=== PATIENT | male | born 1945 | race Caucasian/White ===

== ENCOUNTER → 2018-08-12 16:28 | Outpatient (CLI) | payer OTHER, SELFPAY ==
[2018-08-12 17:56] LABS: Add Manual Diff / Slide Review NO; Basophils Absolute Auto 100 /uL (0-100); Basophils Percent Auto 1.2 % (0-2); Eosinophils Absolute Auto 400 /uL (0-450); Eosinophils Percent Auto 6.9 % (2-4); Hematocrit 45.5 % (41-53); Hemoglobin 15.3 g/dL (13.5-17.5); Lymphocytes Absolute Auto 1600 /uL (1100-4500); Lymphocytes Percent Auto 25.4 % (25-40); Mean Corpuscular HGB Conc 33.7 % (30-36); Monocytes Absolute Auto 700 /uL (0-900); Monocytes Percent Auto 11.8 % (3-14); Neutrophils Absolute Auto 3400 /uL (1500-7000); Neutrophils Percent Auto 54.7 % (50-75); Platelet Count 281 X10^3/uL (150-400); Red Blood Cell Count 4.79 X10^6/uL (4.5-5.9); Red Cell Distribution Width 13.3 % (11.6-14.8); White Blood Cell Count 6.2 X10^3/uL (4.5-11.0)
[2018-08-12 18:18] LABS: Alanine Aminotransferase 26 IU/L (21-72); Albumin 4.4 g/dL (3.5-5.0); Albumin Globulin Ratio 1.6 (1.0-2.8); Alkaline Phosphatase 91 U/L (38-126); Aspartate Aminotransferase 29 IU/L (17-59); BUN Creatinine Ratio 21.7 (6-22); Bilirubin Total 0.7 mg/dL (0.2-1.3); Blood Urea Nitrogen 13 mg/dL (9-20); Calcium 9.1 mg/dL (8.4-10.2); Carbon Dioxide 23 mmol/L (22-32); Chloride 93 mmol/L (98-107); Estimated Glomerular Filt Rate > 60.0 mL/min (>60); Globulin 2.7 g/dL (1.7-4.1); Glucose 122 mg/dL (80-110); HEMOLYSIS 38 (0-50); Potassium 4.4 mmol/L (3.4-5.1); Sodium 129 mmol/L (137-145); Total Protein 7.1 g/dL (6.3-8.2)
[2018-08-12 18:47] LABS: Prostate Specific Antigen Scrn 0.724 ng/mL (0.1-4.0)
== END ==
PROVIDERS: Family Provider Family Medicine; PCP Family Medicine; Visit Provider Family Medicine
DX: I10 Essential (primary) hypertension (principal); Z51.81 Encounter for therapeutic drug level monitoring; Z12.5 Encounter for screening for malignant neoplasm of prostate
CPT/HCPCS: 36415; 80053; 84443; 85025; G0103

== ENCOUNTER → 2019-01-24 10:48 | Outpatient (CLI) | payer OTHER, SELFPAY ==
[2019-01-24 11:36] LABS: Alanine Aminotransferase 25 IU/L (21-72); Albumin 4.4 g/dL (3.5-5.0); Albumin Globulin Ratio 1.4 (1.0-2.8); Alkaline Phosphatase 71 U/L (38-126); Aspartate Aminotransferase 25 IU/L (17-59); BUN Creatinine Ratio 17.1 (6-22); Bilirubin Total 1.3 mg/dL (0.2-1.3); Blood Urea Nitrogen 12 mg/dL (9-20); Calcium 9.3 mg/dL (8.4-10.2); Carbon Dioxide 25 mmol/L (22-32); Chloride 95 mmol/L (98-107); Estimated Glomerular Filt Rate > 60.0 mL/min (>60); Globulin 3.1 g/dL (1.7-4.1); Glucose 111 mg/dL (80-110); HEMOLYSIS < 15 (0-50); Potassium 4.5 mmol/L (3.4-5.1); Sodium 129 mmol/L (137-145); Total Protein 7.5 g/dL (6.3-8.2)
[2019-01-24 14:05] LABS: Hemoglobin A1C% w Est Avg Glu 5.2 % (4.0-6.0)
== END ==
PROVIDERS: PCP Family Medicine; Visit Provider Family Medicine
DX: I10 Essential (primary) hypertension (principal); R73.9 Hyperglycemia, unspecified
CPT/HCPCS: 36415; 80053; 83036

== ENCOUNTER → 2019-04-06 16:37 | Outpatient (CLI) | payer OTHER, SELFPAY ==
[2019-04-06 18:07] LABS: Add Manual Diff / Slide Review NO; Basophils Absolute Auto 100 /uL (0-100); Basophils Percent Auto 1.1 % (0-2); Eosinophils Absolute Auto 300 /uL (0-450); Eosinophils Percent Auto 5.2 % (2-4); Hematocrit 45.8 % (41-53); Hemoglobin 15.8 g/dL (13.5-17.5); Lymphocytes Absolute Auto 1200 /uL (1100-4500); Lymphocytes Percent Auto 18.1 % (25-40); Mean Corpuscular HGB Conc 34.4 % (30-36); Mean Corpuscular Hemoglobin 32.9 PG (26-34); Mean Corpuscular Volume 95.6 fL (80-100); Monocytes Absolute Auto 700 /uL (0-900); Neutrophils Absolute Auto 4100 /uL (1500-7000); Neutrophils Percent Auto 64.6 % (50-75); Platelet Count 291 X10^3/uL (150-400); Red Blood Cell Count 4.79 X10^6/uL (4.5-5.9); White Blood Cell Count 6.4 X10^3/uL (4.5-11.0)
[2019-04-06 18:47] LABS: TSH w/ Reflex to FT4 1.44 uIU/mL (0.47-4.68)
== END ==
PROVIDERS: PCP Family Medicine; Visit Provider Family Medicine
DX: I44.0 Atrioventricular block, first degree (principal); R55 Syncope and collapse; R73.9 Hyperglycemia, unspecified
CPT/HCPCS: 36415; 84443; 85025

== ENCOUNTER → 2019-04-12 07:10 | Outpatient (CLI) | payer OTHER, SELFPAY ==
--- NOTE | 2019-04-12 08:17 | P.PCN_ITS ---
Cardiac Stress Test Report Referral & Results Date Patient Seen: 04/12/19 Time Patient Seen: 08:00 Requesting provider: Christopher Pryor Indication: Syncope Rest ECG: NSR Procedure Note: Today following both written and verbal informed consent the patient was exercised according to a standard Surendra protocol patient went for a total of 6 minutes achieving a maximum heart rate of 125 maximum systolic blood pressure of 208. This is approximately 7 METs. Exercise was terminated at this point because of fatigue. Patient was also given Cardiolite through a previously started Hep-Lock IV by the electroplating technician approximately 1 minute prior to the cessation of exercise. No signs or symptoms of angina. Occasional PVCs, but no other EKG changes. Normal hemodynamic response to exercise. CHEVY +10% on active scale. Impression: Low probability for ischemia. Will await perfusion imaging. Please note: Actual ECG tracings can be found in the PACS system.
--- NOTE | 2019-04-15 07:39 | DI.NM.S_ITS ---
DATE OF SERVICE: 04/12/2019 ORDERING PHYSICIAN: Christopher Pryor M.D. PROCEDURE PERFORMED: Exercise treadmill stress and rest myocardial perfusion imaging with gating to assess ejection fraction and regional wall motion. INDICATIONS: The patient is a 73-year-old hypertensive male with recent lightheadedness and an abnormal ECG. EXERCISE TREADMILL TESTING: The patient was able to exercise for a total of 6 minutes 2 seconds on a standard Surendra protocol, suggesting moderately impaired exercise capacity with an CHEVY of +15%. He had a normal heart rate response to exercise, achieving a maximum heart rate of 144 bpm (97% of his predicted maximum) and a mild hypertension blood pressure response with a resting blood pressure of 150/92, increasing to a maximum of 208/100. He had no chest discomfort. His resting ECG is normal with sinus rhythm. There were no significant ST segment shifts with exercise. There are rare isolated PVCs with exercise but no complex ectopy. At 5 minutes 10 seconds of exercise, at a heart rate of 124 bpm, 21.3 mCi of technetium-99 Myoview was injected and the patient was imaged 15 minutes later using a gated SPECT acquisition protocol. He returned 2 days later and was re- injected with an additional 20.4 mCi of technetium-99 Myoview and was imaged 30 minutes later, again using a gated SPECT acquisition protocol. FINDINGS: 1. Raw data: There is fairly good myocardial tracer uptake. Mild motion is noted on both the stress and the rest images, which could introduce artifact. The lung/heart ratio is normal at 0.30 with a normal TID ratio of 0.88. 2. Quantitative gated SPECT: Post-stress ejection fraction is estimated at 71% without any focal wall motion abnormality. Resting ejecting fraction is also 71% with a mildly increased end-diastolic volume of 140 mL. 3. Myocardial perfusion imaging: Post-stress supine images show a fairly normal myocardial perfusion pattern without any significant perfusion defects. There is a normal perfusion pattern in the prone position. The resting images show a similar perfusion pattern without any areas of improvement. CONCLUSION: 1. Normal myocardial perfusion study. 2. No evidence of myocardial ischemia or previous myocardial infarction. 3. Normal left ventricular systolic function without focal wall motion abnormalities although with mildly increased left ventricular volumes. 4. Moderately impaired exercise capacity without angina or ECG evidence of ischemia. He had a mild hypertensive blood pressure response to exercise. Troy Tineo - RS/fn/ts doc#: [id number]/job#: [id number] dd: 04/14/2019 12:52:00 dt: 04/15/2019 07:07:00 DICTATING MD/COPIES TO: Talat Marcelino MD; Christopher Pryor M.D. COPIES MNE: CLAUDIA MCMAHON
== END ==
PROVIDERS: PCP Family Medicine; Visit Provider Family Medicine
DX: R55 Syncope and collapse (principal); I44.0 Atrioventricular block, first degree; R94.31 Abnormal electrocardiogram [ECG] [EKG]; I10 Essential (primary) hypertension; R42 Dizziness and giddiness
CPT/HCPCS: 78452; 93016; 93017; 93018; A9502

== ENCOUNTER → 2019-04-24 07:54 | Outpatient (CLI) | payer OTHER, SELFPAY ==
--- NOTE | 2019-04-24 07:57 | DI.ECHO.S_ITS ---
[facility]---------+ [facility] +---------+ : : [address] : : [place], [place] : : : : [id number] : : : : Phone: [phone]+ Echocardiogram Report + + :Name: JACOB MACIAS Study Date: 04/24/2019 Height: 68 in : :[facility] Weight: 230 lb : : Gender: Male BSA: 2.2 m2 : :: 1945 Age: 73 yrs BP: 164/96 mmHg: :Reason For Study: Syncope : : Performed By: Anderson Gore : + + Interpretation Summary The study quality was technically difficult. Left ventricular ejection fraction is estimated to be 60 +/- 5%. Regional wall motion abnormalities cannot be excluded due to limited visualization. There is mild mitral regurgitation. Procedure: A two-dimensional transthoracic echocardiogram with color flow and Doppler was performed. The study quality was technically difficult. There is no prior echocardiogram noted for this patient. The patient was in normal sinus rhythm during the exam. Left Ventricle: The left ventricle is normal in size. There is mild-moderate concentric left ventricular hypertrophy. The left ventricular ejection fraction is grossly normal. Left ventricular ejection fraction is estimated to be 60 +/- 5%. Regional wall motion abnormalities cannot be excluded due to limited visualization. Right Ventricle: The right ventricle is normal in size and function. Atria: The left atrium is mildly dilated. Right atrial size is normal. The interatrial septum is intact with no evidence for an atrial septal defect. Mitral Valve: The mitral valve is normal in structure and function. There is mild mitral regurgitation. Aortic Valve: The aortic valve is trileaflet. There is mild aortic valve sclerosis. The aortic valve opens well. There is trace aortic regurgitation. Tricuspid Valve: The tricuspid valve is normal in structure and function. There is trace tricuspid regurgitation. Pulmonary artery pressures cannot be estimated because of the lack of a measurable TR jet velocity. Pulmonic Valve: The pulmonic valve is not well visualized. There is trace pulmonic regurgitation. Great Vessels: The aortic root is mildly dilated. The dimensions of the ascending aorta are normal. The pulmonary artery is normal size. The IVC is of normal diameter and collapses greater than 50% with a sniff. This suggests a low right atrial pressure of 3 mm Hg. Pericardium/ Pleura There is no pericardial effusion. There is no pleural effusion. MMode/2D Measurements & Calculations LVIDd: 4.5 cm LVOT diam: 2.1 cm LVIDs: 2.7 cm Ao root diam: 4.0 cm FS: 38.9 % Aortic Jxn: 3.0 cm EPSS: 0.90 cm asc Aorta Diam: 3.4 cm IVSd: 1.4 cm LVPWd: 1.4 cm LV franco. diameter/BSA (cm/m^2): 2.1 LV sys. diameter/BSA (cm/m^2): 1.3 LA A2 area: 23.3 cm2 RA long axis: 5.0 cm LA A4 area: 20.7 cm2 RA area: 11.0 cm2 LA length (vol): 5.4 cm RA vol: 20.9 ml LA vol: 76.4 ml RA : 9.6 ml/m2 LA vol index: 35.2 ml/m2 TAPSE: 1.9 cm Doppler Measurements & Calculations Ao V2 max: 129.2 cm/sec LVOT Max Clare: 109.9 cm/sec Ao V2 mean: 90.8 cm/sec LV V1 max P.8 mmHg Ao max P.7 mmHg LV V1 VTI: 25.4 cm Ao mean P.7 mmHg RELL(I,D): 3.0 cm2 Ao V2 VTI: 28.2 cm RELL(V,D): 2.8 cm2 sev ratio: 0.90 RELL indexed to BSA (cm^2/m^2): 1.4 MV E max clare: 48.7 cm/sec PA V2 max: 85.4 cm/sec MV A max clare: 80.3 cm/sec PA V2 mean: 63.1 cm/sec MV E/A: 0.61 PA mean P.7 mmHg Med Peak E' Clare: 4.2 cm/sec PA Accel Time: 0.12 sec E/E' med: 11.5 Lat Peak E' Clare: 5.4 cm/sec E/E' lat: 9.1 E/e' average: 10.3 MV dec time: 0.27 sec SV(LVOT): 84.0 ml Reading Physician:09:[id number]
== END ==
PROVIDERS: PCP Family Medicine; Visit Provider Family Medicine
DX: I08.0 Rheumatic disorders of both mitral and aortic valves (principal); R55 Syncope and collapse; I44.0 Atrioventricular block, first degree
CPT/HCPCS: 93306

== ENCOUNTER → 2019-10-06 08:49 | Outpatient (CLI) | payer MEDICARE, SELFPAY ==
[2019-10-06 09:36] LABS: Add Manual Diff / Slide Review NO; Basophils Absolute Auto 100 /uL (0-100); Basophils Percent Auto 1.9 % (0-2); Eosinophils Absolute Auto 400 /uL (0-450); Eosinophils Percent Auto 8.4 % (2-4); Hematocrit 42.5 % (41-53); Hemoglobin 14.7 g/dL (13.5-17.5); Lymphocytes Absolute Auto 1400 /uL (1100-4500); Lymphocytes Percent Auto 26.3 % (25-40); Mean Corpuscular HGB Conc 34.5 % (30-36); Mean Corpuscular Hemoglobin 32.8 PG (26-34); Mean Corpuscular Volume 95.1 fL (80-100); Monocytes Absolute Auto 600 /uL (0-900); Monocytes Percent Auto 11.8 % (3-14); Neutrophils Absolute Auto 2700 /uL (1500-7000); Neutrophils Percent Auto 51.6 % (50-75); Platelet Count 267 X10^3/uL (150-400); Red Blood Cell Count 4.47 X10^6/uL (4.5-5.9); Red Cell Distribution Width 13.1 % (11.6-14.8); White Blood Cell Count 5.2 X10^3/uL (4.5-11.0)
[2019-10-06 09:45] LABS: Alanine Aminotransferase 21 IU/L (<50); Albumin Globulin Ratio 1.4 (1.0-2.8); Alkaline Phosphatase 68 U/L (38-126); Aspartate Aminotransferase 23 IU/L (17-59); Bilirubin Total 0.7 mg/dL (0.2-1.3); Blood Urea Nitrogen 16 mg/dL (9-20); Calcium 9.4 mg/dL (8.4-10.2); Carbon Dioxide 23 mmol/L (22-32); Chloride 99 mmol/L (98-107); Estimated Glomerular Filt Rate > 60.0 mL/min (>60); Globulin 2.8 g/dL (1.7-4.1); Glucose 101 mg/dL (80-110); HEMOLYSIS 16 (0-50); Potassium 4.4 mmol/L (3.4-5.1); Sodium 130 mmol/L (137-145); Total Protein 6.8 g/dL (6.3-8.2)
[2019-10-06 10:55] LABS: Free T3, Triiodothyronine Free 3.57 pg/mL (2.77-5.27); Free T4, Direct Thyroxine 1.13 ng/dL (0.78-2.19)
[2019-10-06 11:02] LABS: Vitamin D 25 Hydroxy (D3) 74.9 ng/mL (30.0-100.0)
[2019-10-06 11:09] LABS: Thyroid Stimulating Hormone 1.84 uIU/mL (0.47-4.68)
== END ==
PROVIDERS: PCP Family Medicine; Referring Provider Family Medicine; Visit Provider Family Medicine
DX: I10 Essential (primary) hypertension (principal); R73.9 Hyperglycemia, unspecified
CPT/HCPCS: 36415; 80053; 82306; 84439; 84443; 84481; 85025

== ENCOUNTER 2020-01-06 14:17 | Observation (INO) | payer MEDICARE, SELFPAY ==
--- NOTE | 2020-01-06 14:23 | DI.CT.S_ITS ---
PROCEDURE: CT HEAD/BRAIN WO CON INDICATIONS: dizzy with falls TECHNIQUE: Noncontrast 4.5 mm thick angled axial sections acquired from the foramen magnum to the vertex, with coronal and sagittal reformats. For radiation dose reduction, the following was used: automated exposure control, adjustment of mA and/or kV according to patient size. COMPARISON: None. FINDINGS: Image quality: Excellent. CSF spaces: Basal cisterns are patent. No extra-axial fluid collections. The ventricles are symmetric in size and shape. Brain: No intracranial bleeds or masses. There is cerebral volume loss for age, with resultant ventricular and sulcal prominence. There are moderate to severe periventricular and deep white matter chronic small vessel ischemic changes. There is intracranial internal carotid artery atherosclerosis. Skull and face: Calvarium and visualized facial bones appear intact, without suspicious lesions. Sinuses: Visualized sinuses and mastoids are clear. IMPRESSION: 1. Age related volume loss and moderate to severe small vessel ischemic change. 2. No evidence acute stroke, hemorrhage, or mass. Dictated by: Kash Perea M.D. on 01/06/2020 at 13:41 Approved by: Kash Perea M.D. on 01/06/2020 at 13:43
[2020-01-06 14:26] VITALS: BP 176/89; PULSE 80; RESP 16; TEMP 35.8; O2SAT 97; BMI 35.7
[2020-01-06 14:50] LABS: Add Manual Diff / Slide Review NO; Basophils Absolute Auto 100 /uL (0-100); Eosinophils Absolute Auto 300 /uL (0-450); Eosinophils Percent Auto 5.8 % (2-4); Hematocrit 42.2 % (41-53); Hemoglobin 14.7 g/dL (13.5-17.5); Lymphocytes Absolute Auto 900 /uL (1100-4500); Lymphocytes Percent Auto 16.2 % (25-40); Mean Corpuscular HGB Conc 34.8 % (30-36); Mean Corpuscular Hemoglobin 32.9 PG (26-34); Mean Corpuscular Volume 94.5 fL (80-100); Monocytes Absolute Auto 700 /uL (0-900); Monocytes Percent Auto 13.4 % (3-14); Neutrophils Absolute Auto 3400 /uL (1500-7000); Neutrophils Percent Auto 63.6 % (50-75); Platelet Count 270 X10^3/uL (150-400); Red Blood Cell Count 4.47 X10^6/uL (4.5-5.9); Red Cell Distribution Width 12.7 % (11.6-14.8); White Blood Cell Count 5.4 X10^3/uL (4.5-11.0)
--- NOTE | 2020-01-06 14:54 | PC.NURSE ---
at bedside for eval
--- NOTE | 2020-01-06 14:56 | ED_ITS ---
HPI - Dizziness General Chief Complaint: Dizziness Stated Complaint: Dizzy and Falling Time Seen by Provider: 01/06/20 14:20 Source: patient Mode of arrival: Ambulatory Limitations: no limitations History of Present Illness HPI Narrative: 74-year-old male former smoker with history of hypertension presents with a chief complaint of a few days of multiple episodes of significant dizziness. He denies any other neurologic findings such as blurred vision, trouble with speech or focal numbness, tingling or weakness. He denies any injury. He denies any recent illness including runny nose, sneezing, coughing, inner ear trouble. He denies any chest pain or shortness of breath. He states that it started while on a massage table a few days ago when he was asked to roll over. He denies any change in diet or medications. Patient not activated as code stroke given duration of symptoms. MD complaint: dizziness Onset (ago): day(s) Timing: sudden onset Description: sense of movement and room spinning History of similar episodes: No History of trauma: No Severity: moderate Relieving factors: nothing Exacerbating factors: movement Related Data Home Medications Medication Instructions Recorded Confirmed FOLIC ACID/VIT A/VIT B1/VIT 1 tab PO QDAY #0 11/17/10 10/24/19 (#MULTIVITAMIN) Previous Rx's Medication Instructions Recorded fluoxetine 20 mg capsule 80 mg PO DAILY #360 cap 08/14/19 tamsulosin 0.4 mg capsule 0.4 mg PO QDAY #90 cap 11/14/19 losartan 100 mg tablet 100 mg PO DAILY #90 tab 01/03/20 Allergies Allergy/AdvReac Type Severity Reaction Status Date / Time No Known Drug Allergies Allergy Unknown Verified 10/24/19 10:34 neopreen Allergy Severe rash Uncoded 06/14/19 10:01 Review of Systems Constitutional Constitutional: Denies chills, Denies fatigue, Denies fever(s), Denies frequent falls, Denies lethargy and Denies weakness Eyes Eyes: Denies change in vision, Denies eye discharge, Denies irritation and Denies loss of vision ENT Ears, Nose, Mouth, and Throat: Denies change in voice, Denies dizziness, Denies neck pain, Denies sore throat and Denies throat swelling Cardiovascular Cardiovascular: Denies chest pain, Denies irregular heart rhythm, Denies lightheadedness, Denies palpitations, Denies dyspnea, Denies dyspnea on exertion and Denies orthopnea Respiratory Respiratory: Denies cough, Denies dyspnea, Denies dyspnea on exertion and Denies wheezing Gastrointestinal Gastrointestinal: Denies abdominal pain, Denies change in bowel habits, Denies diarrhea, Denies nausea and Denies vomiting Musculoskeletal Musculoskeletal: Denies neck pain and Denies numbness Integumentary/Breasts Skin/Breast: Denies pruritus, Denies erythema, Denies rash and Denies wounds Neurologic Neurologic: Denies behavioral changes, Denies confusion, Denies dizziness, Denies frequent falls, Denies loss of vision, Denies numbness and Denies weakness Psychiatric Psychiatric: Denies anxiety, Denies behavioral changes, Denies confusion, Denies depression, Denies homicidal ideation and Denies suicidal ideation Endocrine Endocrine: Denies fatigue, Denies flushing and Denies palpitations Hematologic/Lymphatic Hematologic/Lymphatic: Denies easy bruising Allergic/Immunologic Allergic/Immunologic: Denies urticaria, Denies throat swelling and Denies wheezing Patient History Medical History (Updated 01/06/20 @ 15:29 by Nikita Donnelly DO) 1st degree AV block (Acute) BPH (benign prostatic hyperplasia) (Chronic Unknown) 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) Depression (Chronic Unknown) Low back pain (Acute) Obesity (BMI 30-39.9) (Acute) Osteoarthritis (Chronic Unknown) Sleep apnea (Chronic Unknown) Syncope and collapse (Acute) Weight loss counseling, encounter for (Acute) Surgical History History of tonsillectomy Status post appendectomy Status post hernia repair Family History Father Heart disease Kidney disease Loud snoring Mother Obesity Hypertension Depression Anxiety Social History Smoking Status: Former smoker Tobacco: How many years used: 59 second hand exposure: No alcohol intake: never substance use type: does not use Smoking Status: Former smoker alcohol intake frequency: holidays/special occasions only Substance Use Type: does not use Exam Narrative Exam Narrative: GENERAL: [74] year old patient appears stated age. Well- nourished, well-developed patient, in mild distress. HEAD: Atraumatic. Normocephalic. EYES: Pupils equal round and reactive. Extraocular motions intact. No scleral icterus. No injection or drainage. ENT: Moist mucous membranes Nose without bleeding, purulent drainage. Throat without erythema, tonsillar hypertrophy or exudate. Airway patent. NECK: Trachea midline. Non tender CARDIOVASCULAR: Regular rate and rhythm without murmurs, gallops, or rubs. RESPIRATORY: Clear to auscultation. Breath sounds equal bilaterally. No wheezes, rales, or rhonchi. GASTROINTESTINAL: Abdomen soft, non-tender, nondistended. EXTREMITIES: No edema or joint tenderness. BACK: Nontender without deformity or crepitance. No flank tenderness. NEURO: AOx3. SKIN: No rash or erythema of visible areas Initial Vital Signs Initial Vital Signs: Vital Signs Temperature 96.5 F L 01/06/20 14:26 Pulse Rate 80 01/06/20 14:26 Respiratory Rate 16 01/06/20 14:26 Blood Pressure 176/89 H 01/06/20 14:26 Pulse Oximetry 97 01/06/20 14:26 Scores NIH Stroke Scale Level of Conciousness: Alert, keenly responsive Ask month/age: Answers both questions correctly. Open/close eyes, close hand: Performs both tasks correctly Best gaze horizontal: Normal Visual ferreira: No visual loss Facial palsy: Normal symetrical movement Left arm drift: No drift for full 10 sec Right arm drift: No drift for full 10 sec Left leg drift: No drift for full 5 sec Right leg drift: No drift for full 5 sec Limb ataxia: Absent Sensory on face/arms/legs: Normal, no sensory loss Best language: No aphasia, normal Dysarthria: Normal Extinction or inattention: No abnormality Total NIH Stroke scale score: 0 Course Course Course Narrative: given lack of ongoing reproduction of symptoms, lack of nystagmus it is difficult to attribute this directly to a peripheral vertigo. I've discussed with stroke neurologist (Linda) who shares this opinion. 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 Attempted to order MRI today, but they are already gone. Patient requires hospitalization to further evaluate for potential of posterior circulation [facility]. Orders Ordered: ED Orders 01/06/20 14:23 CT head/brain wo con Stat 01/06/20 14:43 Basic Metabolic Panel Stat Complete Blood Count AUTO DIFF Stat NT-proBNP (BNP-Adult 18+) Stat Troponin & CK Cardiac Panel Stat Vital Signs Vital signs: Vital Signs - 8 hr 01/06/20 14:26 01/06/20 15:02 Temperature 96.5 F L Pulse Rate 80 68 Respiratory Rate 16 18 Blood Pressure 176/89 H 150/67 H Pulse Oximetry 97 MDM - Dizziness Lab Data Result diagrams: 01/06/20 14:43 01/06/20 14:43 Labs: Lab Results 01/06/20 01/06/20 Range/Units 14:43 14:43 WBC 5.4 (4.5-11.0) X10^3/uL RBC 4.47 L (4.5-5.9) X10^6/uL Hgb 14.7 (13.5-17.5) g/dL Hct 42.2 (41-53) % MCV 94.5 (80-100) fL MCH 32.9 (26-34) PG MCHC 34.8 (30-36) % RDW 12.7 (11.6-14.8) % Plt Count 270 (150-400) X10^3/uL Neut % (Auto) 63.6 (50-75) % Lymph % (Auto) 16.2 L (25-40) % [place] % (Auto) 13.4 (3-14) % Eos % (Auto) 5.8 H (2-4) % Baso % (Auto) 1.0 (0-2) % Neut # (Auto) 3400 (4144-5000) /uL Lymph # (Auto) 900 L (2493-4419) /uL [place] # (Auto) 700 (0-900) /uL Eos # (Auto) 300 (0-450) /uL Baso # (Auto) 100 (0-100) /uL Sodium 126 L (137-145) mmol/L Potassium 5.1 (3.4-5.1) mmol/L Chloride 93 L (98-107) mmol/L Carbon Dioxide 28 (22-32) mmol/L BUN 14 (9-20) mg/dL Creatinine 0.65 L (0.66-1.25) mg/dL Estimated GFR > 60.0 (>60) mL/min BUN/Creatinine Ratio 21.5 (6-22) Glucose 88 (80-110) mg/dL Calcium 9.0 (8.4-10.2) mg/dL Total Creatine Kinase 62 (55-170) U/L CK-MB (CK-2) TNP CK-MB (CK-2) Rel Index TNP Troponin I < 0.012 (0.01-0.034) ng/mL NT-Pro-B Natriuret Pep 88 (<125) pg/mL Imaging Data CT scan - head: Radiologist's Impression: [address] [address] [address] Scan Report Signed Patient: Troy Tineo FMR#: [id number] : 7Acct:[id number] Age/Sex: 74 / MDate of Service: 01/06/20 Loc: ED Accession Number: [id number] Procedure: CT head/brain wo con Ordering Provider: Nikita Donnelly D.O. PROCEDURE: CT HEAD/BRAIN WO CON INDICATIONS: dizzy with falls TECHNIQUE: Noncontrast 4.5 mm thick angled axial sections acquired from the foramen magnum to the vertex, with coronal and sagittal reformats. For radiation dose reduction, the following was used: automated exposure control, adjustment of mA and/or kV according to patient size. COMPARISON: None. FINDINGS: Image quality: Excellent. CSF spaces: Basal cisterns are patent. No extra-axial fluid collections. The ventricles are symmetric in size and shape. Brain: No intracranial bleeds or masses. There is cerebral volume loss for age, with resultant ventricular and sulcal prominence. There are moderate to severe periventricular and deep white matter chronic small vessel ischemic changes. There is intracranial internal carotid artery atherosclerosis. Skull and face: Calvarium and visualized facial bones appear intact, without suspicious lesions. Sinuses: Visualized sinuses and mastoids are clear. IMPRESSION: 1. Age related volume loss and moderate to severe small vessel ischemic change. 2. No evidence acute stroke, hemorrhage, or mass. Dictated by: Kash Perea M.D. on 01/06/2020 at 13:41 Approved by: Kash Perea M.D. on 01/06/2020 at 13:43 ECG Data Attestation: I personally reviewed and interpreted this ECG as follows: Prior ECG tracings: not available for review Interpretation: EKG is normal sinus rhythm rate [ 70] and free of any signs of ischemia or ectopy. No ST segmental elevation or depression. No T wave inversions. AR prolonged (1st degree AV Block) at 224 Discharge Plan Departure Patient Disposition: Admitted as Observation Clinical Impression: Brain TIA, Acute hyponatremia Referrals: Christopher Pryor DO [Primary Care Provider] -
[2020-01-06 15:00] LABS: BUN Creatinine Ratio 21.5 (6-22); Blood Urea Nitrogen 14 mg/dL (9-20); Carbon Dioxide 28 mmol/L (22-32); Chloride 93 mmol/L (98-107); Creatine Kinase 62 U/L (55-170); Estimated Glomerular Filt Rate > 60.0 mL/min (>60); Glucose 88 mg/dL (80-110); Potassium 5.1 mmol/L (3.4-5.1); Sodium 126 mmol/L (137-145)
[2020-01-06 15:02] VITALS: BP 150/67; PULSE 68; RESP 18
[2020-01-06 15:06] LABS: HEMOLYSIS 90 (0-50)
[2020-01-06 15:12] LABS: NT-proBNP (BNP-Adult 18+) 88 pg/mL (<125); Troponin I < 0.012 ng/mL (0.01-0.034)
[2020-01-06 17:06] VITALS: BP 173/82; PULSE 69; RESP 19; O2SAT 97
[2020-01-06 17:40] LABS: Bacteria Urine None Seen; RBC Urine None Seen (0-5/HPF); WBC Urine None Seen (0-5/HPF)
[2020-01-06 17:46] LABS: Amorphous Sediment Urine 2+; Culture Indicated Urine Cult Not Indicated; Squamous Epithelial Cell Urine 0-1 /HPF (0-5/HPF)
[2020-01-06 17:50] VITALS: BP 162/95; PULSE 69; RESP 18; TEMP 36.8; O2SAT 96
[2020-01-06 17:53] LABS: COVID19 -Nasal RAPID Negative (Negative)
--- NOTE | 2020-01-06 18:35 | P.HP_ITS ---
History of Present Illness History of Present Illness Date Patient Seen: 01/06/20 Chief complaint: Dizzy and Falling Narrative: The patient is a 74-year-old male with a history of hypertension, chronic hyponatremia, obesity, depression, benign prostatic hypertrophy who was in his usual state of health until . The patient was getting massage rolled over and developed abrupt onset of vertigo. Describes the room is spinning feeling dizzy. That seemed to resolve. The patient got up to go to the restroom on Wednesday morning and fell on the ground because of severe dizziness. He had no numbness tingling shortness of breath with that no nausea or vomiting with that. Patient presented to the emergency room for evaluation as he had had 2 episodes of severe vertigo. In the emergency room he underwent a head CT which was negative. When transferring from the chair to the CT table the patient had another episode of severe vertigo. The room was actually spinning. He had some dizziness associated. That quickly resolved. He denies any slurring of his speech and he weakness of his arms or legs any headache any blurred vision or double vision. Patient has had no prior episodes of incidence like this. Given the severity of the vertigo the patient is admitted to the [facility] for further evaluation. 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) Depression (Chronic Unknown) FH: bilateral hip replacements (Acute) Low back pain (Acute) Obesity (BMI 30-39.9) (Acute) Osteoarthritis (Chronic Unknown) Sleep apnea (Chronic Unknown) Syncope and collapse (Acute) Weight loss counseling, encounter for (Acute) Surgical History History of tonsillectomy Status post appendectomy Status post hernia repair Family & Social History Family History Father Heart disease Kidney disease Loud snoring Mother Obesity Hypertension Depression Anxiety Safety & Behavioral: Feels Safe in Current Yes Environment Been Physically Hurt or No Threatened By a Person Tobacco & Substance use: Smoking Status Former smoker alcohol intake never alcohol intake frequency holiday/special occasion Substance Use Type does not use Meds Home Medications and Allergies Home Medications Medication Instructions Recorded Confirmed Type tamsulosin 0.4 mg capsule 0.4 mg PO QDAY #90 cap 11/14/19 01/06/20 Rx fluoxetine [Prozac] 80 mg PO DAILY 01/06/20 01/06/20 History losartan [Cozaar] 100 mg PO DAILY 01/06/20 01/06/20 History Allergies Allergy/AdvReac Type Severity Reaction Status Date / Time No Known Drug Allergies Allergy Unknown Verified 10/24/19 10:34 neopreen Allergy Severe rash Uncoded 06/14/19 10:01 Review of Systems Review of Systems ROS: Yes All systems reviewed with the patient and are negative except as otherwise documented Exam Vital Signs (past 8 hours): - 01/06/20 14:26 01/06/20 15:02 01/06/20 17:06 Temperature 96.5 F L Pulse Rate 80 68 69 Respiratory Rate 16 18 19 Blood Pressure 176/89 H 150/67 H 173/82 H Pulse Oximetry 97 97 01/06/20 17:50 Temperature 98.3 F Pulse Rate 69 Respiratory Rate 18 Blood Pressure 162/95 H Pulse Oximetry 96 Oxygen Delivery Method Room Air Narrative Exam Narrative: Pleasant elderly male lying in bed in no obvious distress HEENT: Normocephalic atraumatic, extraocular muscles are intact, no facial asymmetry, tongue is midline speech is fluent Neck: Supple without adenopathy, no carotid bruits noted Lungs clear to auscultation Cardiac exam: Regular rate rhythm normal S1-S2 with a 2/6 systolic ejection murmur Abdomen: Soft nontender nondistended without hepatosplenomegaly Extremities: No edema Skin: Erythematous plaques on the knees bilaterally Neuro exam: Cranial nerves 2-12 are intact, strength is symmetric and equal, sensation is grossly intact, gait is not assessed NIH stroke scale score of 0 Objective Labs Result Diagrams: 01/06/20 14:43 01/06/20 14:43 Labs: Laboratory Results - last 24 hr 01/06/20 01/06/20 01/06/20 14:43 14:43 17:23 WBC 5.4 RBC 4.47 L Hgb 14.7 Hct 42.2 MCV 94.5 MCH 32.9 MCHC 34.8 RDW 12.7 Plt Count 270 Neut % (Auto) 63.6 Lymph % (Auto) 16.2 L [place] % (Auto) 13.4 Eos % (Auto) 5.8 H Baso % (Auto) 1.0 Neut # (Auto) 3400 Lymph # (Auto) 900 L [place] # (Auto) 700 Eos # (Auto) 300 Baso # (Auto) 100 Sodium 126 L Potassium 5.1 Chloride 93 L Carbon Dioxide 28 BUN 14 Creatinine 0.65 L Estimated GFR > 60.0 BUN/Creatinine Ratio 21.5 Glucose 88 Calcium 9.0 Total Creatine Kinase 62 CK-MB (CK-2) TNP CK-MB (CK-2) Rel Index TNP Troponin I < 0.012 NT-Pro-B Natriuret Pep 88 Urine RBC None seen Urine WBC None seen Ur Squamous Epith Cells 0-1 /hpf Amorphous Sediment 2+ Urine Bacteria None seen Ur Culture Indicated? Cult not indicated COVID-19 PCR 01/06/20 17:23 WBC RBC Hgb Hct MCV MCH MCHC RDW Plt Count Neut % (Auto) Lymph % (Auto) [place] % (Auto) Eos % (Auto) Baso % (Auto) Neut # (Auto) Lymph # (Auto) [place] # (Auto) Eos # (Auto) Baso # (Auto) Sodium Potassium Chloride Carbon Dioxide BUN Creatinine Estimated GFR BUN/Creatinine Ratio Glucose Calcium Total Creatine Kinase CK-MB (CK-2) CK-MB (CK-2) Rel Index Troponin I NT-Pro-B Natriuret Pep Urine RBC Urine WBC Ur Squamous Epith Cells Amorphous Sediment Urine Bacteria Ur Culture Indicated? COVID-19 PCR Negative Assessment & Plan Assessment & Plan narrative: Impression 1. 74-year-old male admitted to the hospital with abrupt onset of vertigo -suspect benign positional vertigo -however given severity agree with further workup to include evaluation of cerebellar infarct -head MRI in the morning -PT consultation tomorrow -consider meclizine if vertigo return -will start him on a baby aspirin a CIWA -will start Lovenox for DVT prophylaxis -will obtain a fasting lipid profile -head CT unremarkable 2. Hypertension -continue losartan 3. Hyponatremia -may be related to SIADH from his as SSRI -discussed with the patient -will defer to PCP to evaluate for -will start on fluid restriction this evening 4. Benign prostatic hypertrophy -continue tamsulosin 5. Depression -continue fluoxetine for Patient is a full code will note that his record accordingly Patient admitted under observation anticipate discharge home tomorrow
[2020-01-06 18:46] VITALS: BMI 35.7
[2020-01-06] MEDS: TAMSULOSIN 0.4 MG CAPSULE PO (20:25)
[2020-01-06 21:46] VITALS: BP 164/80; PULSE 66; RESP 18; TEMP 36.2; O2SAT 97
[2020-01-06 23:30] VITALS: BP 155/87; PULSE 62; RESP 16; TEMP 36.4; O2SAT 95
[2020-01-07] VITALS (7 sets, daily range): BP systolic 154–176; BP diastolic 84–98; PULSE 61–72; RESP 16–20; TEMP 36.4–37; O2SAT 94–97
[2020-01-07 05:22] LABS: BUN Creatinine Ratio 23.1 (6-22); Blood Urea Nitrogen 15 mg/dL (9-20); Calcium 8.8 mg/dL (8.4-10.2); Carbon Dioxide 27 mmol/L (22-32); Chloride 95 mmol/L (98-107); Cholesterol 141 mg/dL (140-199); Estimated Glomerular Filt Rate > 60.0 mL/min (>60); Glucose 101 mg/dL (80-110); HDL Cholesterol 41 mg/dL (40-60); HEMOLYSIS < 15 (0-50); LDL Cholesterol Calculated 84 mg/dL (<100); Potassium 4.1 mmol/L (3.4-5.1); Sodium 127 mmol/L (137-145); Triglycerides 82 mg/dL (35-150)
--- NOTE | 2020-01-07 08:30 | CM.DANOTE ---
DCP: Case received, EMR reviewed and met with patient. Introduced self and role. Was able to obtain some information from patient regarding his baseline activity status prior to hospitalization. DCP assessment completed with information currently available. Patient is a 74 year old male who admitted yesterday afternoon to the care of the hospitalist team. PCP: Dr. Pryor. Payer: confirmed: [facility]. Patient came to the hospital via private vehicle secondary to dizziness. Patient holds current diagnosis of vertigo, as well as hyponatremia. He may be having an MRI today. He also has P.T/O.T. orders. He has history of HTN, as well as AV Block. Met with patient in his room. He was sitting up on the edge of his bed having breakfast. He is alert and oriented. He stated, this dizziness is new to him. Asked him about falls, and he indicated he fell just once, due to the dizziness. Patient stated that he is independent at baseline, drove himself here. He uses no DME supplies. He resides here in [place] with his spouse, Angella. Confirmed with him that his primary provider is Dr. Pryor. P: DCP to continue to follow. Will also discuss at team rounds, and will consult with P.T. Patient should be able to go home when he is medically stable. Jackelin De La Cruz RN/Art Tracer
[2020-01-07] MEDS: LOSARTAN 50 MG TABLET 100 MG PO (08:44)
[2020-01-07] MEDS: ASPIRIN EC 81 MG TABLET PO (08:44)
[2020-01-07] MEDS: FLUoxetine 20 MG CAPSULE 80 MG PO (08:44)
[2020-01-07] MEDS: ENOXAPARIN 40 MG/0.4 ML SYRINGE SUBCUT (08:44)
[2020-01-07] MEDS: SODIUM CHLORIDE 0.9% FLUSH 10 ML IV ×2 (08:44→20:48)
--- NOTE | 2020-01-07 10:49 | PT.IIE ---
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) Depression (Chronic Unknown) FH: bilateral hip replacements (Acute) Low back pain (Acute) Obesity (BMI 30-39.9) (Acute) Osteoarthritis (Chronic Unknown) Sleep apnea (Chronic Unknown) Syncope and collapse (Acute) Weight loss counseling, encounter for (Acute) Physical Therapy Inpatient Evaluation/Re-Eval M1 PT/OT-IP Prior Functional Status Start: 01/07/20 10:17 Freq: NEEDED Status: Active Protocol: Document 01/07/20 10:18 [facility] (Rec: 01/07/20 10:49 [facility] [id number]) Medical Review Prior Functional Status Medical History Reviewed Yes Diet/Fluid Consistency Regular Communication communication with nursing prior to Pt treatment. per ER documentation and rounds this AM Troy is awaiting a MRI to rule out posterior circulation stroke. In the ER there was a lack of nystagmus and it was difficult to asses if dizzyness is peripheral vertigo or posterior circulation stroke. No MRI available today (wednesday) so pt most likely staying another night in the hospital to have MRI on Wednesday AM Mobility and Gait pt ambulates independently without assistive device Activities of Daily Living and IADL's Ind for all ADL's Social History Household Members spouse Living Arrangements House Employment Status Retired M2 PT-IP Current Condition Start: 01/07/20 10:17 Freq: NEEDED Status: Active Protocol: Document 01/07/20 10:18 [facility] (Rec: 01/07/20 10:49 [facility] [id number]) Physical Therapy Current Condition Current Condition Evaluation Date 01/07/20 Treatment Diagnosis Dizzyness, vertigo Onset Date 01/04/20 during a massage Weight Bearing Status Weight Bearing Status Full Weight Bearing M3 PT-IP Subjective Start: 01/07/20 10:17 Freq: NEEDED Status: Active Protocol: Document 01/07/20 10:18 [facility] (Rec: 01/07/20 10:49 [facility] [id number]) Subjective Physical Therapy Visit Type Type Initial Evaluation Visit Start Time 09:50 Visit Stop Time 10:15 Total Visit Minutes 30 Notes pt laying comfortably in bed, no c/o dizzyness at rest. Physical Therapy Visit Comments Patient Comments Pt agress to PT an states he needs to get up to use the rest room. Per patient report his symptoms started during a massage. He was laying on his back and was asked to turn over and that is when his symptoms began. He states he went home after the massage but continued to have episodes of dizzyness. He drove himself to the ER on 04/14. He reports when he transfered from one bed to another in the ER the dizzyness came on suddenly. Other than that he is not able to attribute any other positions that have caused the dizzyness. Troy denies any other neurologic findings such as blurred vision, trouble with speech or focal numbness. Patient Goals Pts goals are to eliminate dizzyness episodes. Therapy Pain Assessment Pain Present Pain Present Denied Pain M4 PT-IP Mobility and Gait Start: 01/07/20 10:17 Freq: NEEDED Status: Active Protocol: Document 01/07/20 10:18 [facility] (Rec: 01/07/20 10:49 [facility] [id number]) PT-Bed Mobility Assessment Rolling Level of Assist Independent Supine to Sit Supine to Sit Standby Assistance Sit to Supine Sit to Supine Standby Assistance Scooting Scooting to Edge of Bed Standby Assistance PT-Transfer Assessment Sit to and From Stand Sit to and from Stand Standby Assistance Equipment Transfer Assistive Device Gait Belt Orthotic/Prosthetic Devices or Brace: No Transfers Transfer Destination Toilet Transfer Ability Level of Assist Standby Assistance Comments Mobility Comments pt transferred from supine to sitting at the edge of the bed with SBA and dizziness was assessed. No dizziness from supine to sit this am. After a few minutes of sitting at the edge of the bed with SBA and no dizziness Troy ambulated to the restroom with SBA. He stood to urinate with no loss of balance or c/o dizziness. He ambulated back to the bed with SBA. The doctor and nursing came in to chat with the patient and he was able to sit without support for approx 5 minutes for a conversation regarding his MRI which will be scheduled tomorrow (Wednesday) He then wished to transfer back to bed which he did IND. He noted once he laid down that he had mild dizziness, no nystagmus was noted Gait Assessment Gait Gait Assistance Required: Standby Assistance Distance (Feet) 15 Able to Maintain Weight Bearing Status Yes During Gait Assistive Devices Assistive Device Gait Belt Orthotic/Prosthetic Devices or Brace: No Gait Deviations General Gait Pattern Within Normal Limits Comments Gait Comments pt ambulated with normal gait pattern with gait belt and SBA . No loss of balance was noted. He ambulated from the bed to the bathroom and back to the bed. PT-Balance Assessment Sitting Balance and Reactions Static Sitting Balance Ability Normal Dynamic Sitting Balance Ability Normal Standing Balance and Reactions Static Standing Balance Ability Normal Dynamic Standing Balance Ability Good Comments Other Balance Tests/Deviations/Treatment Dizziness was not brought on : when patient was standing today, he did take a fall at home due to his sudden onset of dizziness. M5 PT-IP Objective Assessments Start: 01/07/20 10:17 Freq: NEEDED Status: Active Protocol: Document 01/07/20 10:18 [facility] (Rec: 01/07/20 10:49 [facility] [id number]) Orientation Orientation/Cognition Level of Alertness Alert Language Function Ability No Deficits Noted Memory Description No Deficits Noted Gross Range of Motion Upper Extremity ROM Assessment Within Functional Limits Lower Extremity ROM Assessment Within Functional Limits Impairments history of B hip replacement Strength Upper Extremity Strength Assessment Within Functional Limits Lower Extremity Strength Assessment Within Functional Limits Comments Strength Comments Right knee extension and quad strength 4/5 Coordination Assessment Gross Coordination Gross Coordination WNL Sensation Assessment Sensation Gross Sensation WNL Muscle Tone Muscle Tone WNL Yes M7 PT-IP Assessment and Plan Start: 01/07/20 10:17 Freq: NEEDED Status: Active Protocol: Document 01/07/20 10:18 [facility] (Rec: 01/07/20 10:49 [facility] [id number]) PT Summary Assessment and Plan Potential Rehabilitation Potential Good Status of Condition at Evaluation Evolving Summary Impairments Activity Tolerance Assessment Summary Troy is a 74 year old male who is awaiting a MRI for a new onset of dizziness that began 01/03/11 during a massage. The MRI is ordered to evaluate for potential of posterior circulation stroke. He denies any other neurologic findings such as blurred vision, trouble with speech or focal numbness, tingling or weakness. He is a former smoker with history of hypertension. With my examination today there was no nystagmus found. He is moving IND but I was SBA with a gait belt with him due to the history of his dizziness. He denied any dizziness at rest and with transitions from supine to sit, or sit to stand, and gait. He ambulated in his room to the bathroom and back with SBA and no loss of balance or dizziness. He did c/o dizziness when laying back down to bed. This dizziness was mild but there. He had gotten a shot for dizziness prior to our PT session today. It sounds like the plan is for him to stay another night in the hospital as MRI is not available today. He will undergo a MRI tomorrow to rule out posterior circulation stroke. Goals Bed Mobility Goal Independent Gait Goal Independent Frequency of Treatment Frequency Of Treatment Once a Day Treatment Plan Physical Therapy Treatment Plan Gait Training,Balance Retraining Recommendations To Nursing Amount of Assist Needed Standby Assistance Discharge Recommendations PT Discharge Recommendations Home Transportation Needs at Discharge Private Vehicle
[2020-01-07] MEDS: MECLIZINE HCL 12.5 MG TABLET 50 MG PO (11:37)
--- NOTE | 2020-01-07 16:14 | P.PN_ITS ---
Subjective Subjective Date Patient Seen: 01/07/20 Interval history: Patient is a 74-year-old male with history of hypertension BPH and depression admitted to the hospital for abrupt onset of dizziness. He had another episode this morning. Patient was given 1 dose of meclizine which she f marina has helped his symptoms. He is still awaiting MRI I MRI is not available today and will be obtained tomorrow. He was able to work with physical therapy today had no difficulty ambulating. Exam Vital Signs (past 8 hours): - 01/07/20 12:05 01/07/20 15:20 Temperature 97.5 F L 97.7 F Pulse Rate 66 71 Respiratory Rate 16 18 Blood Pressure 157/98 H 154/84 H Pulse Oximetry 96 94 Oxygen Delivery Method Room Air Oxygen Flow Rate 0 Narrative Exam Narrative: Pleasant gentleman in no acute distress Lungs: Clear to auscultation Cardiac exam: Regular rate and rhythm normal S1-S2 Abdomen: Soft and not Objective Labs Result Diagrams: 01/06/20 14:43 01/07/20 05:00 Labs: Laboratory Results - last 24 hr 01/06/20 01/06/20 01/07/20 17:23 17:23 05:00 Sodium Potassium Chloride Carbon Dioxide BUN Creatinine Estimated GFR BUN/Creatinine Ratio Glucose Calcium Triglycerides 82 Cholesterol 141 LDL Cholesterol, Calc 84 HDL Cholesterol 41 Urine RBC None seen Urine WBC None seen Ur Squamous Epith Cells 0-1 /hpf Amorphous Sediment 2+ Urine Bacteria None seen Ur Culture Indicated? Cult not indicated COVID-19 PCR Negative 01/07/20 05:00 Sodium 127 L Potassium 4.1 Chloride 95 L Carbon Dioxide 27 BUN 15 Creatinine 0.65 L Estimated GFR > 60.0 BUN/Creatinine Ratio 23.1 H Glucose 101 Calcium 8.8 Triglycerides Cholesterol LDL Cholesterol, Calc HDL Cholesterol Urine RBC Urine WBC Ur Squamous Epith Cells Amorphous Sediment Urine Bacteria Ur Culture Indicated? COVID-19 PCR Assessment & Plan Assessment & Plan narrative: Impression 1. Abrupt onset vertigo -question benign position over versus cerebellar infarct -await head MRI which will be obtained tomorrow -continue meclizine -fasting lipid profile obtained total cholesterol 141 -will defer echo unless MRI confirms stroke 2. 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 Hypertension -continue MONIQUE-inhibitor 4. BPH -continue tamsulosin Quality VTE Deep Vein Thrombosis/Pulmonary Embolism Present on Admission: No
[2020-01-07] MEDS: TAMSULOSIN 0.4 MG CAPSULE PO (20:48)
--- NOTE | 2020-01-08 | DI.MRI.S_ITS ---
PROCEDURE: MR STROKE Pre- and post-contrast brain MRI, non-contrast brain MR angiogram, pre- and postcontrast neck MR angiogram INDICATIONS: r/o cerebellar infarct. TECHNIQUE: Brain: Noncontrast axial T1 spin echo, axial T2 fast spin echo, sagittal and axial FLAIR, coronal T2 fast spin echo, axial gradient echo, axial diffusion and ADC through the brain. After the administration of contrast, axial 3D VIBE of the cranial vasculature and brain. Brain MRA: Non-contrast 3-D time of flight MR angiogram, with multiple rijkivy-zmmgnnztb-zmxbmikayd (MIP) reformats performed. Neck MRA: Axial and sagittal TruFISP through the neck. Coronal dynamic MR angiogram during administration of contrast in the arterial and venous phases, with 3-dimenstional cvegycw-yxjysywre-eqsauteiok (MIP) reformats constructed from subtraction images. COMPARISON: [facility], CT, CT HEAD/BRAIN WO CON, 01/06/2020, 14:29. FINDINGS: Image quality: Excellent. BRAIN: The ventricular system and cortical sulci demonstrate atrophy, consistent for the patient's stated age. There are areas of increased T2/FLAIR signal intensity within the periventricular and subcortical white matter. There is no acute intra-or extra axial fluid collection. No acute hemorrhage, mass lesion or midline shift. Brainstem is unremarkable. There are no areas of restricted diffusion. Globes are symmetrical. Sinuses are aerated. Osseous structures are intact. BRAIN MR ANGIOGRAM: Anterior circulation: Intracranial internal carotid arteries are normal in size and enhancement. The flow within the paired anterior cerebral arteries is normal and symmetric. The flow within the middle cerebral arteries is normal and symmetric. The anterior communicating artery is seen. No stenoses, occlusions, or aneurysms. Posterior circulation: The visualized portions of the vertebral arteries demonstrate normal caliber, and join to form a normal appearing basilar artery. The flow within the posterior cerebral arteries is normal and symmetric. No stenoses, occlusions, or aneurysms. NECK MR ANGIOGRAM: The origins of the left and right common, internal and external carotid arteries demonstrate no areas of hemodynamically significant stenosis, vascular occlusion or aneurysmal dilation. Origins of the left and right vertebral arteries demonstrate no areas of hemodynamically significant stenosis, vascular occlusion or aneurysmal dilation. Aortic arch demonstrates conventional anatomy. Limited, visualized portions of the subclavian vasculature are unremarkable. IMPRESSION: 1. No acute intracranial process. No changes of acute ischemia. 2. Moderate to severe atrophy and chronic microvascular ischemic changes. 3. No areas of hemodynamically significant stenosis, vascular occlusion or aneurysmal dilation within the anterior or posterior circulation. 4. No areas of hemodynamically significant stenosis, vascular occlusion or aneurysmal dilation within the neck vasculature. Dictated by: Leatha Munoz M.D. on 01/08/2020 at 11:57 Approved by: Leatha Munoz M.D. on 01/08/2020 at 12:02
[2020-01-08 04:58] VITALS: BP 149/82; PULSE 66; RESP 18; TEMP 36.8; O2SAT 96
[2020-01-08 08:19] VITALS: BP 163/97; PULSE 68; RESP 18; TEMP 36.4; O2SAT 95
[2020-01-08] MEDS: SODIUM CHLORIDE 0.9% FLUSH 10 ML IV (08:25)
[2020-01-08 08:27] VITALS: BP 163/97; PULSE 68
[2020-01-08] MEDS: LOSARTAN 50 MG TABLET 100 MG PO (08:27)
[2020-01-08] MEDS: FLUoxetine 20 MG CAPSULE 80 MG PO (08:28)
[2020-01-08] MEDS: ASPIRIN EC 81 MG TABLET PO (08:28)
[2020-01-08] MEDS: ENOXAPARIN 40 MG/0.4 ML SYRINGE SUBCUT (08:30)
--- NOTE | 2020-01-08 10:11 | PT.IPTN ---
Physical Therapy Treatment Note M2 PT-IP Current Condition Start: 01/07/20 10:17 Freq: NEEDED Status: Active Protocol: Document 01/07/20 10:18 AMH (Rec: 01/07/20 10:49 AMH [id number]) Physical Therapy Current Condition Current Condition Evaluation Date 01/07/20 Treatment Diagnosis Dizzyness, vertigo Onset Date 01/04/20 during a massage Weight Bearing Status Weight Bearing Status Full Weight Bearing M3 PT-IP Subjective Start: 01/07/20 10:17 Freq: NEEDED Status: Active Protocol: Document 01/08/20 09:55 CLB (Rec: 01/08/20 12:06 CLB [id number]) Subjective Physical Therapy Visit Type Type Treatment Note Visit Start Time 09:55 Visit Stop Time 10:11 Total Visit Minutes 16 Notes OT present for tx. Physical Therapy Visit Comments Patient Comments Pt agreeable to participate with therapy. Therapy Pain Assessment Pain Present Pain Present Denied Pain M4 PT-IP Mobility and Gait Start: 01/07/20 10:17 Freq: NEEDED Status: Active Protocol: Document 01/08/20 09:55 CLB (Rec: 01/08/20 12:06 CLB [id number]) PT-Bed Mobility Assessment Rolling Level of Assist Independent Supine to Sit Supine to Sit Independent Sit to Supine Sit to Supine Independent Scooting Scooting to Edge of Bed Independent PT-Transfer Assessment Sit to and From Stand Sit to and from Stand Standby Assistance,Contact Guard Assistance Equipment Transfer Assistive Device Gait Belt Orthotic/Prosthetic Devices or Brace: No Transfers Transfer Destination Chair,Toilet Transfer Ability Level of Assist Standby Assistance,Contact Guard Assistance Comments Mobility Comments Pt is independent with all bed mobility and CGA for standing , pt stated he had slight dizziness with standing that remained throughout treat. Pt ambulated to BR, sat on toilet to urinate. Pt then stood and ambulated to sink to wash hands requiring SBA for standing balance at counter. Pt then ambulated in vidal CGA ~75ft w/o AD. Pt returned to room sitting in chair as Dr. English present for rounds. Gait Assessment Gait Gait Assistance Required: Standby Assistance,Contact Guard Assist Distance (Feet) 75 Able to Maintain Weight Bearing Status Yes During Gait Assistive Devices Assistive Device Gait Belt Orthotic/Prosthetic Devices or Brace: No Gait Deviations General Gait Pattern Within Normal Limits Comments Gait Comments Pt with slight dizziness in standing requiring SBA-CGA for gait. M5 PT-IP Objective Assessments Start: 01/07/20 10:17 Freq: NEEDED Status: Active Protocol: Document 01/07/20 10:18 AMH (Rec: 01/07/20 10:49 AMH [id number]) Orientation Orientation/Cognition Level of Alertness Alert Language Function Ability No Deficits Noted Memory Description No Deficits Noted Gross Range of Motion Upper Extremity ROM Assessment Within Functional Limits Lower Extremity ROM Assessment Within Functional Limits Impairments history of B hip replacement Strength Upper Extremity Strength Assessment Within Functional Limits Lower Extremity Strength Assessment Within Functional Limits Comments Strength Comments Right knee extension and quad strength 4/5 Coordination Assessment Gross Coordination Gross Coordination WNL Sensation Assessment Sensation Gross Sensation WNL Muscle Tone Muscle Tone WNL Yes M7 PT-IP Assessment and Plan Start: 01/07/20 10:17 Freq: NEEDED Status: Active Protocol: Document 01/08/20 09:55 CLB (Rec: 01/08/20 12:06 CLB [id number]) PT Summary Assessment and Plan Potential Rehabilitation Potential Good Status of Condition at Evaluation Evolving Summary Impairments Activity Tolerance Assessment Summary Pt BP in supine 182/98, second BP in supine 174/92, BP in standing after activity 166/93 . Pt is independent for bed mobility and SBA-CGA for transfers and gait. Goals Bed Mobility Goal Independent Gait Goal Independent Frequency of Treatment Frequency Of Treatment Once a Day Treatment Plan Physical Therapy Treatment Plan Gait Training,Balance Retraining Recommendations To Nursing Amount of Assist Needed Standby Assistance Discharge Recommendations PT Discharge Recommendations Home Transportation Needs at Discharge Private Vehicle
--- NOTE | 2020-01-08 10:19 | OT.IP.EVAL ---
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) Depression (Chronic Unknown) FH: bilateral hip replacements (Acute) Low back pain (Acute) Obesity (BMI 30-39.9) (Acute) Osteoarthritis (Chronic Unknown) Sleep apnea (Chronic Unknown) Syncope and collapse (Acute) Weight loss counseling, encounter for (Acute) Surgical History (Last Reviewed 01/06/20 @ 18:37 by Maren English MD) History of tonsillectomy Status post appendectomy Status post hernia repair Occupational Therapy Inpatient Evaluation/Re-Eval M1 PT/OT-IP Prior Functional Status Start: 01/07/20 10:17 Freq: NEEDED Status: Active Protocol: Document 01/08/20 11:29 CGR (Rec: 01/08/20 11:38 CGR [email or web address]) Medical Review Prior Functional Status Medical History Reviewed Yes Diet/Fluid Consistency Regular Communication Pt is an effective verbal communicator. Mobility and Gait pt ambulates independently without assistive device Activities of Daily Living and IADL's Ind for all ADL's Social History Household Members spouse Living Arrangements House Number of Floors (Floors) Two Floors Number of Stairs To Enter/Railing? 3 steps with no rails. can stay on entry tech. Home Environment High Toilet,Walk in Shower Home Equipment Hand Held Shower,Grab Bars Near Toilet,Grab Bars In Shower Employment Status Retired M2 OT-IP Current Condition Start: 01/08/20 11:28 Freq: Status: Active Protocol: Document 01/08/20 11:29 CGR (Rec: 01/08/20 11:38 CGR [email or web address]) Occupational Therapy Current Condition Current Condition Evaluation Date 01/08/20 Treatment Diagnosis dizziness, rule out posterior circulation CVA vs vertigo Diagnosis Onset Date 01/06/20 M3 OT- IP Subjective and Pain Start: 01/08/20 11:28 Freq: Status: Active Protocol: Document 01/08/20 11:29 CGR (Rec: 01/08/20 11:38 CGR [email or web address]) OT- Subjective Occupational Therapy Visit Type Type Initial Evaluation Visit Start Time 09:52 Visit Stop Time 10:19 Total Visit Minutes 27 Notes Partial co-treat with P.T. Occupational Therapy Visit Comments Patient Comments I feel fine except for the dizziness OT Pain Assessment Pain When Pain Assessed At Rest Pain Present Pain Present Denied Pain M4 OT- IP ADL's Start: 01/08/20 11:28 Freq: Status: Active Protocol: Document 01/08/20 11:29 CGR (Rec: 01/08/20 11:38 CGR [email or web address]) OT [id number] Comments OT Self-Feeding Comments not meal time OT ADL-Grooming General Evaluation Grooming Ability Independent Comments OT Grooming Comments washign hands at sink OT ADL-Oral Care Comments Oral Care Comments not performed OT ADL-Dressing General Eval Lower Body Dressing Ability Independent Areas Needing Assistance Socks OT ADL-Toileting General Evaluation Toileting Ability Independent Comments OT Toileting Comments seated on toielt OT ADL-Bathing Bathing Type Bathing Type Shower General Evaluation Bathing Ability Independent Devices Bathing Equipment Hand Held Shower Sprayer, Shower Chair with Arms Comments OT Bathing Comments Pt started on shower then left with nursing as pt was performing with IND. Pt agreeable. M5 OT- IP IADL's Start: 01/08/20 11:28 Freq: Status: Active Protocol: Document 01/08/20 11:29 CGR (Rec: 01/08/20 11:38 CGR [email or web address]) OT-Instrumental Activities of Daily Living Deficits IADL Deficits Identified No Deficits Home Safety Awareness Awareness of Need for Assistance at Home Good Awareness Ability to Problem Solve Emergency Able to Problem Solve Situations Medication Management Medication Management No Deficits Identified Money Management Money Management No Deficits Identified Meal Preparation Meal Preparation No Deficits Identified Spray Operator Spray Operator No Deficits Identified Driving Driving Comments Pt understand that he should not be driving given his dizziness. M6 OT- IP Functional Cognition Start: 01/08/20 11:28 Freq: Status: Active Protocol: Document 01/08/20 11:29 CGR (Rec: 01/08/20 11:38 CGR [email or web address]) Cognitive Factors Limiting Selfcare Function Cognitive Ability Level of Alertness Alert Patient Orientation Name,Age,Birthday,Month,Date, Year,Day of Week,Place, Situation Attention Span Ability Capable of Focused Attention, Capable of Sustained Attention Ability to Follow Commands Able to Follow Multi-Step Commands Memory Description No Deficits Noted Safety Awareness No Deficits Noted OT- Vision and Hearing OT- Hearing Assessment OT- Hearing Assessment WFL OT- Vision Assessment Visual Acuity Glasses All The Time Visual Attentiveness WFL Occular Pursuits WFL Visual Convergence WFL Vision Assessment Comments Pt wears bifocals M7 OT- IP Mobility and Balance Start: 01/08/20 11:28 Freq: Status: Active Protocol: Document 01/08/20 11:29 CGR (Rec: 01/08/20 11:38 CGR [email or web address]) OT- Bed Mobility Assessment Rolling Type of Rolling Roll to Left Level of Assistance Independent Supine to Sit Supine to Sit Assist Independent Scooting Scooting to Edge of Bed Independent OT-Transfer Assessment Sit to and From Stand Sit to and from Stand Standby Assistance,Contact Guard Assistance Transfers Transfer Ability Standby Assistance,Contact Guard Assistance Technique Transfer Destination Bed,Chair,Shower Stall,Toilet Transfer Technique Stand Step Pivot Devices Transfer Assistive Devices Gait Belt OT- Balance Assessment Sitting Balance and Reactions Static Sitting Balance Ability Normal Dynamic Sitting Balance Ability Normal M8 OT- IP Objective Assessments Start: 01/08/20 11:28 Freq: Status: Active Protocol: Document 01/08/20 11:29 CGR (Rec: 01/08/20 11:38 CGR [email or web address]) OT Gross Range of Motion Upper Extremity Range of Motion Assessment Within Functional Limits OT Strength Upper Extremity Strength Assessment Within Functional Limits Comments Strength Comments 4+/5 OT- Coordination Assessment Upper Extremity Finger to Nose Test Within Functional Limits Finger Tapping Test Within Functional Limits OT-Muscle Tone Assessment Muscle Tone WNL Yes OT Sensation Assessment Edema Edema Absent M9 OT- IP Assessment and Plan Start: 01/08/20 11:28 Freq: Status: Active Protocol: Document 01/08/20 11:29 CGR (Rec: 01/08/20 11:38 CGR [email or web address]) OT Summary Assessment and Plan Potential Rehabilitation Potential Excellent Analytic Complexity at Evaluation Low Summary OT Impairments Balance,Functional Mobility Progress Towards Goals Progressing Toward Goals Assessment Summary Pt presents as a low complexity evaluation with dizziness. Pt is awaiting MRI to rule out posterior CVA. Pt is IND for ADLs and CGA to SBA for mobility d/t dizziness. Will defer functional mobility to P.T. at this time. No further OT needs. Frequency of Treatment Frequency Of Treatment Discharge Discharge Recommendations OT Discharge Recommendations Home Other Discharge Recommendations No drivign till dizziness has resolved. Transportation Needs at Discharge Private Vehicle
[2020-01-08] MEDS: MECLIZINE HCL 12.5 MG TABLET 25 MG PO (10:21)
--- NOTE | 2020-01-08 13:02 | CM.DPC ---
DCP Discharge Home Per MD, pt had MRI today around 1030 to rule out stroke vs positional vertigo and MRI results showed no sign of CVA and therefore pt medically stable to d/c home with spouse today and outpt follow up with ENT clinic towards outpt PT for vertigo. Per PT/OT, pt tolerated ADL's and ambulation well with some residual dizziness and recommending safe d/c home with spouse. SW met bedside with pt and he is relieved that MRI did not show CVA and agreeable with d/c home with spouse today and outpt follow up. Plan: Patient to d/c home later today via spouse POV and no SW needs at this time. LANIE Payton
--- NOTE | 2020-01-08 14:13 | PC.NURSE ---
Discharge: IV dc'd intact. Tele dc'd. Reviewed all d/c info thoroughly with patient. 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 He plans to make f/u with PCP [facility], and plans to ask PCP for referral to PT. Reviewed s/sx stroke/TIA, instructed to call 911 with any of them. Patient verbalized understanding of d/c info and stated no further questions. All belongings sent with patient at d/c. Ambulating indep at d/c, gait steady, reported vertigo sx tolerable. Wheeled out to private vehicle by this advertising copywriter.
--- NOTE | 2020-01-08 14:38 | PM.DS.1 ---
History of Present Illness History of Present Illness Chief complaint: Dizzy and Falling Narrative: The patient is a 74-year-old male with a history of hypertension, chronic hyponatremia, obesity, depression, benign prostatic hypertrophy who was in his usual state of health until . The patient was getting massage rolled over and developed abrupt onset of vertigo. Describes the room is spinning feeling dizzy. That seemed to resolve. The patient got up to go to the restroom on Wednesday morning and fell on the ground because of severe dizziness. He had no numbness tingling shortness of breath with that no nausea or vomiting with that. Patient presented to the emergency room for evaluation as he had had 2 episodes of severe vertigo. In the emergency room he underwent a head CT which was negative. When transferring from the chair to the CT table the patient had another episode of severe vertigo. The room was actually spinning. He had some dizziness associated. That quickly resolved. He denies any slurring of his speech and he weakness of his arms or legs any headache any blurred vision or double vision. Patient has had no prior episodes of incidence like this. Given the severity of the vertigo the patient is admitted to the hospital for further evaluation. Discharge Providers Provider Date of admission: 01/06/20 17:09 Discharge Date: 01/08/20 Primary care physician: Christopher Pryor DO Consults: 01/06/20 18:31 Consult to Discharge Planning Routine Comment: Consult to Occupational Therapy Evaluate & Treat Comment: Physician Instructions: Evaluate and treat Consult to Physical Therapy Evaluate & Treat Comment: Physician Instructions: Evaluate and Treat Consult to Speech Therapy Evaluate & Treat Comment: Physician Instructions: Evaluate and treat Discharge provider: Maren English MD Summary Hospital Course Discharge Diagnosis: 1. Vertigo 2. Probable benign positional vertigo 3. Hypertension 4. BPH 5. Depression Hospital Course: Patient was admitted to the [facility] for abrupt onset of vertigo. He underwent a head CT which was negative. The patient ultimately had a MRI of the brain which showed no evidence of an acute stroke. He was started on meclizine which helped his symptoms somewhat. He continues to have vertigo although minimally compared to prior to admission patient was hypertensive throughout the hospital stay. Amlodipine 5 mg was added to his regimen and the patient was deemed appropriate for did after evaluation by physical therapy and discharged home. Plans for follow-up care the patient will follow-up with his primary care physician Dr. Ross. He has been asked to be referred to outpatient physical therapy for vestibular training. Patient will obtain a blood pressure cuff at home and follow-up with Dr. Ross regarding hypertension as well. Status at Discharge Cognitive/behavioral status at discharge: oriented Functional status at discharge: independent ambulation Overall status at discharge: patient is not back to baseline Time Spent with Patient Time spent: Less than 30 minutes Exam Vital Signs (past 8 hours): - 01/08/20 08:19 01/08/20 08:27 Temperature 97.5 F L Pulse Rate 68 68 Respiratory Rate 18 Blood Pressure 163/97 H 163/97 H Pulse Oximetry 95 Oxygen Delivery Method Room Air Oxygen Flow Rate 0 Narrative Exam Narrative: Pleasant gentleman in no acute distress Lungs: Clear to auscultation Cardiac exam: Regular rate rhythm normal S1-S2 Abdomen: Soft nontender Extremities: No edema Objective Labs Result Diagrams: 01/06/20 14:43 01/07/20 05:00 Discharge Assessment & Plan Assessment and Plan Assessment: 1. Benign positional vertigo 2. Hypertension Plan of Treatment: 1. Add amlodipine 5 mg daily to blood pressure regimen To meclizine as needed for dizziness Three outpatient physical therapy appointment for vestibular training. Discharge Plan Discharge Plan Patient Disposition: Home Discharge orders & Medications Prescriptions: New meclizine 12.5 mg Tablet 25 mg PO TID PRN (Reason: Vertigo) Qty: 30 RF: 0 amlodipine 5 mg tablet 5 mg PO DAILY Qty: 30 RF: 0 Continued tamsulosin [Flomax] 0.4 mg capsule 0.4 mg PO QDAY Qty: 90 RF: 0 fluoxetine [Prozac] 20 mg capsule 80 mg PO DAILY RF: 0 losartan [Cozaar] 100 mg tablet 100 mg PO DAILY RF: 0 Follow up/Referrals: Christopher Pryor DO [Primary Care Provider] - Discharge Health Status Multidrug resistant organism: No MDRO Diet/Activity/Treatments Diet: Low-sodium Visit Report/Discharge Packet Instructions: DI for Vertigo, How to Prevent Falls, Meclizine Visit Report Forms: Patient Portal/API, Stroke Signs & Symptoms Discharge Data Primary Care Provider: Christopher Pryor Attending Provider: Maren English Admit Date/Time: 01/06/20 17:09 Discharges patient from system. Discharge Date/Time: 01/08/20 14:19 Quality VTE Deep Vein Thrombosis/Pulmonary Embolism Present on Admission: No
== END 2020-01-08 14:19 | disposition home or self-care (01) ==
LOC: ED 15:29 → AC 17:10
PROVIDERS: Admitting Provider Internal Medicine; Emergency Provider Emergency Medicine; PCP Family Medicine; Referring Provider Emergency Medicine; Visit Provider Internal Medicine
DX: R42 Dizziness and giddiness (principal); Z87.891 Personal history of nicotine dependence; I10 Essential (primary) hypertension; Z11.59 Encounter for screening for other viral diseases; F32.9 Major depressive disorder, single episode, unspecified; N40.0 Benign prostatic hyperplasia without lower urinary tract symptoms
CPT/HCPCS: 36415; 70450; 70548; 70553; 80048; 80061; 81003; 81015; 82550; 83880; 84484; 85025; 87635; 93005; 96372; 97116; 97161; 97165; 97535; 99284; G0378; J1650

== ENCOUNTER → 2020-08-10 09:59 | Outpatient (CLI) | payer MEDICARE, SELFPAY ==
[2020-08-10 10:55] LABS: COVID19 -Nasal RAPID Negative (Negative)
== END ==
PROVIDERS: PCP Family Medicine; Visit Provider Physician Assistant
DX: Z20.822 Contact with and (suspected) exposure to COVID-19
CPT/HCPCS: 87635; C9803

== ENCOUNTER 2020-08-13 07:27 | Day surgery (SDC) | payer MEDICARE, SELFPAY ==
[2020-08-13] MEDS: CATARACT EYE COMPOUND (10 DROPS/SYRINGE) 3 DROPS EYE-OP (07:53)
[2020-08-13] MEDS: PROPARACAINE 0.5% OPHTH SOL 2 DROPS EYE-OP (07:53)
[2020-08-13 07:59] VITALS: BP 131/77; PULSE 67; RESP 16; TEMP 36.4; O2SAT 97; BMI 33.4
--- NOTE | 2020-08-13 09:03 | PM.PREOP ---
Pre-operative Note Interval Note History & Physical reviewed/Exam performed by Physician: Yes Changes to H&P: No
--- NOTE | 2020-08-13 09:03 | PM.OP.1 ---
Operative Date/Time/Diagnoses Pre-op diagnosis: Nuclear cataract right eye Procedure & Clinicians Procedure: Cataract Surgery Same procedure as scheduled: Yes Surgeon: Kana Garcia Anesthesia Type: MAC +/- and Sedation Operative Notes Procedure in detail: Patient brought to the operating suite. Tetracaine drops placed in the right eye. Patient was prepped and draped in sterile manner. Wire lid speculum was placed in the eye. Betadine drops were placed on the eye. This was irrigated. Lidocaine jelly was placed on the eye. A paracentesis port was created with a side-port blade. 0.1 mL 1% preservative free lidocaine was injected into the anterior chamber. The anterior chamber was deepened with viscoelastic. 2.6 mm keratome was used to create a temporal clear corneal incision. Cystotome and Utrata forceps were used to create continuous tear capsulorrhexis. Balanced salt solution was used to hydro dissect the nucleus. The phacoemulsification handpiece was inserted and the nucleus was removed using the stop and chop technique. The pupil was floppy and miotic. The irrigation aspiration handpiece was inserted and the remaining cortex was removed. Anterior chamber was deepened with viscoelastic. An Dugan DIB00 intraocular lens with a power of 24.0 was injected into the capsular bag. Irrigation aspiration handpiece was inserted and the remaining viscoelastic was removed. Incision was hydrated with balanced salt solution and found to be leak free with pressure with Weck-Graciela sponges. 0.1 mL Vigamox injected anterior chamber. 0.3 mL Kenalog 10 mg was injected subconjunctivally. Lid speculum was removed. The patient left the operating room in excellent condition. Complications: none Post-operative Condition: stable Disposition: same day surgery
[2020-08-13] MEDS: PHENYLEPHRINE/LIDOCAINE VIAL (OR) 0.2 ML EYE-OP (09:25)
[2020-08-13] MEDS: LIDOCAINE 2% (GLYDO) 6 ML GEL TOP (09:26)
[2020-08-13] MEDS: MOXIFLOXACIN INJ 4 MG/0.8 ML VIAL 0.5 MG EYE-OP (09:26)
[2020-08-13] MEDS: TRIAMCINOLONE 50 MG/5 ML VIAL INJ (09:26)
[2020-08-13] MEDS: TETRACAINE 0.5% OPHTH DROPS 4 ML 2 DROPS EYE-OP (09:26)
[2020-08-13] MEDS: BALANCED SALT IRRIG SOLN NO.2 500 ML, EPINEPHrine 1 MG IRR (09:27)
[2020-08-13 09:44] VITALS: BP 151/76; PULSE 56; RESP 16; TEMP 36.6; O2SAT 99
--- NOTE | 2020-08-13 10:10 | SUR.PHASEII ---
Pt left when ready and left in stable condition.
== END 2020-08-13 09:45 | disposition home or self-care (01) ==
PROVIDERS: PCP Family Medicine; Referring Provider Family Medicine; Visit Provider Ophthalmology
PROC: (CPT 66984; principal; 2020-08-13 09:15)
DX: H25.11 Age-related nuclear cataract, right eye (principal); F32.9 Major depressive disorder, single episode, unspecified
CPT/HCPCS: 66984; J0171; J2250; J3301

== ENCOUNTER → 2020-08-31 10:38 | Outpatient (CLI) | payer MEDICARE, SELFPAY ==
[2020-08-31 12:12] LABS: COVID19 -Nasal RAPID Negative (Negative)
== END ==
PROVIDERS: PCP Family Medicine; Referring Provider Student in an Organized Health Care Education/Training Program; Visit Provider Student in an Organized Health Care Education/Training Program
DX: Z01.812 Encounter for preprocedural laboratory examination (principal); Z20.822 Contact with and (suspected) exposure to COVID-19
CPT/HCPCS: 87635

== ENCOUNTER → 2020-08-31 10:53 | Outpatient (CLI) | payer MEDICARE, SELFPAY ==
--- NOTE | 2020-08-31 10:55 | DI.RAD.S_ITS ---
PROCEDURE: XR RIBS LT MIN 3V W CXR1V INDICATIONS: fall, L rib pain T4-6 anterolateral TECHNIQUE: 2 views of the left ribs were acquired, along with a single view chest. COMPARISON: [facility], CR, CHEST 2 VIEW, 07/22/2017, 19:06. [facility], CR, XR CHEST 2 VIEWS, 07/17/2017, 16:12. FINDINGS: Surgical changes and devices: None. Bones and chest wall: No fractures or dislocations. No suspicious bony lesions. Overlying soft tissues appear unremarkable. Age-appropriate bony degenerative changes are seen. Lungs and pleura: No pleural effusions or pneumothorax. Lungs appear clear. Mediastinum: The cardiac contours are within normal limits. The aorta demonstrates calcification and tortuosity. IMPRESSION: No definite, displaced rib fractures are seen. No pneumothorax. Dictated by: Koko Palma M.D. on 08/31/2020 at 10:23 Approved by: Koko Palma M.D. on 08/31/2020 at 10:25
== END ==
PROVIDERS: PCP Family Medicine; Referring Provider Student in an Organized Health Care Education/Training Program; Visit Provider Student in an Organized Health Care Education/Training Program
DX: Z01.812 Encounter for preprocedural laboratory examination (principal); Z20.822 Contact with and (suspected) exposure to COVID-19; R07.81 Pleurodynia
CPT/HCPCS: 71101; 87635

== ENCOUNTER 2020-09-03 06:30 | Day surgery (SDC) | payer MEDICARE, SELFPAY ==
[2020-09-03 06:56] VITALS: BP 136/79; PULSE 65; RESP 18; TEMP 36.6; O2SAT 97; BMI 32.6
[2020-09-03] MEDS: PROPARACAINE 0.5% OPHTH SOL 2 DROPS EYE-OP (07:07)
[2020-09-03] MEDS: CATARACT EYE COMPOUND (10 DROPS/SYRINGE) 3 DROPS EYE-OP (07:07)
--- NOTE | 2020-09-03 07:27 | PM.PREOP ---
Pre-operative Note Interval Note History & Physical reviewed/Exam performed by Physician: Yes Changes to H&P: No
--- NOTE | 2020-09-03 07:27 | PM.OP.1 ---
Operative Date/Time/Diagnoses Pre-op diagnosis: Nuclear Cataract Left eye Post-op diagnosis: same Procedure & Clinicians Same procedure as scheduled: Yes Surgeon: Kana Garcia Anesthesia Type: MAC +/- and Sedation Operative Notes Procedure in detail: Patient brought to the operating suite. Tetracaine drops placed in the left eye. Patient was prepped and draped in sterile manner. Wire lid speculum was placed in the eye. Betadine drops were placed on the eye. This was irrigated. Lidocaine jelly was placed on the eye. A paracentesis port was created with a side-port blade. 0.1 mL 1% preservative free lidocaine was injected into the anterior chamber. The anterior chamber was deepened with viscoelastic. 2.6 mm keratome was used to create a temporal clear corneal incision. The iris was floppy and miotic. A 6.25mm malyugin ring was used to enlarge the pupile. Cystotome and Utrata forceps were used to create continuous tear capsulorrhexis. Balanced salt solution was used to hydro dissect the nucleus. The phacoemulsification handpiece was inserted and the nucleus was removed using the stop and chop technique. The irrigation aspiration handpiece was inserted and the remaining cortex was removed. Anterior chamber was deepened with viscoelastic. An Dugan DIB00 intraocular lens with a power of 24.0 was injected into the capsular bag. The malyugin ring was removed. Irrigation aspiration handpiece was inserted and the remaining viscoelastic was removed. Incision was hydrated with balanced salt solution and found to be leak free with pressure with Weck-Graciela sponges. 0.1 mL Vigamox injected anterior chamber. 0.3 mL Kenalog 10 mg was injected subconjunctivally. Lid speculum was removed. The patient left the operating room in excellent condition. Complications: none Post-operative Condition: stable Disposition: same day surgery
[2020-09-03] MEDS: CHONDROIDTIN/SOD HYALURONATE 1.05 ML SYRINGE INTRAOCULA (07:51)
[2020-09-03] MEDS: PHENYLEPHRINE/LIDOCAINE VIAL (OR) 0.2 ML EYE-OP (07:52)
[2020-09-03] MEDS: LIDOCAINE 2% (GLYDO) 6 ML GEL TOP (07:53)
[2020-09-03] MEDS: MOXIFLOXACIN INJ 4 MG/0.8 ML VIAL 0.5 MG EYE-OP (07:53)
[2020-09-03] MEDS: BALANCED SALT IRRIG SOLN NO.2 500 ML, EPINEPHrine 1 MG IRR (07:53)
[2020-09-03] MEDS: TETRACAINE 0.5% OPHTH DROPS 4 ML 2 DROPS EYE-OP (07:53)
[2020-09-03] MEDS: TRIAMCINOLONE 50 MG/5 ML VIAL INJ (07:54)
[2020-09-03 08:11] VITALS: BP 126/69; PULSE 64; RESP 16; TEMP 36.7; O2SAT 97
--- NOTE | 2020-09-03 08:29 | SUR.PHASEII ---
Pt ready to go, called, unable to pick pt up, pt kept till arrives.
--- NOTE | 2020-09-03 09:14 | SUR.PHASEII ---
0850: arrived, pt left in stable condition.
== END 2020-09-03 08:50 | disposition home or self-care (01) ==
PROVIDERS: PCP Family Medicine; Referring Provider Family Medicine; Visit Provider Ophthalmology
PROC: (CPT 66984; principal; 2020-09-03 07:45)
DX: H25.12 Age-related nuclear cataract, left eye (principal); F32.9 Major depressive disorder, single episode, unspecified; G47.33 Obstructive sleep apnea (adult) (pediatric); N40.0 Benign prostatic hyperplasia without lower urinary tract symptoms; Z79.83 Long term (current) use of bisphosphonates
CPT/HCPCS: 66984; J0171; J2250; J3301

== ENCOUNTER → 2020-09-10 11:35 | Outpatient (CLI) | payer MEDICARE, SELFPAY ==
--- NOTE | 2020-09-10 11:37 | DI.RAD.S_ITS ---
PROCEDURE: XR WRIST LT MIN 3V INDICATIONS: L- hand/ wrist pain TECHNIQUE: 4 views of the wrist were acquired. COMPARISON: [facility], [place], XR HAND LT MIN 3V, 09/10/2020, 11:39. [facility], [place], WRIST MINIMUM 3 VIEWS LEFT, 11/01/2012, 9:26. FINDINGS: Bones: Linear lucency at the radial styloid. No dislocations. No suspicious bony lesions. Scaphoid view: Intact. Soft tissues: No suspicious soft tissue calcifications. IMPRESSION: Concern for nondisplaced radial styloid fracture. Alternately, this could be a skin fold. Correlate for point tenderness. Follow-up radiographs in 10-14 days could be a full for further evaluation Dictated by: Silvano Mg M.D. on 09/10/2020 at 12:08 Approved by: Silvano Mg M.D. on 09/10/2020 at 12:11
--- NOTE | 2020-09-10 11:37 | DI.RAD.S_ITS ---
PROCEDURE: XR HAND LT MIN 3V INDICATIONS: L- hand/ wrist pain TECHNIQUE: 3 views of the hand(s) acquired. COMPARISON: [facility], CR, XR WRIST LT MIN 3V, 09/10/2020, 11:39. [facility], CR, HAND 3V LEFT, 11/01/2012, 9:30. FINDINGS: Bones: Linear lucency at the radial styloid. No dislocations. Carpal bones are normally aligned. No suspicious bony lesions. Soft tissues: No suspicious soft tissue calcifications. IMPRESSION: Possible radial styloid fracture. Correlate with point tenderness. Follow-up radiographs in 10-14 days could be helpful for further evaluation. Dictated by: Silvano Mg M.D. on 09/10/2020 at 12:11 Approved by: Silvano Mg M.D. on 09/10/2020 at 12:12
== END ==
PROVIDERS: PCP Family Medicine; Referring Provider Physician Assistant; Visit Provider Physician Assistant
DX: M25.532 Pain in left wrist (principal); M79.642 Pain in left hand
CPT/HCPCS: 73110; 73130

== ENCOUNTER → 2021-01-03 13:08 | Outpatient (CLI) | payer MEDICARE, SELFPAY ==
[2021-01-03 14:52] LABS: Prostate Specific Antigen 0.953 ng/mL (0.10-4.00)
== END ==
PROVIDERS: PCP Family Medicine; Referring Provider Specialist; Visit Provider Specialist
DX: N40.1 Benign prostatic hyperplasia with lower urinary tract symptoms (principal); N13.8 Other obstructive and reflux uropathy
CPT/HCPCS: 36415; 84153

== ENCOUNTER → 2021-01-11 08:58 | Outpatient (CLI) | payer MEDICARE, SELFPAY ==
[2021-01-11 10:27] LABS: Add Manual Diff / Slide Review NO; Basophils Absolute Auto 100 /uL (0-100); Basophils Percent Auto 3.2 % (0-2); Eosinophils Absolute Auto 300 /uL (0-450); Eosinophils Percent Auto 6.6 % (2-4); Hemoglobin 14.2 g/dL (13.5-17.5); Lymphocytes Absolute Auto 800 /uL (1100-4500); Lymphocytes Percent Auto 19.1 % (25-40); Mean Corpuscular HGB Conc 34.6 % (30-36); Mean Corpuscular Volume 95.4 fL (80-100); Monocytes Absolute Auto 500 /uL (0-900); Monocytes Percent Auto 13.3 % (3-14); Neutrophils Absolute Auto 2300 /uL (1500-7000); Neutrophils Percent Auto 57.8 % (50-75); Platelet Count 266 X10^3/uL (150-400); Red Cell Distribution Width 12.9 % (11.6-14.8)
[2021-01-11 10:39] LABS: Alanine Aminotransferase 19 IU/L (<50); Albumin 4.1 g/dL (3.5-5.0); Albumin Globulin Ratio 1.6 (1.0-2.8); Alkaline Phosphatase 71 U/L (38-126); Aspartate Aminotransferase 24 IU/L (17-59); BUN Creatinine Ratio 19.2 (6-22); Blood Urea Nitrogen 10 mg/dL (9-20); Carbon Dioxide 25 mmol/L (22-32); Chloride 97 mmol/L (98-107); Cholesterol 143 mg/dL (140-199); Estimated Glomerular Filt Rate > 60.0 mL/min (>60); Globulin 2.6 g/dL (1.7-4.1); Glucose 109 mg/dL (80-110); HDL Cholesterol 62 mg/dL (40-60); HEMOLYSIS < 15 (0-50); LDL Cholesterol Calculated 71 mg/dL (<100); Potassium 4.1 mmol/L (3.4-5.1); Sodium 128 mmol/L (137-145); Total Protein 6.7 g/dL (6.3-8.2); Triglycerides 52 mg/dL (35-150)
== END ==
PROVIDERS: PCP Family Medicine; Referring Provider Family Medicine; Visit Provider Family Medicine
DX: R32 Unspecified urinary incontinence (principal); Z12.5 Encounter for screening for malignant neoplasm of prostate
CPT/HCPCS: 36415; 80053; 80061; 85025; G0103

== ENCOUNTER 2021-03-18 13:45 | Outpatient (RCR) | payer MEDICARE, SELFPAY ==
--- NOTE | 2021-02-28 15:20 | PT.OIE ---
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 awareness Low back pain Nasal bleeding Obesity (BMI 30-39.9) Obstructive sleep apnea, adult Osteoarthritis (Unknown) Syncope and collapse Urinary incontinence Weight loss counseling, encounter for Past Surgical History (Last Reviewed 01/09/21 @ 16:12 by Gena Yu MD) History of hip replacement History of tonsillectomy Status post appendectomy Status post hernia repair Visit Care Team Role Provider Type Christopher Pryor DO Attending Provider Physician Family Provider Primary Care Provider Referring Provider Specialty: [facility] Address: [address] [place] [address] Email: Physical Therapy Initial Evaluation PT-OP-A Visit Information Start: 02/27/21 10:43 Freq: Status: Active Protocol: Document 02/28/21 11:15 AMB (Rec: 02/28/21 15:08 AMB [email or web address]) Out-Patient Physical Therapy Visit Information Visit Information Visit Type Initial Evaluation Visit Start Time 11:15 Visit Stop Time 12:00 Total Visit Minutes 45 Visit Number 1 PT-OP-B Current Condition Start: 02/27/21 10:43 Freq: Status: Active Protocol: Document 02/28/21 11:16 AMB (Rec: 02/28/21 11:41 AMB [id number]) Current Condition History of Current Condition Onset Date 8 months ago Current Complaints urinary leaking History of Current Condition 8 months ago leaking started, and has been staying the same since. Changes the thorpe once a day and they are damp. Can feel the leak happening, but hasn't found a pattern to when the leak happens. Does drink coffee and has been trying to drink more water as a part of a weight loss plan. Plays pickleball and isn't sure if that increaseses the leaking with activity. Long history of prostate hyperplasia that makes initiating the stream challenging. Prior Functional Status Baseline Function- ADL's Independent Baseline Function- Mobility Independent Current Functional Impairments (Reported) Functional Limitations- ADL's Nocturia, leaking- unsure when PT-OP-C Subjective Start: 02/27/21 10:43 Freq: Status: Active Protocol: Document 02/28/21 11:15 AMB (Rec: 02/28/21 15:08 AMB [email or web address]) Patient Questionnaires Pelvic Floor Distress Inventory Questionnaire (PFDI- SF20) Pelvic Floor Score 12 PT-OP-I Pelvic Floor Start: 02/27/21 10:43 Freq: Status: Active Protocol: Document 02/28/21 11:46 AMB (Rec: 02/28/21 12:03 AMB [id number]) Pelvic Floor Assessment SEMG (uV) Baseline 5 10 Second Contraction 9 Recruitment Pattern Fair Relaxation Fair Stability of Hold Poor/Slow PT-OP-Q Treatments Start: 02/27/21 10:43 Freq: Status: Active Protocol: Document 02/28/21 11:15 AMB (Rec: 02/28/21 15:08 AMB [email or web address]) Neuro Re-Education Treatment Other Activities 1 Details sEMG Comments long holds- cues needed to avoid using abdominal muscles PT-OP-T Assessment and Plan Start: 02/27/21 10:43 Freq: Status: Active Protocol: Document 02/28/21 11:15 AMB (Rec: 02/28/21 15:08 AMB [email or web address]) Physical Therapy Assessment Rehab Potential Rehabilitation Potential Good Evaluation Complexity Number of Personal Factors/Comorbidities 1-2 Number of Body Systems Impaired 1-2 Clinical Presentation at Evaluation Stable Impairments Impairments Functional Activities,Strength Goals Two Impairment Continence Short Term Goal (STG) Troy will be aware of when/ if he is leaking and be able to contract his pelvic floor during those times. STG Duration 4 weeks One Impairment Strength Short Term Goal (STG) Troy will contract his pelvic floor muscles for 10 seconds without compensating with his abdominal muscles. STG Duration 4 weeks Detention Goal (LTG) Troy will contract his pelvic floor muscles while moving from sit to stand. LTG Duration 8 weeks Assessment Summary Assessment Troy attends physical therapy with what he reports is constant leakage, but he wears one pad a day. He has not really found a pattern to his leaking, but does think sometimes he can feel it when he leaks. He does drink coffee and has increased his fluid consumption and thinks that has make the leaking slightly worse. On sEMG he did display poor strength and tended to over use his abdominal muscles. He was educated in urge reduction and pelvic floor strengthening and will benefit from further strengthening and behavior training. Physical Therapy Plan Frequency and Duration Frequency of Treatment 1x/Week Duration of Treatment 8 weeks Plan of Care Start Date 02/28/21 Plan of Care End Date 04/25/21 Therapeutic Interventions Therapeutic Interventions Home Exercise Program,Manual Therapy,Neuromuscular Re- education,Self-Care/Home Management,Therapeutic Activities,Therapeutic Exercises Modalities Biofeedback,Electric Stimulation Next Visit Focus/Plan Next Note Type Treatment Note Next Visit Plan Follow up on urge reduction techniques, bladder diary, quick flicks and long holds
--- NOTE | 2021-02-28 15:21 | PT.OPPOC ---
Addendum entered and electronically signed by Swapna Gay, KAY 02/28/21 15:22: Provider signature needed Original Note: Physical, Occupational & Speech Therapy At [facility] Current Diagnoses Incontinence without sensory awareness (02/28/21) Continuous leakage (02/28/21) Visit Care Team Role Provider Type Christopher Pryor DO Attending Provider Physician Family Provider Primary Care Provider Referring Provider Specialty: Family Practice Address: [address] [place] [address], [facility] Email: Plan Of Care PT-OP-T Assessment and Plan Start: 02/27/21 10:43 Freq: Status: Active Protocol: Document 02/28/21 11:15 AMB (Rec: 02/28/21 15:08 AMB [email or web address]) Physical Therapy Assessment Rehab Potential Rehabilitation Potential Good Evaluation Complexity Number of Personal Factors/Comorbidities 1-2 Number of Body Systems Impaired 1-2 Clinical Presentation at Evaluation Stable Impairments Impairments Functional Activities,Strength Goals Two Impairment Continence Short Term Goal (STG) Troy will be aware of when/ if he is leaking and be able to contract his pelvic floor during those times. STG Duration 4 weeks One Impairment Strength Short Term Goal (STG) Troy will contract his pelvic floor muscles for 10 seconds without compensating with his abdominal muscles. STG Duration 4 weeks Alf Goal (LTG) Troy will contract his pelvic floor muscles while moving from sit to stand. LTG Duration 8 weeks Assessment Summary Assessment Troy attends physical therapy with what he reports is constant leakage, but he wears one pad a day. He has not really found a pattern to his leaking, but does think sometimes he can feel it when he leaks. He does drink coffee and has increased his fluid consumption and thinks that has make the leaking slightly worse. On sEMG he did display poor strength and tended to over use his abdominal muscles. He was educated in urge reduction and pelvic floor strengthening and will benefit from further strengthening and behavior training. Physical Therapy Plan Frequency and Duration Frequency of Treatment 1x/Week Duration of Treatment 8 weeks Plan of Care Start Date 02/28/21 Plan of Care End Date 04/25/21 Therapeutic Interventions Therapeutic Interventions Home Exercise Program,Manual Therapy,Neuromuscular Re- education,Self-Care/Home Management,Therapeutic Activities,Therapeutic Exercises Modalities Biofeedback,Electric Stimulation Next Visit Focus/Plan Next Note Type Treatment Note Next Visit Plan Follow up on urge reduction techniques, bladder diary, quick flicks and long holds Plan of Care Dates Plan of Care Start Date 02/28/21 Plan of Care End Date 04/25/21 Electronically Signed by: Swapna Gay, PT 02/28/21 4601 Please Sign and Return: I have reviewed this Plan of Care and certify that the skilled therapy services above are required to meet the patient?s needs. Physician Signature Date Printed Name and Credentials Clinical Instructor Signature Printed Name and Credentials
--- NOTE | 2021-03-14 11:55 | PT.OTN ---
Current Diagnoses Incontinence without sensory awareness (03/14/21) Continuous leakage (03/14/21) Physical Therapy Treatment Note PT-OP-A Visit Information Start: 02/27/21 10:43 Freq: Status: Active Protocol: Document 03/14/21 07:30 AMB (Rec: 03/14/21 08:12 AMB [id number]) Out-Patient Physical Therapy Visit Information Visit Information Visit Type Treatment Note Visit Start Time 07:30 Visit Stop Time 08:15 Total Visit Minutes 45 Visit Number 2 PT-OP-B Current Condition Start: 02/27/21 10:43 Freq: Status: Active Protocol: Document 02/28/21 11:16 AMB (Rec: 02/28/21 11:41 AMB [id number]) Current Condition History of Current Condition Onset Date 8 months ago Current Complaints urinary leaking History of Current Condition 8 months ago leaking started, and has been staying the same since. Changes the thorpe once a day and they are damp. Can feel the leak happening, but hasn't found a pattern to when the leak happens. Does drink coffee and has been trying to drink more water as a part of a weight loss plan. Plays pickleball and isn't sure if that increaseses the leaking with activity. Long history of prostate hyperplasia that makes initiating the stream challenging. Prior Functional Status Baseline Function- ADL's Independent Baseline Function- Mobility Independent Current Functional Impairments (Reported) Functional Limitations- ADL's Nocturia, leaking- unsure when PT-OP-C Subjective Start: 02/27/21 10:43 Freq: Status: Active Protocol: Document 03/14/21 07:30 AMB (Rec: 03/14/21 08:12 AMB [id number]) OP-PT Subjective Patient Comments Patient Comments Taking new med which is really helpful. PT-OP-I Pelvic Floor Start: 02/27/21 10:43 Freq: Status: Active Protocol: Document 02/28/21 11:46 AMB (Rec: 02/28/21 12:03 AMB [id number]) Pelvic Floor Assessment SEMG (uV) Baseline 5 10 Second Contraction 9 Recruitment Pattern Fair Relaxation Fair Stability of Hold Poor/Slow PT-OP-Q Treatments Start: 02/27/21 10:43 Freq: Status: Active Protocol: Document 03/14/21 07:30 AMB (Rec: 03/14/21 11:55 AMB [email or web address]) Therapeutic Exercises Sitting Exercises 1 Sitting Exercise Name roll in roll out Resistance #3 tband Reps/Minutes 2x10 Comments with PF stabilization PT-OP-T Assessment and Plan Start: 02/27/21 10:43 Freq: Status: Active Protocol: Document 03/14/21 07:30 AMB (Rec: 03/14/21 11:55 AMB [email or web address]) Physical Therapy Assessment Goals Two Impairment Continence Short Term Goal (STG) Troy will be aware of when/ if he is leaking and be able to contract his pelvic floor during those times. STG Duration 4 weeks One Impairment Strength Short Term Goal (STG) Troy will contract his pelvic floor muscles for 10 seconds without compensating with his abdominal muscles. STG Duration 4 weeks Utility Worker Driver Goal (LTG) Troy will contract his pelvic floor muscles while moving from sit to stand. LTG Duration 8 weeks Assessment Summary Assessment Troy attends with improvement in sx more due to new medication than exercise, but overall doing considerably better, he is going to work on being more aware of when leaking happens. He is also going to work on longer hold as his muscles fatigue quickly with those. Physical Therapy Plan Next Visit Focus/Plan Next Note Type Treatment Note Next Visit Plan Follow up on urge reduction techniques, bladder diary, quick flicks and long holds
--- NOTE | 2021-03-18 15:06 | PT.OTN ---
Current Diagnoses Incontinence without sensory awareness (03/18/21) Continuous leakage (03/18/21) Physical Therapy Treatment Note PT-OP-A Visit Information Start: 02/27/21 10:43 Freq: Status: Active Protocol: Document 03/18/21 13:51 AMB (Rec: 03/18/21 13:56 AMB [id number]) Out-Patient Physical Therapy Visit Information Visit Information Visit Type Treatment Note Visit Start Time 13:45 Visit Stop Time 14:30 Total Visit Minutes 45 Visit Number 3 PT-OP-B Current Condition Start: 02/27/21 10:43 Freq: Status: Active Protocol: Document 02/28/21 11:16 AMB (Rec: 02/28/21 11:41 AMB [id number]) Current Condition History of Current Condition Onset Date 8 months ago Current Complaints urinary leaking History of Current Condition 8 months ago leaking started, and has been staying the same since. Changes the thorpe once a day and they are damp. Can feel the leak happening, but hasn't found a pattern to when the leak happens. Does drink coffee and has been trying to drink more water as a part of a weight loss plan. Plays pickleball and isn't sure if that increaseses the leaking with activity. Long history of prostate hyperplasia that makes initiating the stream challenging. Prior Functional Status Baseline Function- ADL's Independent Baseline Function- Mobility Independent Current Functional Impairments (Reported) Functional Limitations- ADL's Nocturia, leaking- unsure when PT-OP-C Subjective Start: 02/27/21 10:43 Freq: Status: Active Protocol: Document 03/18/21 13:51 AMB (Rec: 03/18/21 13:56 AMB [id number]) OP-PT Subjective Patient Comments Patient Comments Was able to go through the night without waking. PT-OP-I Pelvic Floor Start: 02/27/21 10:43 Freq: Status: Active Protocol: Document 02/28/21 11:46 AMB (Rec: 02/28/21 12:03 AMB [id number]) Pelvic Floor Assessment SEMG (uV) Baseline 5 10 Second Contraction 9 Recruitment Pattern Fair Relaxation Fair Stability of Hold Poor/Slow PT-OP-Q Treatments Start: 02/27/21 10:43 Freq: Status: Active Protocol: Document 03/18/21 13:45 AMB (Rec: 03/18/21 15:06 AMB [email or web address]) Therapeutic Exercises Sitting Exercises 1 Sitting Exercise Name roll in roll out Resistance #3 tband Reps/Minutes 2x10 Comments with PF stabilization Standing Exercises 2 Standing Exercise Name mini lunges Reps/Minutes 2x10 1 Standing Exercise Name sit to stand Reps/Minutes 2x10 Comments with PF PT-OP-T Assessment and Plan Start: 03/18/21 13:56 Freq: Status: Active Protocol: Document 03/18/21 13:57 AMB (Rec: 03/18/21 14:07 AMB [id number]) Physical Therapy Assessment Goals Two Impairment Continence Short Term Goal (STG) Troy will be aware of when/ if he is leaking and be able to contract his pelvic floor during those times. STG Duration 4 weeks One Impairment Strength Short Term Goal (STG) Troy will contract his pelvic floor muscles for 10 seconds without compensating with his abdominal muscles. STG Duration 4 weeks Penitentiary Goal (LTG) Troy will contract his pelvic floor muscles while moving from sit to stand. LTG Duration 8 weeks Assessment Summary Assessment Troy is doing well with his goals, but this improvement has only been for 4 days so he is hesitant to be done with PT now, as he is worried sx might return. So reviewed HEP , and pt will cancel next week if he is doing well, and keep appt if he is having issues. Physical Therapy Plan Next Visit Focus/Plan Next Visit Plan d/c vs continue
--- NOTE | 2021-04-15 09:34 | PT.OPDS ---
Current Diagnoses Incontinence without sensory awareness (03/18/21) Continuous leakage (03/18/21) Visit Care Team Role Provider Type Christopher Pryor DO Attending Provider Physician Family Provider Primary Care Provider Referring Provider Specialty: Family Practice Address: [address] [place] [address], [facility] Email: Visit Number Visit Number 3 Discharge Summary PT-OP-B Current Condition Start: 02/27/21 10:43 Freq: Status: Active Protocol: Document 02/28/21 11:16 AMB (Rec: 02/28/21 11:41 AMB [id number]) Current Condition History of Current Condition Onset Date 8 months ago Current Complaints urinary leaking History of Current Condition 8 months ago leaking started, and has been staying the same since. Changes the thorpe once a day and they are damp. Can feel the leak happening, but hasn't found a pattern to when the leak happens. Does drink coffee and has been trying to drink more water as a part of a weight loss plan. Plays pickleball and isn't sure if that increaseses the leaking with activity. Long history of prostate hyperplasia that makes initiating the stream challenging. Prior Functional Status Baseline Function- ADL's Independent Baseline Function- Mobility Independent Current Functional Impairments (Reported) Functional Limitations- ADL's Nocturia, leaking- unsure when PT-OP-C Subjective Start: 02/27/21 10:43 Freq: Status: Active Protocol: Document 03/18/21 13:51 AMB (Rec: 03/18/21 13:56 AMB [id number]) OP-PT Subjective Patient Comments Patient Comments Was able to go through the night without waking. PT-OP-I Pelvic Floor Start: 02/27/21 10:43 Freq: Status: Active Protocol: Document 02/28/21 11:46 AMB (Rec: 02/28/21 12:03 AMB [id number]) Pelvic Floor Assessment SEMG (uV) Baseline 5 10 Second Contraction 9 Recruitment Pattern Fair Relaxation Fair Stability of Hold Poor/Slow PT-OP-T Assessment and Plan Start: 03/18/21 13:56 Freq: Status: Active Protocol: Document 04/15/21 09:29 AMB (Rec: 04/15/21 09:34 AMB [id number]) Physical Therapy Assessment Goals Two Impairment Continence Short Term Goal (STG) Troy will be aware of when/ if he is leaking and be able to contract his pelvic floor during those times. STG Duration 4 weeks One Impairment Strength Short Term Goal (STG) Troy will contract his pelvic floor muscles for 10 seconds without compensating with his abdominal muscles. STG Duration 4 weeks Visual Educator Goal (LTG) Troy will contract his pelvic floor muscles while moving from sit to stand. LTG Duration 8 weeks Assessment Summary Assessment At last visit: Troy is doing well with his goals, but this improvement has only been for 4 days so he is hesitant to be done with PT now, as he is worried sx might return. So reviewed HEP, and pt will cancel next week if he is doing well, and keep appt if he is having issues. Physical Therapy Plan Discharge Physical Therapy Discharge Reasons Patient Request Discharge Comments Pt canceled his last appt due to feeling better with his sx. He has been on hold and has not reached out to the clinic to schedule more, therefore is discharged at this time.
== END 2021-05-27 08:51 ==
LOC: PHYS 13:45
PROVIDERS: Family Provider Family Medicine; PCP Family Medicine; Referring Provider Family Medicine; Visit Provider Family Medicine
DX: N39.42 Incontinence without sensory awareness (principal); N39.45 Continuous leakage
CPT/HCPCS: 97110; 97112; 97161

== ENCOUNTER → 2021-06-08 11:25 | Outpatient (CLI) | payer MEDICARE, SELFPAY ==
[2021-06-08 11:51] LABS: COVID19 -Nasal RAPID Negative (Negative)
== END ==
PROVIDERS: Family Provider Family Medicine; PCP Family Medicine; Visit Provider Nurse Practitioner Family
DX: Z20.822 Contact with and (suspected) exposure to COVID-19 (principal)
CPT/HCPCS: 87635

== ENCOUNTER → 2021-11-20 12:04 | Outpatient (CLI) | payer MEDICARE, SELFPAY ==
--- NOTE | 2021-11-20 | DI.RAD.S_ITS ---
PROCEDURE: XR CHEST 2V INDICATIONS: SHORTNESS OF BREATH TECHNIQUE: 2 views of the chest were acquired. COMPARISON: [facility], , CHEST 2 VIEW, 07/22/2017, 19:06. FINDINGS: Surgical changes and devices: None. Lungs and pleura: Lungs are clear. No pleural effusions or pneumothorax. Mediastinum: Mediastinal contours are normal. Heart size is normal. Bones and chest wall: No suspicious bony abnormalities. Soft tissues appear unremarkable. IMPRESSION: No evidence acute pulmonary process. Dictated by: Kash Perea M.D. on 11/20/2021 at 15:54 Approved by: Kash Perea M.D. on 11/20/2021 at 15:55
== END ==
PROVIDERS: Family Provider Family Medicine; PCP Family Medicine; Referring Provider Physician Assistant; Visit Provider Physician Assistant
DX: R06.02 Shortness of breath (principal)
CPT/HCPCS: 71046

== ENCOUNTER 2022-03-09 12:58 | Observation (INO) | payer MEDICARE, SELFPAY ==
[2022-03-09] VITALS (19 sets, daily range): BP systolic 101–160; BP diastolic 54–75; PULSE 66–109; RESP 14–24; TEMP 36.1–36.3; O2SAT 94–100; BMI 33.8
--- NOTE | 2022-03-09 13:09 | DI.RAD.S_ITS ---
PROCEDURE: XR CHEST 1V INDICATIONS: chest pain TECHNIQUE: One view of the chest was acquired. COMPARISON: [facility], CR, XR CHEST 2V, 11/20/2021, 12:09. FINDINGS: Surgical changes and devices: None. Lungs and pleura: Lungs are clear. No pleural effusions or pneumothorax. Mediastinum: Mediastinal contours appear normal. Heart size is normal. Bones and chest wall: No suspicious bony lesions. Overlying soft tissues appear unremarkable. IMPRESSION: No acute process. Dictated by: Summer Kelly M.D. on 03/09/2022 at 13:46 Approved by: Summer Kelly M.D. on 03/09/2022 at 13:48
[2022-03-09 13:23] LABS: Add Manual Diff / Slide Review NO; Basophils Absolute Auto 0 /uL (0-100); Basophils Percent Auto 0.4 % (0-2); Eosinophils Absolute Auto 100 /uL (0-450); Eosinophils Percent Auto 0.8 % (2-4); Hematocrit 36.9 % (41-53); Hemoglobin 12.6 g/dL (13.5-17.5); Lymphocytes Absolute Auto 500 /uL (1100-4500); Lymphocytes Percent Auto 6.5 % (25-40); Mean Corpuscular Hemoglobin 32.4 PG (26-34); Mean Corpuscular Volume 95.3 fL (80-100); Monocytes Absolute Auto 700 /uL (0-900); Monocytes Percent Auto 9.3 % (3-14); Neutrophils Absolute Auto 6200 /uL (1500-7000); Platelet Count 292 X10^3/uL (150-400); Red Blood Cell Count 3.87 X10^6/uL (4.5-5.9); Red Cell Distribution Width 13.2 % (11.6-14.8); White Blood Cell Count 7.5 X10^3/uL (4.5-11.0)
[2022-03-09 13:33] LABS: Alanine Aminotransferase 22 IU/L (<50); Albumin 3.9 g/dL (3.5-5.0); Albumin Globulin Ratio 1.5 (1.0-2.8); Alkaline Phosphatase 62 U/L (38-126); Aspartate Aminotransferase 22 IU/L (17-59); BUN Creatinine Ratio 22.4 (6-22); Bilirubin Total 0.8 mg/dL (0.2-1.3); Blood Urea Nitrogen 19 mg/dL (9-20); Calcium 8.4 mg/dL (8.4-10.2); Carbon Dioxide 22 mmol/L (22-32); Chloride 91 mmol/L (98-107); Creatine Kinase 44 U/L (55-170); Estimated Glomerular Filt Rate > 60 mL/min (>60); Globulin 2.6 g/dL (1.7-4.1); Glucose 122 mg/dL (80-110); HEMOLYSIS < 15 (0-50); Lipase 35 U/L (23-300); Magnesium 1.6 mg/dL (1.6-2.3); Potassium 4.4 mmol/L (3.4-5.1); Sodium 123 mmol/L (137-145); Total Protein 6.5 g/dL (6.3-8.2)
[2022-03-09 13:45] LABS: Troponin I < 0.012 ng/mL (0.01-0.034)
[2022-03-09 14:32] LABS: COVID19 -Nasal RAPID Negative (Negative)
--- NOTE | 2022-03-09 15:39 | ED_ITS ---
HPI - Dizziness General Chief Complaint: Dizziness Stated Complaint: bp low/heart rate irregular Time Seen by Provider: 03/09/22 14:46 Source: patient Mode of arrival: Ambulatory Limitations: no limitations History of Present Illness HPI Narrative: This is a 76-year-old male with known chronic hyponatremia, hypertension, anxiety/depression and urinary retention. Patient states today was just moving around the house when he felt like the bottom just dropped out. He is felt like there was a squeezing on his bilateral shoulders at the trapezius muscle. Patient states he felt dizzy and weak but did feel like he was going to pass out. Patient states that last from 02-24 3:00 p.m. he felt weak but no lateraliz ing weakness. No chest pain or pressure. He did feel little short of breath. He was never diaphoretic. He denies nausea or vomiting. Some diarrhea earlier today when he woke up x3 but attributes that to having a lot of grapes yesterday. Denies any bright red blood/hematochezia or melena. No new urinary symptoms. No swelling in his extremities. No headaches, no sudden vision changes or speech issues. Notes a persistent cough of greenish phlegm he is following up with his physician and was started on sounds like a PPI for this. Patient has not had any other recent medication changes. Has had bilateral hip surgery, no prior cardiac stents or cardiac or pulmonary surgery. No illicit, no alcohol quit smoking 12 years ago. No known drug allergies. He lives independently with his . Related Data Home Medications Medication Instructions Recorded Confirmed ascorbic acid (vitamin C) PO DAILY 01/09/21 01/22/22 cholecalciferol (vitamin D3) PO 01/09/21 01/22/22 phytonadione (vitamin K1) PO 01/09/21 01/22/22 vitamin A palmitate PO 01/09/21 01/22/22 vitamin B complex PO 01/09/21 01/22/22 Previous Rx's Medication Instructions Recorded solifenacin 5 mg tablet 5 mg PO DAILY #90 tabs 05/19/21 amlodipine 5 mg tablet See Rx Instructions .Route 08/06/21 .COMPLEX #90 tabs losartan 100 mg tablet See Rx Instructions .Route 08/06/21 .COMPLEX #90 tabs fluoxetine 20 mg capsule See Rx Instructions .Route 11/03/21 .COMPLEX #360 caps tamsulosin 0.4 mg capsule See Rx Instructions .Route 02/09/22 .COMPLEX #90 caps omeprazole 20 mg capsule,delayed See Rx Instructions .Route 02/18/22 release .COMPLEX #180 caps Allergies Allergy/AdvReac Type Severity Reaction Status Date / Time Neoprene AdvReac rash Uncoded 11/03/21 12:21 Review of Systems Review of Systems ROS Unobtainable: All systems reviewed & are unremarkable except as noted in HPI and below Patient History Medical History 1st degree AV block Atypical nevus of forehead Balance problem BPH (benign prostatic hyperplasia) (Unknown) BPH w urinary obs/LUTS BPPV (benign paroxysmal positional vertigo) Chronic cough Chronic hyponatremia Degenerative joint disease (DJD) of hip (Unknown) Depression (Unknown) FH: bilateral hip replacements Incontinence without sensory awareness Lightheadedness Low back pain Nasal bleeding Obesity (BMI 30-39.9) Obstructive sleep apnea, adult Osteoarthritis (Unknown) Syncope and collapse Urinary incontinence Weight loss counseling, encounter for Surgical History History of hip replacement History of tonsillectomy Status post appendectomy Status post hernia repair Family History Father Heart disease Kidney disease Loud snoring Mother Obesity Hypertension Depression Anxiety Social History marital status: number of children: 4 household members: spouse occupational status: employed 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 HEENT: Atraumatic, pupils are equal round reactive to light, extraocular movements are intact, nares are clear. Throat is clear without any exudates, erythema, tonsillar enlargement or uvular deviation HEART: Regular rate and rhythm without murmur, clicks, rubs. Pulses are equal in upper and lower extremities LUNGS:Lungs clear to auscultation, no wheezes, rales, crackles, chest moves symmetrically, no tachypnea accessory muscle use. ABD:bowel sounds normal, soft, non-tender, no guarding, rebound, rigidity, no masses noted, no hepatosplenomegaly :No CVA tenderness MSCL: Non-tender, no muscle atrophy, muscles strength 5/5 upper and lower extremities, full range of motion NEURO:CN 2-12 intact, sensation normal SKIN: No rash, erythema or other skin changes. Initial Vital Signs Initial Vital Signs: Vital Signs Pulse Rate 96 H 03/09/22 13:04 Respiratory Rate 17 03/09/22 13:04 Scores GCS Carnegie coma scale eye opening: Spontaneous Carnegie coma scale verbal response: Orientated Carnegie coma scale motor response: Obey commands Osvaldo coma scale total score: 15 HEART Score Heart Score history: Moderately Suspicious Heart Score EKG: Non-Specific repolarization disturbance Heart Score Age: > or = 65 years old Heart Score risk factors: 1-2 risk factors Heart Score troponin: < or = to normal limit Heart Score Total: 5 Course Orders Ordered: ED Orders 03/09/22 13:09 XR chest 1V Stat EKG-12 Lead Stat 03/09/22 13:15 Complete Blood Count AUTO DIFF Stat Comprehensive Metabolic Panel Stat Lipase Stat Magnesium Stat Troponin & CK Cardiac Panel Stat 03/09/22 14:14 COVID19 -Nasal RAPID/Pre-Proc Stat 03/09/22 15:52 Trop I [Troponin I] Stat EKG-12 Lead Stat Acetaminophen (Acetaminophen 325 Mg Tablet) 650 mg PO Q6H PRN PRN Reason: Fever/Mild Pain (1-3) Enoxaparin Sodium (Enoxaparin 40 Mg/0.4 Ml Syringe) 40 mg SUBCUT DAILY PAULINA Meclizine HCl (Meclizine Hcl 12.5 Mg Tablet) 25 mg PO Q6HR PRN PRN Reason: Vertigo Ondansetron HCl (Ondansetron 4 Mg/2 Ml Inj) 4 mg IV Q8HR PRN PRN Reason: Nausea And Vomiting Discontinued Medications Aspirin (Aspirin 81 Mg Chew Tab) 324 mg PO NOW ONE Stop: 03/09/22 17:39 Last Admin: 03/09/22 18:18 Dose: 324 mg Documented By: JOSEPH Vital Signs Vital signs: Vital Signs - 8 hr 03/09/22 13:07 03/09/22 13:04 03/09/22 13:06 Temperature 97.4 F L Pulse Rate 79 96 H Respiratory Rate 24 17 Blood Pressure 137/62 137/63 Pulse Oximetry 98 Oxygen Delivery Method Room Air 03/09/22 13:06 03/09/22 13:30 03/09/22 13:30 Temperature Pulse Rate 84 76 Respiratory Rate 17 16 Blood Pressure 109/62 Pulse Oximetry 95 95 Oxygen Delivery Method 03/09/22 14:00 03/09/22 14:00 03/09/22 14:30 Temperature Pulse Rate 79 Respiratory Rate 18 Blood Pressure 101/54 L 130/65 Pulse Oximetry 94 Oxygen Delivery Method 03/09/22 14:30 03/09/22 15:00 03/09/22 15:00 Temperature Pulse Rate 71 72 Respiratory Rate 15 14 Blood Pressure 136/64 Pulse Oximetry 96 98 Oxygen Delivery Method 03/09/22 15:30 03/09/22 15:30 03/09/22 15:42 Temperature Pulse Rate 67 Respiratory Rate 16 Blood Pressure 128/75 160/75 H Pulse Oximetry 99 Oxygen Delivery Method 03/09/22 15:42 03/09/22 16:00 03/09/22 16:00 Temperature Pulse Rate 76 68 Respiratory Rate 18 16 Blood Pressure 142/71 H Pulse Oximetry 98 98 Oxygen Delivery Method 03/09/22 16:30 03/09/22 16:30 03/09/22 17:03 Temperature Pulse Rate 69 109 H Respiratory Rate 17 20 Blood Pressure 152/72 H Pulse Oximetry 96 Oxygen Delivery Method Room Air 03/09/22 17:30 03/09/22 17:38 03/09/22 17:38 Temperature Pulse Rate 71 74 Respiratory Rate 16 24 Blood Pressure 145/75 H Pulse Oximetry 98 Oxygen Delivery Method MDM - Dizziness Lab Data Result diagrams: 03/09/22 13:15 03/09/22 13:15 Labs: Lab Results 03/09/22 03/09/22 03/09/22 Range/Units 13:15 13:15 14:14 WBC 7.5 (4.5-11.0) X10^3/uL RBC 3.87 L (4.5-5.9) X10^6/uL Hgb 12.6 L (13.5-17.5) g/dL Hct 36.9 L (41-53) % MCV 95.3 (80-100) fL MCH 32.4 (26-34) PG MCHC 34.0 (30-36) % RDW 13.2 (11.6-14.8) % Plt Count 292 (150-400) X10^3/uL Neut % (Auto) 83.0 H (50-75) % Lymph % (Auto) 6.5 L (25-40) % [place] % (Auto) 9.3 (3-14) % Eos % (Auto) 0.8 L (2-4) % Baso % (Auto) 0.4 (0-2) % Neut # (Auto) 6200 (1673-0632) /uL Lymph # (Auto) 500 L (3869-4215) /uL [place] # (Auto) 700 (0-900) /uL Eos # (Auto) 100 (0-450) /uL Baso # (Auto) 0 (0-100) /uL Sodium 123 L (137-145) mmol/L Potassium 4.4 (3.4-5.1) mmol/L Chloride 91 L (98-107) mmol/L Carbon Dioxide 22 (22-32) mmol/L BUN 19 (9-20) mg/dL Creatinine 0.85 (0.66-1.25) mg/dL Estimated GFR > 60 (>60) mL/min BUN/Creatinine Ratio 22.4 H (6-22) Glucose 122 H (80-110) mg/dL Calcium 8.4 (8.4-10.2) mg/dL Magnesium 1.6 (1.6-2.3) mg/dL Total Bilirubin 0.8 (0.2-1.3) mg/dL AST 22 (17-59) IU/L ALT 22 (<50) IU/L Alkaline Phosphatase 62 (38-126) U/L Total Creatine Kinase 44 L (55-170) U/L CK-MB (CK-2) TNP CK-MB (CK-2) Rel Index TNP Troponin I < 0.012 (0.01-0.034) ng/mL Total Protein 6.5 (6.3-8.2) g/dL Albumin 3.9 (3.5-5.0) g/dL Globulin 2.6 (1.7-4.1) g/dL Albumin/Globulin Ratio 1.5 (1.0-2.8) Lipase 35 (23-300) U/L SARS-CoV-2 (PCR) Negative (Negative) 03/09/22 Range/Units 15:52 WBC (4.5-11.0) X10^3/uL RBC (4.5-5.9) X10^6/uL Hgb (13.5-17.5) g/dL Hct (41-53) % MCV (80-100) fL MCH (26-34) PG MCHC (30-36) % RDW (11.6-14.8) % Plt Count (150-400) X10^3/uL Neut % (Auto) (50-75) % Lymph % (Auto) (25-40) % [place] % (Auto) (3-14) % Eos % (Auto) (2-4) % Baso % (Auto) (0-2) % Neut # (Auto) (8663-9338) /uL Lymph # (Auto) (3641-9570) /uL [place] # (Auto) (0-900) /uL Eos # (Auto) (0-450) /uL Baso # (Auto) (0-100) /uL Sodium (137-145) mmol/L Potassium (3.4-5.1) mmol/L Chloride (98-107) mmol/L Carbon Dioxide (22-32) mmol/L BUN (9-20) mg/dL Creatinine (0.66-1.25) mg/dL Estimated GFR (>60) mL/min BUN/Creatinine Ratio (6-22) Glucose (80-110) mg/dL Calcium (8.4-10.2) mg/dL Magnesium (1.6-2.3) mg/dL Total Bilirubin (0.2-1.3) mg/dL AST (17-59) IU/L ALT (<50) IU/L Alkaline Phosphatase (38-126) U/L Total Creatine Kinase (55-170) U/L CK-MB (CK-2) CK-MB (CK-2) Rel Index Troponin I < 0.012 (0.01-0.034) ng/mL Total Protein (6.3-8.2) g/dL Albumin (3.5-5.0) g/dL Globulin (1.7-4.1) g/dL Albumin/Globulin Ratio (1.0-2.8) Lipase (23-300) U/L SARS-CoV-2 (PCR) (Negative) Imaging Data Chest x-ray: Radiologist's Impression: [address] [address] XRay Report Signed Patient: Troy Tineo MR#: [id number] : 1945 Acct:[id number] Age/Sex: 76 / M Date of Service: 03/09/22 Loc: ED Accession Number: [id number] ?? Procedure: XR chest 1V Ordering Provider: Arlene Nails D.O. PROCEDURE:? XR CHEST 1V ? INDICATIONS:? chest pain ? TECHNIQUE:? One view of the chest was acquired.? ? COMPARISON:? [facility], CR, XR CHEST 2V, 11/20/2021, 12:09. ? FINDINGS:? ? Surgical changes and devices:? None.? ? Lungs and pleura:? Lungs are clear.? No pleural effusions or pneumothorax.? ? Mediastinum:? Mediastinal contours appear normal.? Heart size is normal.? ? Bones and chest wall:? No suspicious bony lesions.? Overlying soft tissues appear unremarkable.? ? IMPRESSION:? No acute process. ? ? Dictated by: Summer Kelly M.D. on 03/09/2022 at 13:46 ? ? Approved by: Summer Kelly M.D. on 03/09/2022 at 13:48?? ECG Data Attestation: I personally reviewed and interpreted this ECG as follows: Interpretation: Sinus rhythm with first-degree AV block, rate of 70 9p are 226, QRS of 90 QTC of 442. No acute ST elevation or depression appreciated. Patient has prior from 2019 appears similar with first-degree AV block and biphasic P wave. EKG 2. Shows sinus rhythm first-degree AV block, rate of 60 9p are 232 QRS of 90 and QTC of 452. No acute ST changes appreciated. MDM Narrative Medical decision making narrative: This is a 76-year-old male chronic hyponatremia with acute worsening at 123. his lowest has been 126 in the past couple years. Patient also had some tightness in his trapezius muscles at the time of onset of symptoms. Initial troponin was negative and repeat are negative, EKG shows first-degree AV block but no obvious ST segment changes. This was repeated and is negative with no dynamic changes. Spoke with hospitalist as concerned about possible atypical chest pain. Hy ponatremia is likely actute on chronic with recent was 127. Discussed with hospitalist who accepts for observation. Discharge Plan Departure Patient Disposition: Admitted as Observation Clinical Impression: Hyponatremia, Atypical chest pain Admit Date/Time: 03/09/22 17:41 Admit Provider: Fred Pacheco
[2022-03-09 16:31] LABS: Troponin I < 0.012 ng/mL (0.01-0.034)
[2022-03-09] MEDS: ASPIRIN 81 MG CHEW TAB 324 MG PO (18:18)
--- NOTE | 2022-03-09 18:42 | PC.NURSE ---
Pt arrived from ED at 1840, pleasant, A&OX4. He denies c/o shoulder pain or chest pain, DAVIS or dizziness. He ambulates around the room independently. VSS, afebrile. He ambulates to BR and is able to void. He reports feeling hungry not having been able to eat all day in ED. Heart Healthy diet snacks offered to patient with water. He is placed on telemetry and oriented to room/unit routines. Call light in reach, bed alarm on. Endorsed admission assessment to oncoming RN.
[2022-03-09 19:02] LABS: Sodium Urine Random 69 mmol/L (30-90)
--- NOTE | 2022-03-09 20:01 | DI.ECHO.S_ITS ---
[facility] +---------+ : : [id number] [place] [address] : : : : [id number] : : : : Phone: [phone]+ Echocardiogram Report + + :Name: JACOB MACIAS Study Date: 03/10/2022 Height: 68 in : :[facility] ReadingLocation: Weight: 222 lb : : Gender: Male BSA: 2.1 m2 : :: 1945 Age: 76 yrs BP: 140/73 mmHg: :Reason For Study: CHEST PAIN : :Ordering Physician: SHADIA, : :OPAL Performed By: Kandi Perez : :Referring: OPAL [place] : + + Interpretation Summary There is mild concentric left ventricular hypertrophy. The ejection fraction is estimated to be 60-65%. The right ventricle is mildly dilated. The right ventricular systolic function is normal. There is a hyperechoic mass attached to the right atrial wall. This could be consistent with a prominent eustachian valve versus eustachian valve with attached thrombus versus myxoma. There is mild aortic regurgitation. Pulmonary artery pressures cannot be estimated because of the lack of a measurable TR jet velocity. Compared to the prior study dated 04/24/2019, the right atrial mass is not readily visualized on the prior study however the images are limited. Procedure: A two-dimensional transthoracic echocardiogram with color flow and Doppler was performed. The study quality was technically difficult. Comparison is made with the echocardiogram of 04/24/2019. The patient was in sinus rhythm with heart rates between 66-74 bpm during the exam. Left Ventricle: The left ventricle is normal in size. There is mild concentric left ventricular hypertrophy. The ejection fraction is estimated to be 60-65%. Diastolic function could not be accurately assessed due to unobtainable data. Right Ventricle: The right ventricle is mildly dilated. The right ventricular systolic function is normal. Atria: The left atrium is mildly dilated. The right atrium is mildly dilated. There is a hyperechoic mass attached to the right atrial wall. This could be consistent with a prominent eustachian valve versus eustachian valve with attached thrombus versus myxoma. There is no Doppler evidence for an interatrial shunt. Mitral Valve: The mitral valve is normal in structure and function. There is trace mitral regurgitation. Aortic Valve: There is mild aortic valve sclerosis. The aortic valve is grossly normal. There is no aortic valve stenosis. There is mild aortic regurgitation. Tricuspid Valve: The tricuspid valve is normal in structure and function. There is trace tricuspid regurgitation. Pulmonary artery pressures cannot be estimated because of the lack of a measurable TR jet velocity. Pulmonic Valve: The pulmonic valve is not well seen, but is grossly normal. There is trace pulmonic regurgitation. Great Vessels: The aortic root is normal size. The ascending aorta is at the upper limits of normal in size. The IVC is of normal diameter and collapses greater than 50% with a sniff. This suggests a low right atrial pressure of 3 mm Hg. Pericardium/ Pleura There is no pericardial effusion. There is no pleural effusion. MMode/2D Measurements & Calculations LVIDd: 4.3 cm LVOT diam: 2.4 cm LVIDs: 3.0 cm Ao root diam: 3.7 cm FS: 31.8 % asc Aorta Diam: 3.9 cm IVSd: 1.1 cm Ao Arch Diam (Prox Trans): 3.0 cm LVPWd: 1.3 cm LV franco. diameter/BSA (cm/m^2): 2.0 LV sys. diameter/BSA (cm/m^2): 1.4 LA A2 area: 29.4 cm2 RA long axis: 5.5 cm LA A4 area: 25.4 cm2 RA area: 22.1 cm2 LA length (vol): 6.3 cm RA vol: 75.5 ml LA vol: 101.0 ml RA : 35.3 ml/m2 LA vol index: 47.3 ml/m2 IVC diam: 1.3 cm RVD1 (basal): 4.7 cm RVD2 (mid): 3.5 cm TAPSE: 3.0 cm Doppler Measurements & Calculations Ao V2 max: 182.5 cm/sec LVOT Max Ha: 131.0 cm/sec Ao V2 mean: 125.9 cm/sec LV V1 max P.9 mmHg Ao max P.7 mmHg LV V1 VTI: 29.9 cm Ao mean P.9 mmHg RELL(I,D): 3.7 cm2 Ao V2 VTI: 37.9 cm RELL(V,D): 3.4 cm2 sev ratio: 0.79 RELL indexed to BSA (cm^2/m^2): 1.7 MV E max ha: 62.6 cm/sec PA V2 max: 88.1 cm/sec MV A max ha: 68.2 cm/sec PA V2 mean: 61.0 cm/sec MV E/A: 0.92 PA mean P.7 mmHg Med Peak E' Ha: 6.6 cm/sec PA pr(Accel): 24.2 mmHg E/E' med: 9.5 Lat Peak E' Ha: 7.5 cm/sec E/E' lat: 8.3 E/e' average: 8.9 MV dec time: 0.24 sec SV(LVOT): 140.1 ml Reading Physician:02:15 PM
[2022-03-09 20:23] LABS: Uric Acid 2.9 mg/dL (3.5-8.5)
[2022-03-09 20:33] LABS: NT-proBNP (BNP-Adult 18+) 35 pg/mL (<450)
[2022-03-09 21:46] LABS: Troponin I < 0.012 ng/mL (0.01-0.034)
[2022-03-09] MEDS: TAMSULOSIN 0.4 MG CAPSULE PO (21:47)
[2022-03-09] MEDS: SODIUM CHLORIDE 0.9% 1,000 ML 80 ML IV (22:27)
[2022-03-10] VITALS (8 sets, daily range): BP systolic 114–151; BP diastolic 56–77; PULSE 63–99; RESP 17–18; TEMP 36.2–36.4; O2SAT 95–98
--- NOTE | 2022-03-10 00:06 | PM.HP.1 ---
History of Present Illness History of Present Illness Date Patient Seen: 03/09/22 Time Patient Seen: 18:38 Chief complaint: bp low/heart rate irregular Narrative: Troy mireles is a 76-year-old male with a history of hypertension, chronic hyponatremia, obesity, depression/anxiety, GERD, benign prostatic hypertrophy with urinary retention presented to the ED after experiencing a squeezing pain to his bilateral shoulders at the trapezius muscle,that comes & goes, no radiation, unknown trigger, and nothing seemed to resolve it, dizzy, generalized weakness, mild SOB, and near syncope while doing normal activities around his home. Symptoms did not vincent when he sat down to rest and continued for approximately 2-3 hours. Patient does note that he plays pickleball which is of form of tennis like activity with a whiffle ball and a smaller court. Patient denied lateralizing weakness, chest pain, pressure, diaphoresis, abd pain,nausea, vomiting, bright red blood/hematochezia, melena, new urinary symptoms, swelling in his extremities, headaches, vision changes, speech issues, swallowing difficulties, balance or coordination issues.? Endorses 3 episodes of diarrhea earlier today, which have resolved, persistent cough productive greenish phlegm-recently started on omperazolefor this.? Patient has not had any other recent medication changes.? Has had bilateral hip surgery, no prior cardiac stents or cardiac or pulmonary surgery.? No illicit, no alcohol quit smoking 12 years ago.? No known drug allergies.? He lives independently with his . Denies recent illness injury or trauma. At the time of admit patient is asymptomatic, he is resting comfortably in bed in no distress. Vitals temp 97.4?, BP 138/67, HR 71, R 20, O2 sat 100% on room air. Mild anemia noted not previously seen on labs HGB 12.6, HCT 36.9, acute on chronic hyponatremia sodium 123 (baseline 127-130), glucose 122, Mag is stable at 1.6, urine sodium 69 normal, COVID negative, troponin x2 WNL, chest x-ray is negative for any acute cardiopulmonary processes. Patient's EKG sinus rhythm with a rate of 70 first-degree AV block without ST or T-wave changes, repeat EKG unchanged. Heart Score: 5 Patient admitted for atypical chest pain, acute on chronic hyponatremia. Patient History Medical History (Updated 03/10/22 @ 00:23 by OJSIE Manning-RAFAEL) 1st degree AV block Atypical nevus of forehead Balance problem BPH (benign prostatic hyperplasia) (Unknown) BPH w urinary obs/LUTS BPPV (benign paroxysmal positional vertigo) Chronic cough Chronic hyponatremia Degenerative joint disease (DJD) of hip (Unknown) Depression (Unknown) FH: bilateral hip replacements Incontinence without sensory awareness Lightheadedness Low back pain Nasal bleeding Obesity (BMI 30-39.9) Obstructive sleep apnea, adult Osteoarthritis (Unknown) Syncope and collapse Urinary incontinence Weight loss counseling, encounter for Surgical History History of hip replacement History of tonsillectomy Status post appendectomy Status post hernia repair Family & Social History Family History Father Heart disease Kidney disease Loud snoring Mother Obesity Hypertension Depression Anxiety Social History: household members spouse Prior Living Arrangements House Safety & Behavioral: Feels Safe in Current Yes Environment Been Physically Hurt or No Threatened By a Person Tobacco & Substance use: Smoking Status Former smoker alcohol intake never alcohol intake frequency holiday/special occasion Substance Use Type does not use Meds Home Medications and Allergies Home Medications Medication Instructions Recorded Confirmed Type solifenacin 5 mg tablet 5 mg PO DAILY #90 tabs 05/19/21 03/09/22 Rx amlodipine 5 mg tablet 5 mg PO DAILY 03/09/22 03/09/22 History fluoxetine 20 mg capsule 80 mg PO DAILY 03/09/22 03/09/22 History losartan 100 mg tablet 100 mg PO DAILY 03/09/22 03/09/22 History omeprazole 20 mg capsule,delayed 20 mg PO BID 03/09/22 03/09/22 History release tamsulosin 0.4 mg capsule 0.4 mg PO BEDTIME 03/09/22 03/09/22 History Allergies Allergy/AdvReac Type Severity Reaction Status Date / Time Neoprene AdvReac rash Uncoded 11/03/21 12:21 Review of Systems Review of Systems Narrative: All 12 point systems reviewed with the patient and are negative except otherwise documented. Exam Vital Signs (past 8 hours): - 03/09/22 16:30 03/09/22 16:30 03/09/22 17:03 Temperature Pulse Rate 69 109 H Respiratory Rate 17 20 Blood Pressure 152/72 H Pulse Oximetry 96 Oxygen Delivery Method Room Air Oxygen Flow Rate 03/09/22 17:30 03/09/22 17:38 03/09/22 17:38 Temperature Pulse Rate 71 74 Respiratory Rate 16 24 Blood Pressure 145/75 H Pulse Oximetry 98 Oxygen Delivery Method Oxygen Flow Rate 03/09/22 18:00 03/09/22 18:00 03/09/22 18:38 Temperature Pulse Rate 71 Respiratory Rate 23 Blood Pressure 138/67 Pulse Oximetry 97 100 Oxygen Delivery Method Room Air Oxygen Flow Rate 03/09/22 18:38 03/09/22 19:05 03/09/22 23:00 Temperature 97.4 F L 96.9 F L 97.1 F L Pulse Rate 71 69 66 Respiratory Rate 20 19 18 Blood Pressure 138/67 150/74 H 140/73 Pulse Oximetry 100 99 97 Oxygen Delivery Method Oxygen Flow Rate 0 0 Oxygen Delivery Method Room Air Oxygen Flow Rate 0 Narrative Exam Narrative: General: Patient is a well-developed, well-nourished in no distress at this time. HEENT: Normocephalic, atraumatic, extraocular muscles intact, oral pharynx is clear and mucous membranes are moist. Neck is supple and symmetric, trachea is midline, no adenopathy, no thyroid enlargement, nontender, no masses palpated. Negative for JVD Chest: Normal AP diameter and contour without kyphoscoliosis, no nasal flaring, retractions, or tachypneic labored Lungs: Auscultation of all lung ferreira are clear without adventitious sounds, wheezes, rhonchi, or rales. Cardio: regular rate and rhythm without murmur, rubs, or gallops, no carotid bruit, no cardiac pulsations present. Abdomen: Soft nontender, negative for organomegaly, or masses. Bowel sounds are present in all 4 quadrants without guarding or rebound, no CVA tenderness. Musculoskeletal: Muscle strength and tone are equal within normal limits, no deformity, crepitus, effusions, cyanosis, clubbing present. Mild bilateral nonpitting edema. Full range of motion intact radial and pedal pulses are normal. Skin: Warm dry and intact without rashes, ulcerations or petechiae. Neuro: Alert and orientated x3, strength is +5/5 in all extremities, sensation to touch intact, no gross deficits noted of cranial nerves. GCS 15 Psych: Patient has a well-kept appearance, appropriate affect, mental status attitude thought context and judgment are appropriate for age. Objective Labs Result Diagrams: 03/09/22 13:15 03/09/22 13:15 Labs: Laboratory Results - last 24 hr 03/09/22 03/09/22 03/09/22 13:15 13:15 14:14 WBC 7.5 RBC 3.87 L Hgb 12.6 L Hct 36.9 L MCV 95.3 MCH 32.4 MCHC 34.0 RDW 13.2 Plt Count 292 Neut % (Auto) 83.0 H Lymph % (Auto) 6.5 L [place] % (Auto) 9.3 Eos % (Auto) 0.8 L Baso % (Auto) 0.4 Neut # (Auto) 6200 Lymph # (Auto) 500 L [place] # (Auto) 700 Eos # (Auto) 100 Baso # (Auto) 0 Sodium 123 L Potassium 4.4 Chloride 91 L Carbon Dioxide 22 BUN 19 Creatinine 0.85 Estimated GFR > 60 BUN/Creatinine Ratio 22.4 H Glucose 122 H Uric Acid Calcium 8.4 Magnesium 1.6 Total Bilirubin 0.8 AST 22 ALT 22 Alkaline Phosphatase 62 Total Creatine Kinase 44 L CK-MB (CK-2) TNP CK-MB (CK-2) Rel Index TNP Troponin I < 0.012 NT-Pro-B Natriuret Pep Total Protein 6.5 Albumin 3.9 Globulin 2.6 Albumin/Globulin Ratio 1.5 Lipase 35 Ur Random Sodium SARS-CoV-2 (PCR) Negative 03/09/22 03/09/22 03/09/22 15:52 15:52 15:52 WBC RBC Hgb Hct MCV MCH MCHC RDW Plt Count Neut % (Auto) Lymph % (Auto) [place] % (Auto) Eos % (Auto) Baso % (Auto) Neut # (Auto) Lymph # (Auto) [place] # (Auto) Eos # (Auto) Baso # (Auto) Sodium Potassium Chloride Carbon Dioxide BUN Creatinine Estimated GFR BUN/Creatinine Ratio Glucose Uric Acid 2.9 L Calcium Magnesium Total Bilirubin AST ALT Alkaline Phosphatase Total Creatine Kinase CK-MB (CK-2) CK-MB (CK-2) Rel Index Troponin I < 0.012 NT-Pro-B Natriuret Pep 35 Total Protein Albumin Globulin Albumin/Globulin Ratio Lipase Ur Random Sodium SARS-CoV-2 (PCR) 03/09/22 03/09/22 18:15 21:11 WBC RBC Hgb Hct MCV MCH MCHC RDW Plt Count Neut % (Auto) Lymph % (Auto) [place] % (Auto) Eos % (Auto) Baso % (Auto) Neut # (Auto) Lymph # (Auto) [place] # (Auto) Eos # (Auto) Baso # (Auto) Sodium Potassium Chloride Carbon Dioxide BUN Creatinine Estimated GFR BUN/Creatinine Ratio Glucose Uric Acid Calcium Magnesium Total Bilirubin AST ALT Alkaline Phosphatase Total Creatine Kinase CK-MB (CK-2) CK-MB (CK-2) Rel Index Troponin I < 0.012 NT-Pro-B Natriuret Pep Total Protein Albumin Globulin Albumin/Globulin Ratio Lipase Ur Random Sodium 69 SARS-CoV-2 (PCR) Assessment & Plan Assessment & Plan narrative: Troy mireles is a 76-year-old male with a history of hypertension, chronic hyponatremia, obesity, depression/anxiety, GERD, benign prostatic hypertrophy with urinary retention presented to the ED with complaints of atypical chest pain. Patient had a heart Score of 5, warranting admit for observation to complete echo and trend troponins overnight, as well as mild hydration to return sodium levels to previous baseline. 1. Atypical chest pain, acute, present on admission- resolved -patient is stable asymptomatic and resting at this time. Heart Score:5 -I suspect that this is musculoskeletal trapezius pain due to patient playing pickleball, and not cardiac in nature. -Chest pain protocol-telemetry, MS, Nitro PRN -temp 97.4?, BP 138/67, HR 71, R 20, O2 sat 100% on room air. -chest x-ray is negative for any acute cardiopulmonary processes. -EKG sinus rhythm with a rate of 70 first-degree AV block without ST or T-wave changes, repeat EKG unchanged. Heart Score: 5 Patient admitted for atypical chest pain, acute on chronic hyponatremia. -troponin x2 WNL- repeat 3rd in am -Mag 1.6, potassium 4.4 -ordered BNP, lipids, TSH, free T4, A1C -exercise stress test and echo ordered for tomorrow 2. Mild anemia, acute, present on admission -HGB 12.6, HCT 36.9 -chin hematology labs, monitor for bleeding 3. Hypertension, essential, present on admission -continue losartan, amlodipine 4. Hyponatremia, acute on chronic, present on admission -hyponatremia sodium 123 (baseline 127-130) - urine sodium 69 normal, ordered serum osmolality-pending, lipids, uric acid, BUN 19 -may be related to SIADH from his as SSRI -NS at 80 cc/HR 4. Benign prostatic hypertrophy, chronic, present on admission -continue tamsulosin -bladder scan as needed 5. Depression/anxiety, chronic, present on admission -continue fluoxetine 6. GERD, chronic, present on admission -continue PPI Code status: Full Surrogate decision maker: Angella De La Cruz COVID PCR: Negative DVT/VTE prophylaxis: Lovenox and SCDs Disposition: Patient admitted for observation expected length of stay less than 2 midnights I have utilized all available immediate resources to obtain, update, or review the patient's current medications. I confirmed that the patient's advanced care plan is present, Code status is documented and/or surrogate decision maker is listed in the patient's medical record. I have personally reviewed patient's chart notes from PCP, specialists, diagnostic imaging, and laboratory, Time Spent With Patient Critical Care time: I spent a total of [] minutes of critical care time on this patient's care today; this time is exclusive of procedural time. Quality VTE Deep Vein Thrombosis/Pulmonary Embolism Present on Admission: No
[2022-03-10 06:25] LABS: Add Manual Diff / Slide Review NO; Basophils Absolute Auto 0 /uL (0-100); Basophils Percent Auto 0.8 % (0-2); Eosinophils Absolute Auto 300 /uL (0-450); Eosinophils Percent Auto 5.3 % (2-4); Hemoglobin 11.3 g/dL (13.5-17.5); Lymphocytes Absolute Auto 1000 /uL (1100-4500); Lymphocytes Percent Auto 17.4 % (25-40); Mean Corpuscular HGB Conc 34.3 % (30-36); Mean Corpuscular Hemoglobin 32.7 PG (26-34); Mean Corpuscular Volume 95.4 fL (80-100); Monocytes Absolute Auto 800 /uL (0-900); Monocytes Percent Auto 13.7 % (3-14); Neutrophils Absolute Auto 3500 /uL (1500-7000); Neutrophils Percent Auto 62.8 % (50-75); Platelet Count 259 X10^3/uL (150-400); Red Blood Cell Count 3.46 X10^6/uL (4.5-5.9); Red Cell Distribution Width 13.2 % (11.6-14.8); White Blood Cell Count 5.5 X10^3/uL (4.5-11.0)
[2022-03-10 06:35] LABS: Alanine Aminotransferase 19 IU/L (<50); Albumin 3.3 g/dL (3.5-5.0); Albumin Globulin Ratio 1.3 (1.0-2.8); Alkaline Phosphatase 63 U/L (38-126); Aspartate Aminotransferase 18 IU/L (17-59); BUN Creatinine Ratio 24.6 (6-22); Bilirubin Total 0.8 mg/dL (0.2-1.3); Blood Urea Nitrogen 16 mg/dL (9-20); Carbon Dioxide 27 mmol/L (22-32); Chloride 95 mmol/L (98-107); Cholesterol 130 mg/dL (140-199); Estimated Glomerular Filt Rate > 60 mL/min (>60); Globulin 2.5 g/dL (1.7-4.1); Glucose 101 mg/dL (80-110); HDL Cholesterol 40 mg/dL (40-60); HEMOLYSIS < 15 (0-50); LDL Cholesterol Calculated 80 mg/dL (<100); Magnesium 1.7 mg/dL (1.6-2.3); Potassium 4.7 mmol/L (3.4-5.1); Sodium 127 mmol/L (137-145); Total Protein 5.8 g/dL (6.3-8.2); Triglycerides 50 mg/dL (35-150)
[2022-03-10 06:46] LABS: Hemoglobin A1C% w Est Avg Glu 5.3 % (4.0-6.0)
[2022-03-10 07:06] LABS: TSH w/ Reflex to FT4 1.37 uIU/mL (0.47-4.68)
--- NOTE | 2022-03-10 07:57 | PM.DS.1 ---
History of Present Illness History of Present Illness Date Patient Seen: 03/10/22 Time Patient Seen: 15:00 Chief complaint: bp low/heart rate irregular Narrative: Troy mireles is a 76-year-old male with a history of hypertension, chronic hyponatremia, obesity, depression/anxiety, GERD, benign prostatic hypertrophy with urinary retention presented to the ED after experiencing a squeezing pain to his bilateral shoulders at the trapezius muscle,that comes & goes, no radiation, unknown trigger, and nothing seemed to resolve it, dizzy, generalized weakness, mild SOB, and near syncope while doing normal activities around his home.? Symptoms did not vincent when he sat down to rest and continued for approximately 2-3 hours.? Patient does note that he plays pickleball which is of form of tennis like activity with a whiffle ball and a smaller court. Patient denied lateralizing weakness, chest pain, pressure, diaphoresis, abd pain,nausea, vomiting, bright red blood/hematochezia, melena, new urinary symptoms, swelling in his extremities, headaches, vision changes, speech issues, swallowing difficulties, balance or coordination issues.? Endorses 3 episodes of diarrhea earlier today, which have resolved, persistent cough productive greenish phlegm-recently started on omperazolefor this.? Patient has not had any other recent medication changes.? Has had bilateral hip surgery, no prior cardiac stents or cardiac or pulmonary surgery.? No illicit, no alcohol quit smoking 12 years ago.? No known drug allergies.? He lives independently with his .? Denies recent illness injury or trauma. At the time of admit patient is asymptomatic, he is resting comfortably in bed in no distress.? Vitals temp 97.4?, BP 138/67, HR 71, R 20, O2 sat 100% on room air.? Mild anemia noted not previously seen on labs HGB 12.6, HCT 36.9, acute on chronic hyponatremia sodium 123 (baseline 127-130), glucose 122, Mag is stable at 1.6, urine sodium 69 normal, COVID negative, troponin x2 WNL, chest x-ray is negative for any acute cardiopulmonary processes.? Patient's EKG sinus rhythm with a rate of 70 first-degree AV block without ST or T-wave changes, repeat EKG unchanged.? Heart Score: 5 Patient admitted for atypical chest pain, acute on chronic hyponatremia. Discharge Providers Provider Date of admission: 03/09/22 17:41 Discharge Date: 03/10/22 Primary care physician: Micheal Pryor DO Consults: 03/09/22 18:38 Consult to Physical Therapy Evaluate & Treat Comment: Physician Instructions: Evaluate and Treat 03/09/22 19:59 Consult to Dietitian, Adult Routine Comment: Reason For Exam: Low Na+, BMI 33.9 Discharge provider: Jose Martin Dyer DO Summary Hospital Course Discharge Diagnosis: 1. Atypical chest pain, acute, present on admission- resolved -patient is stable asymptomatic and resting at this time. Heart Score:5 -I suspect that this is musculoskeletal trapezius pain due to patient playing pickHot Dotball, and not cardiac in nature. -Chest pain protocol-telemetry, MS, Nitro PRN -temp 97.4?, BP 138/67, HR 71, R 20, O2 sat 100% on room air.? -chest x-ray is negative for any acute cardiopulmonary processes.? -EKG sinus rhythm with a rate of 70 first-degree AV block without ST or T-wave changes, repeat EKG unchanged.? Heart Score: 5 Patient admitted for atypical chest pain, acute on chronic hyponatremia. -troponin x2 WNL- repeat 3rd in am -Mag 1.6, potassium 4.4 -exercise stress test returned as normal low risk for study for cardiac source -echo with EF 60-65% and no focal WMA's, however a potential hypoechoic mass present in right atrium which could be consistent with a prominent eustachian valve versus eustachian valve with attached thrombus versus myxoma. Recommend further outpatient workup with possible cardiac MRI to assess further. Beeler to be extremely unlikely to be endocarditis. 2. Mild anemia, acute, present on admission -HGB 12.6, HCT 36.9 -chin hematology labs, monitor for bleeding 3. Hypertension, essential, present on admission -continue losartan, amlodipine 4. Hyponatremia, acute on chronic, present on admission, improved -hyponatremia sodium 123 (baseline 127-130) - urine sodium 69 normal, ordered serum osmolality-pending, lipids, uric acid, BUN 19 -may be related to SIADH from his as SSRI -NS at 80 cc/HR and improved to 127 4. Benign prostatic hypertrophy, chronic, present on admission -continue tamsulosin -bladder scan as needed 5. Depression/anxiety, chronic, present on admission -continue fluoxetine 6. GERD, chronic, present on admission -continue PPI Hospital Course: Troy mireles is a 76-year-old male with a history of hypertension, chronic hyponatremia, obesity, depression/anxiety, GERD, benign prostatic hypertrophy with urinary retention presented to the ED with complaints of atypical chest pain.? Patient had a heart Score of 5, warranting admit for observation to complete echo and trend troponins overnight, as well as mild hydration to return sodium levels to previous baseline. Sodium improved to 127. Exercise stress test non-nuclear was normal and low risk for cardiac cause of CP. Troponins were all negative. His echo was reassuring as well, but did incidentally note a possible right atrial mass which he should have further workup done as outpatient with PCP for possible myxoma. Time Spent with Patient Time spent: Greater than 30 minutes Exam Vital Signs (past 8 hours): - 03/10/22 03:22 03/10/22 02:00 03/10/22 06:00 Temperature 97.2 F L Pulse Rate 63 Respiratory Rate 17 Blood Pressure 114/56 L Pulse Oximetry 95 95 Oxygen Delivery Method Room Air Room Air Oxygen Flow Rate 0 03/10/22 07:20 Temperature Pulse Rate 70 Respiratory Rate Blood Pressure 151/77 H Pulse Oximetry 97 Oxygen Delivery Method Oxygen Flow Rate 0 Oxygen Delivery Method Room Air Oxygen Flow Rate 0 Narrative Exam Narrative: General: Patient is a well-developed, well-nourished in no distress at this time. HEENT: Normocephalic, atraumatic, extraocular muscles intact, oral pharynx is clear and mucous membranes are moist. Neck is supple and symmetric, trachea is midline, no adenopathy, no thyroid enlargement, nontender, no masses palpated. Negative for JVD Chest: Normal AP diameter and contour without kyphoscoliosis, no nasal flaring, retractions, or tachypneic labored Lungs: Auscultation of all lung ferreira are clear without adventitious sounds, wheezes, rhonchi, or rales. Cardio: regular rate and rhythm without murmur, rubs, or gallops, no carotid bruit, no cardiac pulsations present. Abdomen: Soft nontender, negative for organomegaly, or masses. Bowel sounds are present in all 4 quadrants without guarding or rebound, no CVA tenderness. Musculoskeletal: Muscle strength and tone are equal within normal limits, no deformity, crepitus, effusions, cyanosis, clubbing present. Mild bilateral nonpitting edema. Full range of motion intact radial and pedal pulses are normal. Skin: Warm dry and intact without rashes, ulcerations or petechiae. Neuro: Alert and orientated x3, strength is +5/5 in all extremities, sensation to touch intact, no gross deficits noted of cranial nerves. GCS 15 Psych: Patient has a well-kept appearance, appropriate affect, mental status attitude thought context and judgment are appropriate for age. Objective Labs Result Diagrams: 03/10/22 06:09 03/10/22 06:09 Labs: Laboratory Results - last 24 hr 03/09/22 03/09/22 03/09/22 13:15 13:15 14:14 WBC 7.5 RBC 3.87 L Hgb 12.6 L Hct 36.9 L MCV 95.3 MCH 32.4 MCHC 34.0 RDW 13.2 Plt Count 292 Neut % (Auto) 83.0 H Lymph % (Auto) 6.5 L [place] % (Auto) 9.3 Eos % (Auto) 0.8 L Baso % (Auto) 0.4 Neut # (Auto) 6200 Lymph # (Auto) 500 L [place] # (Auto) 700 Eos # (Auto) 100 Baso # (Auto) 0 Sodium 123 L Potassium 4.4 Chloride 91 L Carbon Dioxide 22 BUN 19 Creatinine 0.85 Estimated GFR > 60 BUN/Creatinine Ratio 22.4 H Glucose 122 H Hemoglobin A1c Uric Acid Calcium 8.4 Magnesium 1.6 Total Bilirubin 0.8 AST 22 ALT 22 Alkaline Phosphatase 62 Total Creatine Kinase 44 L CK-MB (CK-2) TNP CK-MB (CK-2) Rel Index TNP Troponin I < 0.012 NT-Pro-B Natriuret Pep Total Protein 6.5 Albumin 3.9 Globulin 2.6 Albumin/Globulin Ratio 1.5 Triglycerides Cholesterol LDL Cholesterol, Calc HDL Cholesterol Lipase 35 TSH Ur Random Sodium SARS-CoV-2 (PCR) Negative 03/09/22 03/09/22 03/09/22 15:52 15:52 15:52 WBC RBC Hgb Hct MCV MCH MCHC RDW Plt Count Neut % (Auto) Lymph % (Auto) [place] % (Auto) Eos % (Auto) Baso % (Auto) Neut # (Auto) Lymph # (Auto) [place] # (Auto) Eos # (Auto) Baso # (Auto) Sodium Potassium Chloride Carbon Dioxide BUN Creatinine Estimated GFR BUN/Creatinine Ratio Glucose Hemoglobin A1c Uric Acid 2.9 L Calcium Magnesium Total Bilirubin AST ALT Alkaline Phosphatase Total Creatine Kinase CK-MB (CK-2) CK-MB (CK-2) Rel Index Troponin I < 0.012 NT-Pro-B Natriuret Pep 35 Total Protein Albumin Globulin Albumin/Globulin Ratio Triglycerides Cholesterol LDL Cholesterol, Calc HDL Cholesterol Lipase TSH Ur Random Sodium SARS-CoV-2 (PCR) 03/09/22 03/09/22 03/10/22 18:15 21:11 06:09 WBC 5.5 RBC 3.46 L Hgb 11.3 L Hct 33.0 L MCV 95.4 MCH 32.7 MCHC 34.3 RDW 13.2 Plt Count 259 Neut % (Auto) 62.8 D Lymph % (Auto) 17.4 L [place] % (Auto) 13.7 Eos % (Auto) 5.3 H Baso % (Auto) 0.8 Neut # (Auto) 3500 Lymph # (Auto) 1000 L [place] # (Auto) 800 Eos # (Auto) 300 Baso # (Auto) 0 Sodium Potassium Chloride Carbon Dioxide BUN Creatinine Estimated GFR BUN/Creatinine Ratio Glucose Hemoglobin A1c Uric Acid Calcium Magnesium Total Bilirubin AST ALT Alkaline Phosphatase Total Creatine Kinase CK-MB (CK-2) CK-MB (CK-2) Rel Index Troponin I < 0.012 NT-Pro-B Natriuret Pep Total Protein Albumin Globulin Albumin/Globulin Ratio Triglycerides Cholesterol LDL Cholesterol, Calc HDL Cholesterol Lipase TSH Ur Random Sodium 69 SARS-CoV-2 (PCR) 03/10/22 03/10/22 03/10/22 06:09 06:09 06:09 WBC RBC Hgb Hct MCV MCH MCHC RDW Plt Count Neut % (Auto) Lymph % (Auto) [place] % (Auto) Eos % (Auto) Baso % (Auto) Neut # (Auto) Lymph # (Auto) [place] # (Auto) Eos # (Auto) Baso # (Auto) Sodium 127 L Potassium 4.7 Chloride 95 L Carbon Dioxide 27 BUN 16 Creatinine 0.65 L Estimated GFR > 60 BUN/Creatinine Ratio 24.6 H Glucose 101 Hemoglobin A1c 5.3 Uric Acid Calcium 8.0 L Magnesium 1.7 Total Bilirubin 0.8 AST 18 ALT 19 Alkaline Phosphatase 63 Total Creatine Kinase CK-MB (CK-2) CK-MB (CK-2) Rel Index Troponin I NT-Pro-B Natriuret Pep Total Protein 5.8 L Albumin 3.3 L Globulin 2.5 Albumin/Globulin Ratio 1.3 Triglycerides 50 Cholesterol 130 L LDL Cholesterol, Calc 80 HDL Cholesterol 40 Lipase TSH 1.37 Ur Random Sodium SARS-CoV-2 (PCR) [facility] Medical History (Updated 03/10/22 @ 00:23 by DEE Manning) 1st degree AV block Atypical nevus of forehead Balance problem BPH (benign prostatic hyperplasia) (Unknown) BPH w urinary obs/LUTS BPPV (benign paroxysmal positional vertigo) Chronic cough Chronic hyponatremia Degenerative joint disease (DJD) of hip (Unknown) Depression (Unknown) FH: bilateral hip replacements Incontinence without sensory awareness Lightheadedness Low back pain Nasal bleeding Obesity (BMI 30-39.9) Obstructive sleep apnea, adult Osteoarthritis (Unknown) Syncope and collapse Urinary incontinence Weight loss counseling, encounter for Surgical History History of hip replacement History of tonsillectomy Status post appendectomy Status post hernia repair Family History Father Heart disease Kidney disease Loud snoring Mother Obesity Hypertension Depression Anxiety Social History marital status: number of children: 4 household members: spouse occupational status: employed 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 Your heart echo was normal other than a possible mass in the right atrium which may be nothing or related to a tumor in the heart. Your PCP will need to work this up further with possible heart MRI or CT. Discharge orders & Medications Prescriptions: Continued solifenacin 5 mg tablet 5 mg PO DAILY Qty: 90 3RF amlodipine 5 mg tablet 5 mg PO DAILY tamsulosin 0.4 mg capsule 0.4 mg PO BEDTIME omeprazole 20 mg capsule,delayed release(DR/EC) 20 mg PO BID losartan 100 mg tablet 100 mg PO DAILY fluoxetine 20 mg capsule 80 mg PO DAILY Follow up/Referrals: Micheal Pryor DO [Primary Care Provider] - Discharge Data Primary Care Provider: Micheal Pryor Attending Provider: Fred Pacheco VTE Deep Vein Thrombosis/Pulmonary Embolism Present on Admission: No
[2022-03-10 09:29] LABS: Appearance Urine UA CLEAR; Bilirubin Urine UA NEGATIVE (NEGATIVE); Color Urine UA YELLOW; Glucose Urine UA NEGATIVE (Negative); Ketones Urine UA NEGATIVE (NEGATIVE); Leukocyte Esterase Urine UA NEGATIVE (NEGATIVE); Nitrite Urine UA NEGATIVE (Negative); Occult Blood Urine UA NEGATIVE (Negative); Protein Urine UA NEGATIVE (Negative); Urobilinogen Urine UA 0.2 E.U./dL (0.2); pH Urine UA 6.5 (4.5-8.0)
--- NOTE | 2022-03-10 09:35 | PT.IIE ---
Surgical History (Last Reviewed 03/10/22 @ 00:23 by JOSIE ManningRAFAEL) History of hip replacement History of tonsillectomy Status post appendectomy Status post hernia repair Medical History (Last Updated 03/10/22 @ 00:23 by JOSIE ManningRAFAEL) 1st degree AV block Atypical nevus of forehead Balance problem BPH (benign prostatic hyperplasia) (Unknown) BPH w urinary obs/LUTS BPPV (benign paroxysmal positional vertigo) Chronic cough Chronic hyponatremia Degenerative joint disease (DJD) of hip (Unknown) Depression (Unknown) FH: bilateral hip replacements Incontinence without sensory awareness Lightheadedness Low back pain Nasal bleeding Obesity (BMI 30-39.9) Obstructive sleep apnea, adult Osteoarthritis (Unknown) Syncope and collapse Urinary incontinence Weight loss counseling, encounter for Physical Therapy Inpatient Evaluation/Re-Eval M1 PT/OT-IP Prior Functional Status Start: 03/10/22 09:54 Freq: NEEDED Status: Active Protocol: Document 03/10/22 09:35 DLM (Rec: 03/10/22 10:08 DL [id number]) Medical Review Prior Functional Status Medical History Reviewed Yes Diet/Fluid Consistency Regular Communication WNL Mobility and Gait Independent without device, plays [email or web address] ball, he reports his balance is not as good as it used to be Activities of Daily Living and IADL's 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 2 with rail Home Equipment Grab Bars Near Toilet,Grab Bars In Shower Additional Social History Comment his is active and healthy , pt reports they have a bedroom on the main floor of house to use as needed M2 PT-IP Current Condition Start: 03/10/22 09:54 Freq: NEEDED Status: Active Protocol: Document 03/10/22 09:35 DLM (Rec: 03/10/22 10:08 DLM [id number]) Physical Therapy Current Condition Current Condition Evaluation Date 03/10/22 Treatment Diagnosis atypical chest pain Onset Date 03/09/22 M3 PT-IP Subjective Start: 03/10/22 09:54 Freq: NEEDED Status: Active Protocol: Document 03/10/22 09:35 DLM (Rec: 03/10/22 10:08 DLM [id number]) Subjective Physical Therapy Visit Type Type Initial Evaluation Visit Start Time 09:15 Visit Stop Time 09:35 Total Visit Minutes 20 Number of SUPPORT CLERK Visits 0 Physical Therapy Visit Comments Patient Comments He is having no chest/shoulder area pain today. He had his stress test this morning. Patient Goals Discharge home Therapy Pain Assessment Pain When Pain Assessed At Rest Pain Present Pain Present Denied Pain M4 PT-IP Mobility and Gait Start: 03/10/22 09:54 Freq: NEEDED Status: Active Protocol: Document 03/10/22 09:35 DL (Rec: 03/10/22 10:08 [facility] [id number]) PT-Bed Mobility Assessment Rolling Level of Assist Independent Supine to Sit Supine to Sit Independent Sit to Supine Sit to Supine Independent Scooting Scooting to Edge of Bed Independent Scooting Up and Down in Bed Independent PT-Transfer Assessment Sit to and From Stand Sit to and from Stand Independent Equipment Transfer Assistive Device None Transfers Transfer Destination Bed Transfer Technique Stand Step Pivot Transfer Ability Level of Assist Independent Comments Mobility Comments he describes mild dizziness when standing that he reports is not going away nor is it getting worse, he describes it as his head feeling funny but not a passing out feeling Gait Assessment Gait Gait Assistance Required: Standby Assistance Distance (Feet) 20 Assistive Devices Assistive Device None Gait Deviations General Gait Pattern Wide Based Gait Factors Limiting Gait Function Factors Limiting Gait Function Decreased Activity Tolerance Comments Gait Comments he describes feeling dizzy so limited his distance to in the room Stair Climbing Assessment Comments Stair Climbing Comments he reports no difficulty doing stairs at home PT-Balance Assessment Sitting Balance and Reactions Static Sitting Balance Ability Normal Dynamic Sitting Balance Ability Normal Standing Balance and Reactions Static Standing Balance Ability Good Dynamic Standing Balance Ability Good Device Used none M5 PT-IP Objective Assessments Start: 03/10/22 09:54 Freq: NEEDED Status: Active Protocol: Document 03/10/22 09:35 DLM (Rec: 03/10/22 10:08 [facility] [id number]) Orientation Orientation/Cognition Level of Alertness Alert Orientation Name,Age,Birthday,Month,Date, Year,Day of Week,Place, Situation Language Function Ability No Deficits Noted Safety Awareness Understands Safety Issues Memory Description No Deficits Noted Gross Range of Motion Upper Extremity ROM Assessment Within Functional Limits Impairments mild end range shoulder stiffness but no joint pain Lower Extremity ROM Assessment Within Functional Limits Strength Upper Extremity Strength Assessment Within Functional Limits Lower Extremity Strength Assessment Within Functional Limits Coordination Assessment Assessment Pronation/Supination Test Normal Performance Foot Tapping Test Minimal Impairment Sensation Assessment Sensation Gross Sensation WNL Comments Sensation Comments he reports no numbness/ tingling in hands/feet Muscle Tone Muscle Tone WNL Yes M6 PT-IP Treatment Start: 03/10/22 09:54 Freq: NEEDED Status: Active Protocol: Document 03/10/22 09:35 DLM (Rec: 03/10/22 10:08 DLM [id number]) Physical Therapy Treatment Education Education Provided Safety Other Treatments Other Treatment Performed discussed the option of attending community based balance classes to address his feelings of declining balance M7 PT-IP Assessment and Plan Start: 03/10/22 09:54 Freq: NEEDED Status: Active Protocol: Document 03/10/22 09:35 DLM (Rec: 03/10/22 10:08 DLM [id number]) PT Summary Assessment and Plan Potential Rehabilitation Potential Good Status of Condition at Evaluation Evolving Summary Impairments Activity Tolerance Assessment Summary Mynor is alert and resting in bed. He reports no chest/ shoulder pain today. He complains of dizziness in standing and during gait this visit. In sitting his BP 115/ 63 and HR 99. Noted this BP is much lower than the one the nurses got earlier today (BP 151/77 and HR 70). Pt reports the BP this visit is lower than what he normally has at home. He does describe having dizzy episodes when playing pickle ball that resolve with seated rest breaks. His mobility and gait appears to be at his baseline. Caution used during this visit due to his ongoing dizziness. No skilled physical therapy needs identified at this time. Recommend nursing continue to monitor his dizziness. Pt has been up ambulating independently in the room with nursing during this admission . He has a supportive at home who assists him as needed . Frequency of Treatment Frequency Of Treatment Discharge Precautions Other Precautions monitor dizziness Recommendations To Nursing Amount of Assist Needed Standby Assistance Discharge Recommendations PT Discharge Recommendations Home Transportation Needs at Discharge Private Vehicle
[2022-03-10 09:40] LABS: Bacteria Urine None Seen; Culture Indicated Urine Cult Not Indicated; RBC Urine None Seen (0-5/HPF); Urine Comments Microscopic Normal; WBC Urine None Seen (0-5/HPF)
[2022-03-10] MEDS: ENOXAPARIN 40 MG/0.4 ML SYRINGE SUBCUT (10:10)
[2022-03-10] MEDS: ASPIRIN EC 81 MG TABLET PO (10:10)
--- NOTE | 2022-03-10 11:45 | DIET.CONS2 ---
Dietary Inpatient Consultation Note Admission Date: 03/09/2022 17:41 Pt admitted for chest px rule out found to have musculoskeletal strain as source of px. RD consulted for pt with BMI 33.9. Pt states he is participating in pickleball as source of physical activity for enjoyment and exercise. Reiterated good work with physical activity and to continue within tolerance. Diet: 03/09/22 Dinner Heart Healthy Diet Diet Modifications: Electronically Signed by: Shanell Dejesus 03/10/22 11:45 Clinical Dietitian [address] [id number]
--- NOTE | 2022-03-10 15:19 | CM.DANOTE ---
Patient is a 76 yo male who was admitted on 03/09/22 for Chest Pain. Pt has [facility] for insurance and her PCP is Dr. Micehal Pryor. EMR was reviewed. Per MD, pt with hx of hypertension, depression, anxiety and admitted for chest pain r/o and hyponatremia. Per test results, pt medically stable to d/c home today with no identified barriers to discharge. Pt lives in [place] with his and is active and independent at baseline and plays sports and drives and does not use DME for ambulation. Both pt and spouse drive and do not anticipate any needs and preference is home this afternoon. Plan: patient to discharge home today via spouse POV and outpt follow up. No SW needs at this time. LANIE Payton
--- NOTE | 2022-03-10 15:30 | PC.NURSE ---
Pt is A&Ox3, VSS, afebrile On RA. He denies any CP, SOB or dizziness. He verbalizes understanding and is in agreement with echo and stress test planned for today. He is cleared for discharge pending testing today. MD at bedside reviewing results with patient and recommending a follow up with his PCP to get MRI/CT of the heart to r/o mass. He acknowledges understanding and states he has already scheduled an appointment up on review of the discharge information. He is escorted to private vehicle which he drove here with all of his belongings at 1445 this afternoon.
--- NOTE | 2022-03-10 20:48 | DI.NM.S_ITS ---
DATE OF SERVICE: 03/10/2022 PROCEDURE: Exercise stress test. INDICATION: Chest pain with underlying hypertension and bilateral shoulder pain. CARDIAC STRESS: The patient underwent exercise stress test under the supervision of an attending staff. He walked on Surendra protocol for 6 minutes, achieved 103 percent of target heart rate, 7 METs of workload and CHEVY positive 1 percent. Resting blood pressure 140/74 and peak blood pressure 182/80 mmHg. Baseline rhythm was sinus. During exercise and stress, no ischemic changes seen. The patient has occasional PVCs and ventricular couplets without any ventricular tachycardia and rare PACs. No chest pain, however. The patient had mild bilateral shoulder tightness during peak exercise without any ischemic changes that time. It got resolved in the immediate recovery. Also, has baseline first-degree AV block. No complex arrhythmias seen. CONCLUSION: Exercise stress test is negative for inducible ischemia. Normal hemodynamic response. Achieved 7 metabolic equivalents of workload and functional aerobic impairment positive 1 percent. No complex arrhythmias, other than occasional premature ventricular contractions and ventricular couplet and rare premature atrial contractions. At peak exercise, mild bilateral shoulder tightness, which got resolved in recovery. Overall low-risk exercise stress test. Correlate clinically. Troy Tineo - NATACHA/brooke/nadira doc#: [id number]/job#: [id number] dd: 03/10/2022 12:53:00 dt: 03/10/2022 20:36:00 DICTATING /COPIES TO: Vesna Hernandez MD COPIES MNE: MADELIN;
[2022-03-11 16:40] LABS: Osmolality, Serum 265 mOsmol/kg (280-301)
== END 2022-03-10 14:45 | disposition home or self-care (01) ==
LOC: ED 15:52 → AC 17:42
PROVIDERS: Nurse Practitioner Family; Admitting Provider Internal Medicine; Emergency Provider Emergency Medicine; Family Provider Family Medicine; PCP Family Medicine; Referring Provider Emergency Medicine; Visit Provider Internal Medicine
DX: R42 Dizziness and giddiness (principal); I10 Essential (primary) hypertension; E87.1 Hypo-osmolality and hyponatremia; F41.9 Anxiety disorder, unspecified; F32.A Depression, unspecified; R07.89 Other chest pain; D64.9 Anemia, unspecified; K21.9 Gastro-esophageal reflux disease without esophagitis; N40.1 Benign prostatic hyperplasia with lower urinary tract symptoms; R33.8 Other retention of urine; E66.9 Obesity, unspecified; Z20.822 Contact with and (suspected) exposure to COVID-19
CPT/HCPCS: 36415; 71045; 80053; 80061; 81001; 82550; 83036; 83690; 83735; 83880; 83930; 84300; 84443; 84484; 84550; 85025; 87635; 93005; 93010; 93017; 93306; 96372; 97161; 99284; C9803; G0378; J1650

== ENCOUNTER → 2022-05-13 15:51 | Outpatient (CLI) | payer MEDICARE, SELFPAY ==
[2022-03-09 18:14] VITALS: BMI 33.8
--- NOTE | 2022-05-13 15:53 | DI.CT.S_ITS ---
PROCEDURE: CT LUNG LOW DOSE SCREENING INDICATIONS: smoking history TECHNIQUE: Noncontrast 2.0-2.5 mm thick sections acquired from the pulmonary apices to the posterior costophrenic angles. 7 mm thick axial MIP, and 5 mm coronal and sagittal reformats were then acquired. A low radiation dose technique was utilized. COMPARISON: None. FINDINGS: Image quality: Diagnostic, given the low radiation dose technique. Lungs and pleura: Mild centrilobular emphysematous changes. No suspicious lung nodules or masses. No consolidations or pleural effusions. Mild bronchial wall thickening centrally in the left lower lobes slightly narrowing left lower lobe peripheral airways. Airways are otherwise patent. Mediastinum: Heart size is normal. Moderate coronary artery and aortic valvular calcification. No pericardial effusion. No mediastinal adenopathy by size criteria. Thoracic aorta and central pulmonary arteries are normal in size. Esophagus is normal in caliber. No hiatal hernia. Bones and chest wall: No suspicious bony lesions. Mild degenerative endplate spurs in the thoracic spine. No vertebral body compression fractures. No axillary or supraclavicular adenopathy by size criteria. Thyroid gland is partially imaged in the imaged portion appears normal.. Abdomen: Visualized upper abdomen solid organs and bowel loops appear normal in the absence of contrast. IMPRESSION: 1. No suspicious lung nodules. LUNG-RADS one; Continue annual low-dose chest CT screening as long as the patient meets established criteria. 2. Moderate coronary artery calcification. Dictated by: Rosibel Wiseman M.D. on 05/14/2022 at 9:41 Approved by: Rosibel Wiseman M.D. on 05/14/2022 at 9:58
== END ==
PROVIDERS: Family Provider Family Medicine; PCP Family Medicine; Referring Provider Family Medicine; Visit Provider Family Medicine
DX: J41.1 Mucopurulent chronic bronchitis (principal); Z87.891 Personal history of nicotine dependence
CPT/HCPCS: 71250

== ENCOUNTER → 2022-07-21 17:59 | Outpatient (CLI) | payer MEDICARE, SELFPAY ==
[2022-03-09 18:14] VITALS: BMI 33.8
== END ==
PROVIDERS: Family Provider Family Medicine; PCP Family Medicine; Visit Provider Physician Assistant
DX: J02.9 Acute pharyngitis, unspecified (principal)
CPT/HCPCS: 87070

== ENCOUNTER → 2022-07-30 11:33 | Outpatient (CLI) | payer MEDICARE, SELFPAY ==
[2022-03-09 18:14] VITALS: BMI 33.8
--- NOTE | 2022-07-30 11:39 | DI.RAD.S_ITS ---
PROCEDURE: XR CHEST 2V INDICATIONS: Cough TECHNIQUE: 2 views of the chest were acquired. COMPARISON: [facility], CR, XR CHEST 1V, 03/09/2022, 13:30. [facility], CR, XR CHEST 2V, 11/20/2021, 12:09. FINDINGS: Surgical changes and devices: None. Lungs and pleura: Lungs are clear. No pleural effusions or pneumothorax. Mediastinum: Mediastinal contours are normal. Heart size is normal. Bones and chest wall: No suspicious bony abnormalities. Soft tissues appear unremarkable. IMPRESSION: No acute cardiopulmonary process. Dictated by: Barry White M.D. on 07/30/2022 at 12:25 Approved by: Barry White M.D. on 07/30/2022 at 12:25
== END ==
PROVIDERS: Family Provider Family Medicine; PCP Family Medicine; Referring Provider Nurse Practitioner Family; Visit Provider Nurse Practitioner Family
DX: R05.9 Cough, unspecified (principal)
CPT/HCPCS: 71046

== ENCOUNTER → 2022-08-31 12:43 | Outpatient (CLI) | payer MEDICARE, SELFPAY ==
[2022-03-09 18:14] VITALS: BMI 33.8
[2022-08-31 14:03] LABS: Prostate Specific Antigen 1.15 ng/mL (0.10-4.00)
== END ==
PROVIDERS: Family Provider Family Medicine; PCP Family Medicine; Referring Provider Specialist; Visit Provider Specialist
DX: N40.1 Benign prostatic hyperplasia with lower urinary tract symptoms (principal); N13.8 Other obstructive and reflux uropathy
CPT/HCPCS: 36415; 84153

== ENCOUNTER → 2022-09-11 14:58 | Outpatient (CLI) | payer MEDICARE, SELFPAY ==
[2022-03-09 18:14] VITALS: BMI 33.8
--- NOTE | 2022-09-17 10:36 | P.PFT.S_ITS ---
Pulmonary Function Test Referral & Results Results: The spirometry demonstrates an FVC of 2.79 L which is 75% of predicted. The FEV1 was measured at 2.18 L which is 82% of predicted. The FEV1/FVC ratio was 78 which is 108% of predicted. Following the administration of bronchodilator there was a 39% improvement in FEF 25-75%. Lung volumes show an SVC of 2.89 L which is 71% of predicted. The diffusing capacity was measured at 22.24 which is 78% of predicted. No hemoglobin value was provided, so no correction for potential anemia could be made, if appropriate. The maximum voluntary ventilation was reduced Interpretation: This study demonstrates mild obstructive lung disease based on minimal reduction FEV1 although FEV1/FVC ratio is preserved. Shape a flow volume loop also supports the presence of some degree of obstructive lung disease and there is evidence of some minimal benefit in small airway flow after bronchodilator as noted above based on improvement in FEF 25-75% There is a [id number] reduction in lung volumes suggesting the presence of mild restrictive lung disease which may explain some of the abnormality of the FEV1 above There is also mild reduction diffusing capacity suggesting the possibility of di sease at the capillary alveolar level, unless patient is anemic as above Clinical correlation suggested
== END ==
PROVIDERS: Family Provider Family Medicine; PCP Family Medicine; Referring Provider Family Medicine; Visit Provider Family Medicine
DX: R06.02 Shortness of breath (principal); R05.9 Cough, unspecified; Z87.891 Personal history of nicotine dependence; J98.8 Other specified respiratory disorders
CPT/HCPCS: 94060; 94726; 94729

== ENCOUNTER 2022-10-16 09:02 | Emergency (ER) | payer MEDICARE, SELFPAY ==
[2022-03-09 18:14] VITALS: BMI 33.8
[2022-10-16 09:07] VITALS: BP 196/84; PULSE 70; RESP 16; TEMP 36.9; O2SAT 97; BMI 33.4
--- NOTE | 2022-10-16 09:08 | DI.RAD.S_ITS ---
PROCEDURE: XR FINGER RT MIN 2V INDICATIONS: fall out of bed, appears deformed TECHNIQUE: AP hand, 2 views of the 3 finger(s) acquired. COMPARISON: None. FINDINGS: Bones: There is posterior dislocation at the 2nd proximal interphalangeal joint. No suspicious bony lesions. Osteopenia. Mild osteoarthritic changes. Soft tissues: No suspicious soft tissue calcifications. Soft tissue swelling at the base of the 2nd finger. IMPRESSION: Dislocation of the 2nd finger at the proximal interphalangeal joint. Dictated by: Avril Damon M.D. on 10/16/2022 at 9:28 Approved by: Avril Damon M.D. on 10/16/2022 at 9:29
--- NOTE | 2022-10-16 09:20 | ED.UPPEXIN ---
HPI - Extremity Injury (Upper) General Chief Complaint: Extremity Injury, Upper Stated Complaint: poss broken finger Time Seen by Provider: 10/16/22 09:09 Source: patient and RN notes reviewed Mode of arrival: Ambulatory Limitations: no limitations History of Present Illness HPI narrative: This is a 77-year-old male with history of chronic hyponatremia, hypertension, anxiety/depression urinary retention. Patient states he rolled over in bed this morning was closer to the edge of the bed was then he realized and fell onto the floor. He states his back has a little bit tweaked but not anything major. His main complaint is his 2nd finger on his right hand has obvious deformity. He thinks he did hit his head but states it was very light. He did not take any aspirin or blood thinners. Denies headache, no dizziness, no chest pain shortness of breath, no other GI or urinary symptoms. Patient denies any numbness or tingling in extremities or his finger. He can not bend it at the middle interphalangeal joint he can bend at the proximal and distal ends. Patient states no aspirin, Plavix or other thinners. Has had prior bilateral hip surgery, quit smoking 13 years ago, no alcohol, no illicit. No known drug allergies. Lives independently. Related Data Previous Rx's Medication Instructions Recorded albuterol sulfate 90 mcg/actuation 2 puff inhalation Q6H PRN 04/16/22 aerosol inhaler (ProAir HFA) shortness of breath or wheezing #8.5 grams salmeterol 50 mcg/dose blister 1 inh inhalation BID #60 ea 05/19/22 powder for inhalation fluoxetine 40 mg capsule 80 mg PO DAILY #180 caps 06/03/22 tamsulosin 0.4 mg capsule See Rx Instructions .Route 07/01/22 .COMPLEX #90 caps tiotropium bromide 2.5 2 inh inhalation QAM #4 grams 09/02/22 mcg/actuation mist for inhalation solifenacin 5 mg tablet 5 mg PO DAILY #30 tabs 09/17/22 losartan 100 mg tablet See Rx Instructions .Route 09/18/22 .COMPLEX #90 tabs amlodipine 5 mg tablet See Rx Instructions .Route 09/22/22 .COMPLEX #90 tabs Allergies Allergy/AdvReac Type Severity Reaction Status Date / Time Neoprene AdvReac rash Uncoded 09/22/22 10:16 Review of Systems Review of Systems ROS Unobtainable: All systems reviewed & are unremarkable except as noted in HPI and below Patient History Medical History 1st degree AV block Abnormal echocardiogram findings without diagnosis Atypical nevus of forehead Balance problem BPH (benign prostatic hyperplasia) (Unknown) BPH w urinary obs/LUTS BPPV (benign paroxysmal positional vertigo) Chronic cough Chronic hyponatremia COPD (chronic obstructive pulmonary disease) De Quervain's tenosynovitis, right Degenerative joint disease (DJD) of hip (Unknown) Depression (Unknown) WEISS (dyspnea on exertion) Dupuytren's contracture of right hand FH: bilateral hip replacements Hearing difficulty Hearing loss Hypotension Incontinence without sensory awareness Lightheadedness Low back pain Nasal bleeding Obesity (BMI 30-39.9) Obstructive sleep apnea, adult Osteoarthritis (Unknown) Stopped smoking with greater than 40 pack year history Syncope and collapse Upper extremity somatic dysfunction Urinary incontinence Weight loss counseling, encounter for Surgical History History of hip replacement History of tonsillectomy Status post appendectomy Status post hernia repair Family History Father Heart disease Kidney disease Loud snoring Mother Obesity Hypertension Depression Anxiety Social History marital status: number of children: 4 household members: spouse occupational status: employed 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 HEENT: Head normocephalic, atraumatic, EOMI, pupils reactive, face symmetric, moist mucous membranes NECK: Supple, full range of motion, no cervical vertebral tenderness. CARDIOVASCULAR: Regular rate and rhythm without murmurs, rubs or gallops. RESPIRATORY: Breath sounds equal bilaterally, no wheezes rales or rhonchi. ABDOMEN: Soft, nontender. Normoactive bowel sounds all 4 quadrants. No guarding or rebound, rigidity, no mass : No CVA tenderness EXTREMITIES: Normal range of motion, no clubbing or edema. With the exception of the 2nd finger on the right hand it is slightly angulated without flexion at the minorly interphalangeal joint. Cap refill less than 2 seconds in all 5 fingers. Normal range of motion at the distal interphalangeal joint and at the proximal joint. Neurovascularly intact NEUROLOGICAL: Cranial nerves II through XII grossly intact. Moving all extremities SKIN: Warm, dry, no petechiae, no rashes or lesions. Initial Vital Signs Initial Vital Signs: Vital Signs Temperature 98.4 F 10/16/22 09:07 Pulse Rate 70 10/16/22 09:07 Respiratory Rate 16 10/16/22 09:07 Blood Pressure 196/84 H 10/16/22 09:07 Pulse Oximetry 97 10/16/22 09:07 Oxygen Delivery Method Room Air 10/16/22 09:07 Procedures Nerve Block Nerve Block 1: Local Anesthetic: lidocaine 1% Amount of anesthesia used (mL): 4 Side: right Nerve Blocks: digital Procedure Successful: Yes Patient Tolerated Procedure: Well and No complications Complications: none Orthopedic Joint Reduction Joint #1: Side: right Joint Reduction Location: finger (MIP) Analgesia: none (digital block) Local Anesthesia: lidocaine 1% Amount of anesthesic used (mL): 4 Technique used: traction/counter-traction and direct manipulation Post-reduction neuro exam: intact Post-reduction vascular: intact Post Reduction X-Ray Obtained: Yes Post Reduction X-Ray Results: reduced Splint Applied: Yes Patient Tolerated Procedure: Well and No complications Course Orders Ordered: ED Orders 10/16/22 09:43 XR finger RT min 2V Stat Discontinued Medications Lidocaine HCl (Lidocaine 1% (Pf) 5 Ml) 5 ml INJ NOW ONE Stop: 10/16/22 09:43 Last Admin: 10/16/22 09:44 Dose: 5 ml Documented By: CTS Vital Signs Vital signs: Vital Signs - 8 hr 10/16/22 09:07 Temperature 98.4 F Pulse Rate 70 Respiratory Rate 16 Blood Pressure 196/84 H Pulse Oximetry 97 Oxygen Delivery Method Room Air MDM - Extremity Injury (Upper) Imaging Data Extremity x-ray #1: Radiologist's Impression: Close Finger X-Ray 10/16/22 Finger X-Ray (Signed) MarisolRita reddyrachael - 10/16/22 PFT Result 09/11/22 PFT Result 09/11/22 Chest X-Ray (Signed) Barry White - 07/30/22 CT Lung (Signed) Rosibel Wiseman - 05/13/22 DI Result CC 03/30/22 Radiology Report (Cancelled) Vesna Hernandez - 03/10/22 Echocardiogram Ultrasound (Signed) Barby Vale - 03/09/22 Telemetry Strips 03/09/22 Chest X-Ray (Signed) Summer Kelly - 03/09/22 EKG Rpt. 03/09/22 Chest X-Ray (Signed) Kash Perea - 11/20/21 Wrist X-Ray (Signed) Call,Silvano - 09/10/20 Hand X-Ray (Signed) Call,Silvano - 09/10/20 Ribs X-Ray (Signed) Koko Palma - 08/31/20 Brain MRI (Signed) Leatha Munoz - 01/08/20 Telemetry Strips 01/06/[address] (Signed) Kash Perea - 01/06/20 Echocardiogram Ultrasound (Signed) Andreas Fitzgerald - 04/24/19 Radiology Report (Cancelled) Talat Marcelino - 04/15/19 Myocardial Perfusion Scan Nuc Med (Signed) Talat Marcelino - 04/15/19 EKG Rpt. 03/30/19 EKG Rpt. 08/16/18 Launch?[address] [address] XRay Report Signed Patient: Troy Tineo MR#: [id number] : 1945 Acct:[id number] Age/Sex: 77 / M Date of Service: 10/16/22 Loc: ED Accession Number: [id number] ?? Procedure: XR finger RT min 2V Ordering Provider: Arlene Nails D.O. PROCEDURE:? XR FINGER RT MIN 2V ? INDICATIONS:? fall out of bed, appears deformed ? TECHNIQUE:? AP hand, 2 views of the 3 finger(s) acquired.? ? COMPARISON:? None. ? FINDINGS:? ? Bones:? There is posterior dislocation at the 2nd proximal interphalangeal joint.? No suspicious bony lesions.? Osteopenia.? Mild osteoarthritic changes.? ? Soft tissues:? No suspicious soft tissue calcifications.? Soft tissue swelling at the base of the 2nd finger. ? IMPRESSION:? Dislocation of the 2nd finger at the proximal interphalangeal joint. ? ? Dictated by: Avril Damon M.D. on 10/16/2022 at 9:28 ? ? Approved by: Avril Damon M.D. on 10/16/2022 at 9:29?? post reduc: Radiologist's Impression: Troy Tineo??77??M??1945 ? Allergy/Adv: [Neoprene] Close Finger X-Ray (Signed) Leatha Munoz - 10/16/22 Finger X-Ray (Signed) Avril Damon - 10/16/22 PFT Result 09/11/22 PFT Result 09/11/22 Chest X-Ray (Signed) Barry White - 07/30/22 CT Lung (Signed) Rosibel Wiseman - 05/13/22 DI Result CC 03/30/22 Radiology Report (Cancelled) Vesna Hernandez - 03/10/22 Echocardiogram Ultrasound (Signed) Barby Vale - 03/09/22 Telemetry Strips 03/09/22 Chest X-Ray (Signed) Summer Kelly - 03/09/22 EKG Rpt. 03/09/22 Chest X-Ray (Signed) Kash Perea - 11/20/21 Wrist X-Ray (Signed) CallSilvano - 09/10/20 Hand X-Ray (Signed) Call,Silvano - 09/10/20 Ribs X-Ray (Signed) Koko Palma - 08/31/20 Brain MRI (Signed) Leatha Munoz - 01/08/20 Telemetry Strips 01/06/[address] (Signed) Kash Perea - 01/06/20 Echocardiogram Ultrasound (Signed) Andreas Fitzgerald - 04/24/19 Radiology Report (Cancelled) Talat Marcelino - 04/15/19 Myocardial Perfusion Scan Nuc Med (Signed) Talat Marcelino - 04/15/19 EKG Rpt. 03/30/19 EKG Rpt. 08/16/18 Launch?Image [address] [address] XRay Report Signed Patient: Troy Tineo MR#: [id number] : 1945 Acct:[id number] Age/Sex: 77 / M Date of Service: 10/16/22 Loc: ED Accession Number: [id number] ?? Procedure: XR finger RT min 2V Ordering Provider: Arlene Nails D.O. PROCEDURE:? XR FINGER RT MIN 2V ? INDICATIONS:? post reduction film ? TECHNIQUE:? AP hand, 2 views of the 2nd finger(s) acquired.? ? COMPARISON:? [facility], CR, XR FINGER RT MIN 2V, 10/16/2022, 9:18. ? FINDINGS:? ? Bones:? There has been interval reduction of dislocation at the 2nd PIP joint.? There is good anatomic alignment.? No visualized fracture. ? Soft tissues:? No suspicious soft tissue calcifications.? ? IMPRESSION:? Interval reduction with good anatomic alignment. No visualized acute fracture or dislocation. However, if clinical concern and/or pain persist, short interval imaging followup in 7-10 days is recommended, as occult injury cannot be definitively excluded. ? ? Dictated by: Leatha Munoz M.D. on 10/16/2022 at 11:06 ? ? Approved by: Leatha Munoz M.D. on 10/16/2022 at 11:07?? MDM Narrative Medical decision making narrative: This is a 77-year-old male who presents with complaint of finger dislocation he had rolled out of bed. He did hit his head he is not anticoagulated he denies any other symptoms. Defers additional workup for this. Has some low back pain but no other red flag symptoms is ambulating without issue. His main concern is his finger today is obviously deformed. Finger x-ray shows dislocation. Offered for reduction with or without digital anesthesia. Patient elects to have local anesthesia digital block at the joint was performed patient tolerated well. Had direct manipulation traction with improved alignment and resolution of pain. Repeat imaging does not show fracture. Patient was splinted, neurovascularly intact pre and post and patient discharged home with return precautions. Discharge Plan Departure Patient Disposition: Home Clinical Impression: Dislocation closed, finger, Fall Instructions: DI for Finger Dislocation Activity Restrictions/Additional Instructions: Follow-up with your physician in the next week if your symptoms are not significantly improved or if you are having persistent pain. Make sure you keep area with the injections clean and dry, wash once or twice daily and pat dry. Splint Care: Keep splint clean and dry. Elevated affected body part to decrease swelling. OK to use ice pack on the affected body part. Use for 15-20 minutes each time, for 5-6x per day. If you develop worsening pain, numbness, tingling, discoloration of the affected body part, loosen the splint by loosening the MONIQUE wrap, and either see your doctor for an urgent re-assessment, or return to the Emergency Department. Return to the Emergency Department for any new or worsening symptoms. Prescriptions: No Action fluoxetine 40 mg capsule 80 mg PO DAILY Qty: 180 0RF tamsulosin 0.4 mg capsule See Rx Instructions .ROUTE .COMPLEX Qty: 90 3RF Dose Instruction: TAKE 1 CAPSULE BY MOUTH DAILY Rx Instructions: TAKE 1 CAPSULE BY MOUTH DAILY solifenacin 5 mg tablet 5 mg PO DAILY Qty: 30 6RF losartan 100 mg tablet See Rx Instructions .ROUTE .COMPLEX Qty: 90 3RF Dose Instruction: TAKE 1 TABLET BY MOUTH DAILY Rx Instructions: TAKE 1 TABLET BY MOUTH DAILY salmeterol 50 mcg/dose blister with device 1 inh inhalation BID Qty: 60 11RF tiotropium bromide 2.5 mcg/actuation mist 2 inh inhalation QAM Qty: 4 5RF amlodipine 5 mg tablet See Rx Instructions .ROUTE .COMPLEX Qty: 90 3RF Dose Instruction: TAKE 1 TABLET BY MOUTH DAILY Rx Instructions: TAKE 1 TABLET BY MOUTH DAILY albuterol sulfate [ProAir HFA] 90 mcg/actuation HFA aerosol inhaler 2 puff inhalation Q6H PRN (Reason: shortness of breath or wheezing) Qty: 8.5 7RF Referrals: Micheal Pryor DO [Primary Care Provider] - Stand Alone Forms: Patient Portal/API
--- NOTE | 2022-10-16 09:43 | DI.RAD.S_ITS ---
PROCEDURE: XR FINGER RT MIN 2V INDICATIONS: post reduction film TECHNIQUE: AP hand, 2 views of the 2nd finger(s) acquired. COMPARISON: [facility], , XR FINGER RT MIN 2V, 10/16/2022, 9:18. FINDINGS: Bones: There has been interval reduction of dislocation at the 2nd PIP joint. There is good anatomic alignment. No visualized fracture. Soft tissues: No suspicious soft tissue calcifications. IMPRESSION: Interval reduction with good anatomic alignment. No visualized acute fracture or dislocation. However, if clinical concern and/or pain persist, short interval imaging followup in 7-10 days is recommended, as occult injury cannot be definitively excluded. Dictated by: Leatha Munoz M.D. on 10/16/2022 at 11:06 Approved by: Leatha Munoz M.D. on 10/16/2022 at 11:07
[2022-10-16] MEDS: LIDOCAINE 1% (PF) 5 ML INJ (09:44)
== END 2022-10-16 10:11 | disposition home or self-care (01) ==
PROVIDERS: Emergency Provider Emergency Medicine; Family Provider Family Medicine; PCP Family Medicine
DX: S63.280A Dislocation of proximal interphalangeal joint of right index finger, initial encounter (principal); W06.XXXA Fall from bed, initial encounter
CPT/HCPCS: 26770; 73140; 99283; 99284

== ENCOUNTER → 2022-12-02 18:03 | Outpatient (CLI) | payer MEDICARE, SELFPAY ==
[2022-03-09 18:14] VITALS: BMI 33.8
--- NOTE | 2022-12-02 18:08 | DI.RAD.S_ITS ---
PROCEDURE: XR CHEST 2V INDICATIONS: Shortness of breath TECHNIQUE: 2 views of the chest were acquired. COMPARISON: [facility], , XR CHEST 2V, 07/30/2022, 11:49. [facility], [place], XR CHEST 2V, 11/20/2021, 12:09. FINDINGS: Surgical changes and devices: None. Lungs and pleura: Lungs are clear. No pleural effusions or pneumothorax. Mediastinum: Mediastinal contours are normal. Heart size is normal. Bones and chest wall: No suspicious bony abnormalities. Soft tissues appear unremarkable. IMPRESSION: No acute cardiopulmonary abnormality. Approved by: Miky Walter M.D. on 12/03/2022 at 13:39
== END ==
PROVIDERS: Family Provider Family Medicine; PCP Family Medicine; Referring Provider Nurse Practitioner Family; Visit Provider Nurse Practitioner Family
DX: R06.02 Shortness of breath (principal)
CPT/HCPCS: 71046

== ENCOUNTER 2022-12-29 18:22 | Emergency (ER) | payer MEDICARE, SELFPAY ==
[2022-03-09 18:14] VITALS: BMI 33.8
[2022-12-29 18:23] VITALS: BP 144/78; PULSE 71; RESP 15; TEMP 36.6; O2SAT 97; BMI 34.9
--- NOTE | 2022-12-29 18:27 | DI.RAD.S_ITS ---
PROCEDURE: XR HAND RT MIN 3V INDICATIONS: hand injury TECHNIQUE: 3 views of the hand(s) acquired. COMPARISON: [facility], CR, XR FINGER RT MIN 2V, 10/16/2022, 9:41. [facility], CR, XR HAND LT MIN 3V, 09/10/2020, 11:39. FINDINGS: Bones: There is a spiral fracture of the 5th metacarpal which is mildly laterally displaced. The CMC and MCP joints appear in normal alignment. There is minimal angulation of the fragments. Soft tissues: No suspicious soft tissue calcifications. IMPRESSION: 1. Mildly displaced spiral fracture of the 5th metacarpal. Dictated by: Rosibel Wiseman M.D. on 12/29/2022 at 19:22 Approved by: Rosibel Wiseman M.D. on 12/29/2022 at 19:23
[2022-12-29 20:21] VITALS: BP 146/78; RESP 18; TEMP 36.5; O2SAT 97
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
[2022-12-30] MEDS: HYDROCODONE/ACET 5/325 PREPACK 1 BOTTLE MISC (00:20)
== END 2022-12-30 00:38 | disposition home or self-care (01) ==
PROVIDERS: Emergency Provider Emergency Medicine; Family Provider Family Medicine; PCP Family Medicine
DX: S62.306A Unspecified fracture of fifth metacarpal bone, right hand, initial encounter for closed fracture (principal); W18.30XA Fall on same level, unspecified, initial encounter
CPT/HCPCS: 29125; 73130; 99282; 99283

== ENCOUNTER → 2023-01-08 11:27 | Outpatient (CLI) | payer MEDICARE, SELFPAY ==
[2022-03-09 18:14] VITALS: BMI 33.8
--- NOTE | 2023-01-08 | DI.CT.S_ITS ---
PROCEDURE: CT LUNG LOW DOSE SCREENING INDICATIONS: Other forms of dyspnea, personal history of nicotine depende TECHNIQUE: Noncontrast 2.0-2.5 mm thick sections acquired from the pulmonary apices to the posterior costophrenic angles. 7 mm thick axial MIP, and 5 mm coronal and sagittal reformats were then acquired. A low radiation dose technique was utilized. COMPARISON: [facility], CT, CT LUNG LOW DOSE SCREENING, 05/13/2022, 16:00. FINDINGS: Image quality: Diagnostic, given the low radiation dose technique. Lungs and pleura: Mild emphysematous change. Mediastinum: Heart size is normal. Three-vessel coronary artery calcifications. No pericardial effusion. No mediastinal adenopathy by size criteria. Thoracic aorta and central pulmonary arteries are normal in size. Esophagus is normal in caliber. No hiatal hernia. Bones and chest wall: No suspicious bony lesions. No vertebral body compression fractures. No axillary or supraclavicular adenopathy by size criteria. Thyroid gland is unremarkable. Abdomen: Visualized upper abdomen solid organs and bowel loops appear normal in the absence of contrast. Small cyst at the left kidney. IMPRESSION: No mass or significant pulmonary nodules. LUNG-RADS 1; recommend follow-up lung cancer screening chest CT in 12 months. Moderate three-vessel coronary artery calcifications. Dictated by: Silvano Mg M.D. on 01/08/2023 at 14:09 Approved by: Silvano Mg M.D. on 01/08/2023 at 14:14
== END ==
PROVIDERS: Family Provider Family Medicine; PCP Family Medicine; Referring Provider Internal Medicine; Visit Provider Internal Medicine
DX: R06.09 Other forms of dyspnea (principal); I25.10 Atherosclerotic heart disease of native coronary artery without angina pectoris; R05.3 Chronic cough; Z87.891 Personal history of nicotine dependence
CPT/HCPCS: 71271

== ENCOUNTER → 2023-11-13 09:22 | Outpatient (CLI) | payer MEDICARE, SELFPAY ==
[2022-03-09 18:14] VITALS: BMI 33.8
[2023-11-13 11:27] LABS: Prostate Specific Antigen 0.974 ng/mL (0.10-4.00)
== END ==
PROVIDERS: Family Provider Family Medicine; PCP Family Medicine; Referring Provider Specialist; Visit Provider Specialist
DX: R35.0 Frequency of micturition (principal)
CPT/HCPCS: 36415; 84153

== ENCOUNTER → 2024-01-11 11:24 | Outpatient (CLI) | payer MEDICARE, SELFPAY ==
[2022-03-09 18:14] VITALS: BMI 33.8
[2024-01-11 12:30] LABS: Add Manual Diff / Slide Review NO; Basophils Absolute Auto 100 /uL (0-100); Basophils Percent Auto 1.4 % (0-2); Eosinophils Absolute Auto 500 /uL (0-450); Eosinophils Percent Auto 7.3 % (2-4); Hematocrit 43.7 % (41-53); Hemoglobin 15.2 g/dL (13.5-17.5); Lymphocytes Absolute Auto 700 /uL (1100-4500); Lymphocytes Percent Auto 11.5 % (25-40); Mean Corpuscular HGB Conc 34.7 % (30-36); Mean Corpuscular Hemoglobin 32.8 PG (26-34); Mean Corpuscular Volume 94.4 fL (80-100); Monocytes Absolute Auto 900 /uL (0-900); Monocytes Percent Auto 13.7 % (3-14); Neutrophils Absolute Auto 4100 /uL (1500-7000); Neutrophils Percent Auto 66.1 % (50-75); Platelet Count 312 X10^3/uL (150-400); Red Blood Cell Count 4.63 X10^6/uL (4.5-5.9); Red Cell Distribution Width 12.8 % (11.6-14.8); White Blood Cell Count 6.2 X10^3/uL (4.5-11.0)
[2024-01-11 14:32] LABS: Alanine Aminotransferase 21 IU/L (<50); Albumin Globulin Ratio 1.4 (1.0-2.8); Alkaline Phosphatase 77 U/L (38-126); Aspartate Aminotransferase 27 IU/L (17-59); BUN Creatinine Ratio 21.9 (6-22); Blood Urea Nitrogen 14 mg/dL (9-20); Calcium 8.9 mg/dL (8.4-10.2); Carbon Dioxide 24 mmol/L (22-32); Chloride 93 mmol/L (98-107); Cholesterol 150 mg/dL (140-199); Estimated Glomerular Filt Rate > 60 mL/min (>60); Globulin 2.9 g/dL (1.7-4.1); Glucose 116 mg/dL (80-110); HDL Cholesterol 47 mg/dL (40-60); HEMOLYSIS < 15 (0-50); LDL Cholesterol Calculated 91 mg/dL (<100); Potassium 4.3 mmol/L (3.4-5.1); Sodium 123 mmol/L (137-145); Total Protein 6.9 g/dL (6.3-8.2); Triglycerides 61 mg/dL (35-150)
== END ==
PROVIDERS: Family Provider Family Medicine; PCP Family Medicine; Referring Provider Family Medicine; Visit Provider Family Medicine
DX: I10 Essential (primary) hypertension (principal); E87.1 Hypo-osmolality and hyponatremia; E66.9 Obesity, unspecified
CPT/HCPCS: 36415; 80053; 80061; 85025

== ENCOUNTER → 2024-01-20 12:21 | Outpatient (CLI) | payer MEDICARE, SELFPAY ==
[2022-03-09 18:14] VITALS: BMI 33.8
[2024-01-20 13:05] LABS: Sodium 121 mmol/L (137-145)
== END ==
PROVIDERS: Family Provider Family Medicine; PCP Family Medicine; Referring Provider Family Medicine; Visit Provider Family Medicine
DX: E87.1 Hypo-osmolality and hyponatremia (principal)
CPT/HCPCS: 36415; 84295

== ENCOUNTER 2024-01-20 14:06 | Emergency (ER) | payer MEDICARE, SELFPAY ==
[2022-03-09 18:14] VITALS: BMI 33.8
[2024-01-20 14:21] VITALS: BP 130/67; PULSE 84; RESP 16; TEMP 36.9; O2SAT 96; BMI 37.2
--- NOTE | 2024-01-20 14:31 | DI.RAD.S_ITS ---
PROCEDURE: XR CHEST 1V INDICATIONS: chest pain TECHNIQUE: One view of the chest was acquired. COMPARISON: [facility], CR, XR CHEST 2V, 12/02/2022, 18:10. FINDINGS: Surgical changes and devices: None. Lungs and pleura: Lungs are clear ill-defined airspace opacities are noted in bilateral infrahilar region. Increased interstitial lung markings are noted bilaterally concerning for pulmonary edema versus pneumonitis. Mediastinum: Mediastinal contours appear normal. Heart size is normal. Bones and chest wall: No suspicious bony lesions. Overlying soft tissues appear unremarkable. IMPRESSION: 1. Finding may represent pulmonary vascular congestion and pulmonary edema. Underlying bilateral infrahilar infiltrates cannot be entirely excluded. No pleural effusion or pneumothorax. Dictated by: Xander Singh M.D. on 01/20/2024 at 15:40 Approved by: Xander Singh M.D. on 01/20/2024 at 15:41
--- NOTE | 2024-01-20 14:50 | EKG_ITS ---
[facility] [address] [place] [address] Test Date: 2024-01-20 Pat Name: Troy Tinoe Department: [facility] Room: Gender: Male Sod Stripper: MICHELLE : 1945 Requested By: Order Number: [id number] Reading MD: Frederick Gallardo MD Measurements Intervals Beason Rate: 80 P: 20 SC: 226 QRS: -41 QRSD: 90 T: 13 QT: 386 QTc: 445 Interpretive Statements Sinus rhythm with 1st degree AV block Left axis deviation Moderate voltage criteria for LVH, may be normal variant ( R in aVL , Derek product ) Electronically Signed On 01-21-2024 7:37:46 PDT by Frederick Gallardo MD
[2024-01-20 15:06] LABS: Add Manual Diff / Slide Review NO; Basophils Absolute Auto 100 /uL (0-100); Eosinophils Absolute Auto 400 /uL (0-450); Eosinophils Percent Auto 4.8 % (2-4); Hematocrit 42.7 % (41-53); Hemoglobin 14.7 g/dL (13.5-17.5); Lymphocytes Absolute Auto 800 /uL (1100-4500); Lymphocytes Percent Auto 10.8 % (25-40); Mean Corpuscular HGB Conc 34.5 % (30-36); Mean Corpuscular Hemoglobin 32.7 PG (26-34); Mean Corpuscular Volume 94.6 fL (80-100); Monocytes Absolute Auto 800 /uL (0-900); Monocytes Percent Auto 10.3 % (3-14); Neutrophils Absolute Auto 5600 /uL (1500-7000); Neutrophils Percent Auto 73.1 % (50-75); Platelet Count 295 X10^3/uL (150-400); Red Blood Cell Count 4.51 X10^6/uL (4.5-5.9); Red Cell Distribution Width 12.7 % (11.6-14.8); White Blood Cell Count 7.6 X10^3/uL (4.5-11.0)
[2024-01-20 15:15] LABS: INR 1.1 (0.9-1.3); Prothrombin Time 12.2 SECONDS (9.4-12.5)
[2024-01-20 15:18] LABS: PTT Partial Thromboplastin Tim 33 SECONDS (25.1-36.5)
[2024-01-20 15:20] LABS: Alanine Aminotransferase 20 IU/L (<50); Albumin Globulin Ratio 1.5 (1.0-2.8); Alkaline Phosphatase 72 U/L (38-126); Aspartate Aminotransferase 23 IU/L (17-59); BUN Creatinine Ratio 18.1 (6-22); Bilirubin Total 1.1 mg/dL (0.2-1.3); Blood Urea Nitrogen 13 mg/dL (9-20); Calcium 8.9 mg/dL (8.4-10.2); Carbon Dioxide 22 mmol/L (22-32); Chloride 93 mmol/L (98-107); Creatine Kinase 54 U/L (55-170); Estimated Glomerular Filt Rate > 60 mL/min (>60); Globulin 2.7 g/dL (1.7-4.1); Glucose 130 mg/dL (80-110); HEMOLYSIS < 15 (0-50); Lipase 35 U/L (23-300); Magnesium 1.6 mg/dL (1.6-2.3); Potassium 4.2 mmol/L (3.4-5.1); Sodium 122 mmol/L (137-145); Total Protein 6.7 g/dL (6.3-8.2)
[2024-01-20] MEDS: SODIUM CHLORIDE 0.9% 1,000 ML 100 ML IV (15:24)
[2024-01-20 15:31] LABS: NT-proBNP (BNP-Adult 18+) 53 pg/mL (<450); Troponin I < 0.012 ng/mL (0.01-0.034)
[2024-01-20 18:25] VITALS: BP 117/66; PULSE 67; RESP 14; O2SAT 98
--- NOTE | 2024-01-20 18:52 | ED_ITS ---
HPI - Recheck/Abnormal Lab/Rx General Chief Complaint: Recheck/Abnormal Lab/Rx Stated Complaint: Sent over from his Doctor to get IV Time Seen by Provider: 01/20/24 17:57 Source: patient Mode of arrival: Ambulatory Limitations: no limitations History of Present Illness HPI narrative: Patient is a 78-year-old male. Has been followed by his primary doctor for evaluation of low sodium levels. He stated that he would labs drawn and was told that his sodium level continues to decrease so he was advised to come to the emergency department for an IV. Patient does report fatigue over the past couple weeks. Denies chest pain or shortness of breath. No fevers. No change in his medications. He states he does drink quite a bit of water. Related Data Previous Rx's Medication Instructions Recorded losartan 100 mg tablet See Rx Instructions .Route 06/29/23 .COMPLEX #90 tabs amlodipine 5 mg tablet 5 mg PO DAILY #90 tabs 06/30/23 tamsulosin 0.4 mg capsule See Rx Instructions .Route 08/25/23 .COMPLEX #90 caps vibegron 75 mg tablet (Gemtesa) 75 mg PO DAILY #90 tabs 11/15/23 fluoxetine 40 mg capsule 80 mg (2 x 40 mg) PO DAILY #180 11/22/23 caps tolterodine 4 mg capsule,extended 4 mg PO DAILY #90 caps 12/15/23 release 24 hr Allergies Allergy/AdvReac Type Severity Reaction Status Date / Time No Known Drug Allergies Allergy Verified 12/29/23 15:06 Review of Systems Review of Systems ROS Unobtainable: All systems reviewed & are unremarkable except as noted in HPI and below Patient History Medical History Urge incontinence Lower urinary tract symptoms (LUTS) Muscle strain Rib pain on left side Fall from standing Unknown skin lesion Hyperglycemia Atypical pneumonia Tinea corporis Hearing difficulty De Quervain's tenosynovitis, right Dupuytren's contracture of right hand Hearing loss WEISS (dyspnea on exertion) Stopped smoking with greater than 40 pack year history COPD (chronic obstructive pulmonary disease) Hypotension Abnormal echocardiogram findings without diagnosis Lightheadedness Chronic cough Chronic hyponatremia BPH w urinary obs/LUTS Nasal bleeding Atypical nevus of forehead Balance problem Urinary incontinence Obstructive sleep apnea, adult BPPV (benign paroxysmal positional vertigo) FH: bilateral hip replacements Weight loss counseling, encounter for Low back pain Obesity (BMI 30-39.9) Syncope and collapse 1st degree AV block Degenerative joint disease (DJD) of hip (Unknown) Osteoarthritis (Unknown) Depression (Unknown) Surgical History History of hip replacement Status post hernia repair Status post appendectomy History of tonsillectomy Family History Father Heart disease Kidney disease Loud snoring Mother Obesity Hypertension Depression Anxiety Social History marital status: number of children: 4 household members: spouse occupational status: employed 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 Smoking Status: Former smoker Tobacco: How many years used: 30 second hand exposure: No alcohol intake: never substance use type: does not use caffeine: Yes Type(s) of exercise: aerobic and other frequency: 3-4 times per week duration: > 90 minutes/day Smoking Status: Former smoker alcohol intake frequency: holidays/special occasions only Substance Use Type: does not use Exam Initial Vital Signs Initial Vital Signs: Vital Signs Temperature 98.5 F 01/20/24 14:21 Pulse Rate 84 01/20/24 14:21 Respiratory Rate 16 01/20/24 14:21 Blood Pressure 130/67 01/20/24 14:21 Pulse Oximetry 96 01/20/24 14:21 Oxygen Delivery Method Room Air 01/20/24 14:21 Const General: cooperative, comfortable and No ill appearing Resp Effort & Inspection: normal respiratory effort Cardio Rate: regular rate GI Inspection: normal to inspection Skin General: no rashes or lesions noted Neuro General: patient alert, patient awake, patient oriented x3, gait normal and moves all extremities Extrem General: normal to inspection and capillary refill normal Course Orders Ordered: ED Orders 01/20/24 18:25 Urine Culture Stat Urine Culture Stat Urine Microscopic Stat Discontinued Medications Sodium Chloride (Normal Saline 0.9%) 1,000 mls @ 100 mls/hr IV CONT PAULINA Last Infusion: 01/20/24 19:31 Dose: Infused Documented By: Admin: 01/20/24 15:24 Dose: 100 mls/hr Documented By: BALJIT Vital Signs Vital signs: Vital Signs - 8 hr 01/20/24 18:25 01/20/24 19:27 Pulse Rate 67 66 Respiratory Rate 14 14 Blood Pressure 117/66 117/66 Pulse Oximetry 98 97 Oxygen Delivery Method Room Air Room Air MDM - Recheck/Abnormal Lab/Rx Medical Records Attestation: I reviewed the patient's medical records. Lab Data Attestation: I reviewed the patient's lab results. 01/20/24 14:55 01/20/24 14:55 Labs: Lab Results 01/20/24 01/20/24 Range/Units 14:55 18:25 WBC 7.6 (4.5-11.0) X10^3/uL RBC 4.51 (4.5-5.9) X10^6/uL Hgb 14.7 (13.5-17.5) g/dL Hct 42.7 (41-53) % MCV 94.6 (80-100) fL MCH 32.7 (26-34) PG MCHC 34.5 (30-36) % RDW 12.7 (11.6-14.8) % Plt Count 295 (150-400) X10^3/uL Neut % (Auto) 73.1 (50-75) % Lymph % (Auto) 10.8 L (25-40) % Charlotte % (Auto) 10.3 (3-14) % Eos % (Auto) 4.8 H (2-4) % Baso % (Auto) 1.0 (0-2) % Neut # (Auto) 5600 (5977-5394) /uL Lymph # (Auto) 800 L (1117-8291) /uL Charlotte # (Auto) 800 (0-900) /uL Eos # (Auto) 400 (0-450) /uL Baso # (Auto) 100 (0-100) /uL PT 12.2 (9.4-12.5) SECONDS INR 1.1 (0.9-1.3) APTT 33 (25.1-36.5) SECONDS Sodium 122 L (137-145) mmol/L Potassium 4.2 (3.4-5.1) mmol/L Chloride 93 L (98-107) mmol/L Carbon Dioxide 22 (22-32) mmol/L BUN 13 (9-20) mg/dL Creatinine 0.72 (0.66-1.25) mg/dL Estimated GFR > 60 (>60) mL/min BUN/Creatinine Ratio 18.1 (6-22) Glucose 130 H (80-110) mg/dL Calcium 8.9 (8.4-10.2) mg/dL Magnesium 1.6 (1.6-2.3) mg/dL Total Bilirubin 1.1 (0.2-1.3) mg/dL AST 23 (17-59) IU/L ALT 20 (<50) IU/L Alkaline Phosphatase 72 (38-126) U/L Total Creatine Kinase 54 L (55-170) U/L Troponin I < 0.012 (0.01-0.034) ng/mL NT-Pro-B Natriuret Pep 53 (<450) pg/mL Total Protein 6.7 (6.3-8.2) g/dL Albumin 4.0 (3.5-5.0) g/dL Globulin 2.7 (1.7-4.1) g/dL Albumin/Globulin Ratio 1.5 (1.0-2.8) Lipase 35 (23-300) U/L Urine RBC None seen (0-5/HPF) Urine WBC 5-10/hpf H (0-5/HPF) Ur Squamous Epith Cells 1-5 /hpf (0-5/HPF) Urine Bacteria Occasional (0-1) (None) Urine Mucus 3+ H (Negative) Ur Culture Indicated? Specimen cultured Vol Urine Centrifuged 10ml (spun) Urine Dip Bedside Urine Glucose Negative Bedside Urine Bilirubin - Negative Bedside Urine Ketone - Negative Urine Specific [place] 1.015 Bedside Urine Occult Blood - Negative Bedside Urine pH 6.0 Bedside Urine Protein - Negative Bedside Urine Urobilinogen - Negative Bedside Urine Nitrite - Negative Bedside Urine Leukocytes +/- 15 Esterase Imaging Data Chest x-ray: Radiologist's Impression: PROCEDURE: XR CHEST 1V INDICATIONS: chest pain TECHNIQUE: One view of the chest was acquired. COMPARISON: [facility], CR, XR CHEST 2V, 12/02/2022, 18:10. FINDINGS: Surgical changes and devices: None. Lungs and pleura: Lungs are clear ill-defined airspace opacities are noted in bilateral infrahilar region. Increased interstitial lung markings are noted bilaterally concerning for pulmonary edema versus pneumonitis. Mediastinum: Mediastinal contours appear normal. Heart size is normal. Bones and chest wall: No suspicious bony lesions. Overlying soft tissues appear unremarkable. IMPRESSION: 1. Finding may represent pulmonary vascular congestion and pulmonary edema. Underlying bilateral infrahilar infiltrates cannot be entirely excluded. No pleural effusion or pneumothorax. ECG Data Attestation: I personally reviewed and interpreted this ECG as follows: Interpretation: Sinus rhythm Ventricular rate of first-degree AV block CT interval of 2-[address] T wave changes MDM Narrative Medical decision making narrative: Sodium today was 122. Ten days ago was 123. Kidney functions unremarkable. Was given fluids here in the ER. Given the chronicity of his hyponatremia no indication for admission to the hospital today. Advised that he increase the sodium in his diet. Advised that tomorrow he contact his primary doctor for a follow-up as he may need specialist referral. He was given return precautions. He expressed understanding and agreement with plan Discharge Plan Departure Patient Disposition: Home Clinical Impression: Hyponatremia Instructions: DI for Hyponatremia Activity Restrictions/Additional Instructions: I do recommend that tomorrow you contact your primary care doctor for further workup of your low sodium levels. You can supplement this by trying to increase the amount of sodium that you were consuming at home and your diet. Return to the emergency department for new symptoms. Prescriptions: No Action losartan 100 mg tablet See Rx Instructions .ROUTE .COMPLEX Qty: 90 3RF Dose Instruction: TAKE 1 TABLET BY MOUTH DAILY Rx Instructions: TAKE 1 TABLET BY MOUTH DAILY amlodipine 5 mg tablet 5 mg PO DAILY Qty: 90 0RF fluoxetine 40 mg capsule 80 mg PO DAILY Qty: 180 1RF tamsulosin 0.4 mg capsule See Rx Instructions .ROUTE .COMPLEX Qty: 90 3RF Dose Instruction: TAKE 1 CAPSULE BY MOUTH DAILY Rx Instructions: TAKE 1 CAPSULE BY MOUTH DAILY Gemtesa 75 mg tablet 75 mg PO DAILY Qty: 90 3RF tolterodine 4 mg capsule,extended release 24hr 4 mg PO DAILY Qty: 90 3RF Referrals: Lalitha Haro DO [Primary Care Provider] - Stand Alone Forms: Patient Portal/API
[2024-01-20 19:07] LABS: Urine Volume 10mL (spun)
[2024-01-20 19:08] LABS: Bacteria Urine Occasional (0-1); RBC Urine None Seen (0-5/HPF); Squamous Epithelial Cell Urine 1-5 /HPF (0-5/HPF); WBC Urine 5-10/HPF (0-5/HPF)
[2024-01-20 19:09] LABS: Culture Indicated Urine Specimen Cultured; Mucus Urine 3+ (Negative)
[2024-01-20 19:27] VITALS: BP 117/66; PULSE 66; RESP 14; O2SAT 97
== END 2024-01-20 19:31 | disposition home or self-care (01) ==
PROVIDERS: Emergency Medicine; Emergency Provider Emergency Medicine; Family Provider Family Medicine; PCP Family Medicine
DX: E87.1 Hypo-osmolality and hyponatremia (principal); R07.9 Chest pain, unspecified; I44.0 Atrioventricular block, first degree
CPT/HCPCS: 36415; 71045; 80053; 81003; 81015; 82550; 83690; 83735; 83880; 84295; 84484; 85025; 85610; 85730; 87086; 93005; 93010; 96360; 96361; 99284

== ENCOUNTER → 2024-01-25 10:50 | Outpatient (CLI) | payer MEDICARE, SELFPAY ==
[2022-03-09 18:14] VITALS: BMI 33.8
[2024-01-25 10:43] VITALS: BMI 33.8
--- NOTE | 2024-01-25 14:23 | DI.CT.S_ITS ---
PROCEDURE: CT LUNG LOW DOSE SCREENING INDICATIONS: COPD, lung cancer screening TECHNIQUE: Noncontrast 2.0-2.5 mm thick sections acquired from the pulmonary apices to the posterior costophrenic angles. 7 mm thick axial MIP, and 5 mm coronal and sagittal reformats were then acquired. For radiation dose reduction, the following was used: automated exposure control, adjustment of mA and/or kV according to patient size. COMPARISON: [facility], CT, CT LUNG LOW DOSE SCREENING, 01/08/2023, 11:38. FINDINGS: Image quality: Diagnostic. Lower Neck: No enlarged lymph nodes. Thyroid: No thyroid nodules which require sonographic follow up, per consensus guidelines. Axillae: No enlarged lymph nodes. Chest Wall: Unremarkable. Bones: Unremarkable. Lungs and Pleura: No pneumothorax or pleural effusions. No consolidation or suspicious nodules. Heart: Heart size is normal. No pericardial effusion. Moderate three-vessel coronary artery calcifications Thoracic Vessels: The aorta and pulmonary arteries demonstrate normal size. Mediastinum and Sapna: No enlarged lymph nodes. Esophagus: No wall thickening. No hiatal hernia. Upper Abdomen: Visualized upper abdomen solid organs and bowel loops appear normal. IMPRESSION: No suspicious pulmonary nodules. LUNG-RADS 1; continued annual screening, if eligible. Clinically Significant Non-pulmonary Findings: Moderate coronary artery calcifications. Consider cardiology referral. Approved by: Kate Howe M.D.,Ph.D. on 01/25/2024 at 19:42
--- NOTE | 2024-01-25 14:23 | DI.NM.S_ITS ---
PROCEDURE: NM EXERCISE TREADMILL NON NUC COMPARISON: None. INDICATIONS: CAD, hypertension, obesity FINDINGS: Rest ECG sinus rhythm. Surendra protocol 3:26, maximum heart rate 119 bpm (83% peak predicted), maximum blood pressure 148/88, 4.6 METS, CHEVY +34%. Exercise ECG sinus tachycardia, no ST segment changes or arrhythmia. Rare PVCs noted. The patient did not report exercise-induced chest discomfort but was noted to have severe shortness of breath. IMPRESSION: Intermediate risk study. No evidence of exercise-induced ischemia at the level of heart rate achieved which was just under 85% of peak predicted. Accelerated heart rate response. Normal blood pressure response. Reduced exercise capacity with severe exercise-induced dyspnea. Dictated by: Barby Vale D.O. on 01/25/2024 at 16:13 Approved by: Barby Vale D.O. on 01/25/2024 at 16:16
== END ==
PROVIDERS: Family Provider Family Medicine; PCP Family Medicine; Referring Provider Family Medicine; Visit Provider Family Medicine
DX: Z87.891 Personal history of nicotine dependence; Z12.2 Encounter for screening for malignant neoplasm of respiratory organs; I10 Essential (primary) hypertension; I25.10 Atherosclerotic heart disease of native coronary artery without angina pectoris
CPT/HCPCS: 71271; 93017

== ENCOUNTER → 2024-02-01 10:24 | Outpatient (CLI) | payer MEDICARE, SELFPAY ==
[2024-01-25 10:43] VITALS: BMI 33.8
[2024-02-01 13:20] LABS: TSH w/ Reflex to FT4 1.37 uIU/mL (0.47-4.68)
[2024-02-02 13:36] LABS: Osmolality Urine 679 mOsmol/kg (.)
== END ==
PROVIDERS: Family Provider Family Medicine; PCP Family Medicine; Referring Provider Family Medicine; Visit Provider Family Medicine
DX: E87.1 Hypo-osmolality and hyponatremia (principal); N32.81 Overactive bladder
CPT/HCPCS: 36415; 82533; 83935; 84443

== ENCOUNTER → 2024-02-14 18:41 | Outpatient (CLI) | payer MEDICARE, SELFPAY ==
[2024-01-25 10:43] VITALS: BMI 33.8
--- NOTE | 2024-02-14 18:44 | DI.MRI.S_ITS ---
PROCEDURE: MR BRAIN (PITUITARY) WWO CON INDICATIONS: hyponatremia TECHNIQUE: Noncontrast sagittal and axial FLAIR, axial gradient echo, axial diffusion and ADC through the brain. Thin-slice sagittal and coronal T1 spin echo, coronal T2 fast spin echo through the pituitary. After the administration contrast, optional dynamic coronal T1 spin echo, thin-slice coronal and sagittal T1 spin echo images through the pituitary fossa; axial and coronal and sagittal T1 spin echo with fat saturation through the brain. COMPARISON: None. FINDINGS: Pituitary Gland: Normal homogeneously enhancing pituitary gland without focal nodule or delayed enhancement. Posterior pituitary bright spot unremarkable. Infundibulum is midline. No suprasellar mass lesion. Both cavernous sinuses enhance appropriately contain normal ICA flow voids. CSF Spaces: Ventricles are normal in size and shape. Basal cisterns are patent. No extra-axial fluid collections. Brain: No intracranial bleeds or mass effects. No abnormal intracranial enhancement. King-white matter interface is intact. Diffusion weighted images demonstrate no acute ischemic insults. Brainstem is normal. Normal intravascular flow voids are present. Moderate atrophy with frontal lobe predominance noted. Advanced multifocal and confluent white matter chronic ischemic change present in the cerebrum and cristine. Skull and face: Calvarial marrow is normal in signal. Orbits appear normal. Sinuses: Air-fluid level and mucosal debris noted in the sphenoid sinus. No remodeling. IMPRESSION: Unremarkable pituitary gland without nodule or mass lesion. Moderate atrophy with frontal lobe predominance. Advanced multifocal and confluent white matter chronic ischemic change present in the cerebrum and cristine. Air-fluid level and mucosal debris in the sphenoid sinus. Approved by: Derick Cervantes M.D. on 02/15/2024 at 11:47
== END ==
PROVIDERS: Family Provider Family Medicine; PCP Family Medicine; Referring Provider Family Medicine; Visit Provider Family Medicine
DX: E87.1 Hypo-osmolality and hyponatremia (principal)
CPT/HCPCS: 70553; A9579

== ENCOUNTER → 2024-03-08 18:00 | Outpatient (CLI) | payer MEDICARE, SELFPAY ==
[2024-01-25 10:43] VITALS: BMI 33.8
--- NOTE | 2024-03-08 18:02 | DI.RAD.S_ITS ---
PROCEDURE: XR CHEST 2V INDICATIONS: acute on chronic cough TECHNIQUE: 2 views of the chest were acquired. COMPARISON: [facility], CR, XR CHEST 1V, 01/20/2024, 14:31. FINDINGS: Surgical changes and devices: None. Lungs and pleura: Interstitial prominence. Mediastinum: Mediastinal contours are normal. Heart size is enlarged. Bones and chest wall: No suspicious bony abnormalities. Soft tissues appear unremarkable. IMPRESSION: Interstitial prominence which could be related to pneumonia versus edema. Dictated by: Leatha Munoz M.D. on 03/08/2024 at 18:40 Approved by: Leatha Munoz M.D. on 03/08/2024 at 18:40
== END ==
LOC: RAD 18:01
PROVIDERS: Family Provider Family Medicine; PCP Family Medicine; Referring Provider Student in an Organized Health Care Education/Training Program; Visit Provider Student in an Organized Health Care Education/Training Program
DX: R05.9 Cough, unspecified (principal); I51.7 Cardiomegaly
CPT/HCPCS: 71046

== ENCOUNTER → 2024-03-15 15:55 | Outpatient (CLI) | payer MEDICARE, SELFPAY ==
[2024-01-25 10:43] VITALS: BMI 33.8
[2024-03-15 17:57] LABS: C-Reactive Protein Quant < 0.5 mg/dL (<1.0)
[2024-03-15 18:03] LABS: Rheumatoid Factor < 8.6 IU/mL (<12.0)
[2024-03-15 18:43] LABS: Vitamin B12 Reflex MMA if <400 749 pg/mL (239-931)
[2024-03-15 19:45] LABS: Erythrocyte Sedimentation Rate 10 MM/HR (0-15)
== END ==
LOC: LAB 15:56
PROVIDERS: Family Provider Family Medicine; PCP Family Medicine; Referring Provider Family Medicine; Visit Provider Family Medicine
DX: G70.89 Other specified myoneural disorders (principal); J99 Respiratory disorders in diseases classified elsewhere; I10 Essential (primary) hypertension; E66.9 Obesity, unspecified; G47.33 Obstructive sleep apnea (adult) (pediatric); E87.1 Hypo-osmolality and hyponatremia; R05.3 Chronic cough; R06.09 Other forms of dyspnea; J41.1 Mucopurulent chronic bronchitis; Z87.891 Personal history of nicotine dependence
CPT/HCPCS: 36415; 82607; 84155; 84165; 85651; 86038; 86140; 86430

== ENCOUNTER → 2024-03-20 12:47 | Outpatient (CLI) | payer MEDICARE, SELFPAY ==
[2024-01-25 10:43] VITALS: BMI 33.8
[2024-03-20 15:34] LABS: Collection Time Urine 24 Hours; Sodium 24 Hour Urine 261 mmol/day (40-220); Sodium Urine Random 116 mmol/L (30-90); Total Volume Urine 2250 mL
== END ==
LOC: LAB 12:48
PROVIDERS: Family Provider Family Medicine; PCP Family Medicine; Referring Provider Family Medicine; Visit Provider Family Medicine
DX: E87.1 Hypo-osmolality and hyponatremia (principal)
CPT/HCPCS: 84300

== ENCOUNTER → 2024-03-21 11:33 | Outpatient (CLI) | payer MEDICARE, SELFPAY ==
[2024-01-25 10:43] VITALS: BMI 33.8
== END ==
PROVIDERS: Family Provider Family Medicine; PCP Family Medicine; Referring Provider Family Medicine; Visit Provider Family Medicine
DX: J44.9 Chronic obstructive pulmonary disease, unspecified (principal); I10 Essential (primary) hypertension; E66.9 Obesity, unspecified; G47.33 Obstructive sleep apnea (adult) (pediatric); E87.1 Hypo-osmolality and hyponatremia; R05.3 Chronic cough; Z87.891 Personal history of nicotine dependence; R94.2 Abnormal results of pulmonary function studies
CPT/HCPCS: 94060; 94726; 94729

== ENCOUNTER → 2024-03-26 16:24 | Outpatient (CLI) | payer MEDICARE, SELFPAY ==
[2024-01-25 10:43] VITALS: BMI 33.8
--- NOTE | 2024-03-26 16:25 | DI.RAD.S_ITS ---
PROCEDURE: XR CHEST 2V INDICATIONS: follow-up XR from prior PNA TECHNIQUE: 2 views of the chest were acquired. COMPARISON: [facility], CR, XR CHEST 2V, 03/08/2024, 18:07. FINDINGS: Surgical changes and devices: None. Lungs and pleura: Persistent interstitial prominence with mild increase in more focal opacity in the left lower lobe. No pneumothorax or substantial pleural effusion. Mediastinum: Mediastinal contours are normal. Heart size is normal. Bones and chest wall: No suspicious bony abnormalities. Soft tissues appear unremarkable. IMPRESSION: Persistent interstitial prominence with mild increase in more focal opacity of the left lower lobe consistent with developing pneumonia. Recommend follow up chest radiograph 4-6 weeks after treatment to document resolution of findings and/or return to baseline examination. Dictated by: Jonnathan Houston M.D. on 03/26/2024 at 18:44 Approved by: Jonnathan Houston M.D. on 03/26/2024 at 18:46
== END ==
PROVIDERS: Family Provider Family Medicine; PCP Family Medicine; Referring Provider Nurse Practitioner Family; Visit Provider Nurse Practitioner Family
DX: R05.3 Chronic cough (principal); R06.09 Other forms of dyspnea; Z87.01 Personal history of pneumonia (recurrent)
CPT/HCPCS: 71046

== ENCOUNTER → 2024-04-07 11:51 | Outpatient (CLI) | payer MEDICARE, SELFPAY ==
[2024-01-25 10:43] VITALS: BMI 33.8
[2024-04-07 20:00] LABS: Adenovirus Not Detected (Not Detect); B. parapertussis Not Detected (Not Detecte); Bordetella pertussis Not Detected (Not Detect); Chlamydophila pneumoniae Not Detected (Not Detect); Coronavirus 229E Not Detected (Not Detect); Coronavirus HKU1 Not Detected (Not Detect); Coronavirus NL 63 Not Detected (Not Detect); Coronavirus OC43 Not Detected (Not Detect); Human Metapneumovirus Not Detected (Not Detect); Human Rhinovirus/Enterovirus Not Detected (Not Detect); Influenza A Not Detected (Not Detect); Influenza B Not Detected (Not Detect); Mycoplasma pneumoniae Not Detected (Not Detect); Parainfluenza Virus 1 Not Detected (Not Detect); Parainfluenza Virus 2 Not Detected (Not Detect); Parainfluenza Virus 3 Not Detected (Not Detect); Parainfluenza Virus 4 Not Detected (Not Detect); Respiratory Syncytial Virus Not Detected (Not Detect); SARS- CoV-2 Not Detected (Not Detecte)
== END ==
PROVIDERS: Family Provider Family Medicine; PCP Family Medicine; Referring Provider Family Medicine; Visit Provider Family Medicine
DX: J44.9 Chronic obstructive pulmonary disease, unspecified (principal); R05.3 Chronic cough; R06.09 Other forms of dyspnea; E66.9 Obesity, unspecified; E87.1 Hypo-osmolality and hyponatremia; Z87.891 Personal history of nicotine dependence
CPT/HCPCS: 87633

== ENCOUNTER → 2024-04-07 12:15 | Outpatient (CLI) | payer MEDICARE, SELFPAY ==
[2024-01-25 10:43] VITALS: BMI 33.8
[2024-04-07 13:12] LABS: Alanine Aminotransferase 29 IU/L (<50); Albumin Globulin Ratio 1.6 (1.0-2.8); Alkaline Phosphatase 86 U/L (38-126); Aspartate Aminotransferase 33 IU/L (17-59); Bilirubin Total 1.2 mg/dL (0.2-1.3); Blood Urea Nitrogen 13 mg/dL (9-20); Calcium 9.1 mg/dL (8.4-10.2); Carbon Dioxide 23 mmol/L (22-32); Chloride 90 mmol/L (98-107); Estimated Glomerular Filt Rate > 60 mL/min (>60); Globulin 2.5 g/dL (1.7-4.1); Glucose 108 mg/dL (80-110); HEMOLYSIS 23 (0-50); Potassium 4.9 mmol/L (3.4-5.1); Sodium 121 mmol/L (137-145); Total Protein 6.5 g/dL (6.3-8.2)
== END ==
PROVIDERS: Family Provider Family Medicine; PCP Family Medicine; Referring Provider Family Medicine; Visit Provider Family Medicine
DX: J44.9 Chronic obstructive pulmonary disease, unspecified (principal); E87.1 Hypo-osmolality and hyponatremia; E66.9 Obesity, unspecified; R05.3 Chronic cough; R06.09 Other forms of dyspnea; Z87.891 Personal history of nicotine dependence
CPT/HCPCS: 36415; 80053; 87633

== ENCOUNTER → 2024-04-20 11:22 | Outpatient (CLI) | payer MEDICARE, SELFPAY ==
[2024-04-20 11:06] VITALS: BMI 33.8
[2024-04-20 12:49] LABS: BUN Creatinine Ratio 35.1 (6-22); Blood Urea Nitrogen 26 mg/dL (9-20); Carbon Dioxide 24 mmol/L (22-32); Chloride 99 mmol/L (98-107); Estimated Glomerular Filt Rate > 60 mL/min (>60); Glucose 115 mg/dL (80-110); HEMOLYSIS < 15 (0-50); Potassium 4.3 mmol/L (3.4-5.1); Sodium 130 mmol/L (137-145)
== END ==
LOC: LAB 11:24
PROVIDERS: PCP Family Medicine; Referring Provider Family Medicine; Visit Provider Family Medicine
DX: E87.1 Hypo-osmolality and hyponatremia (principal)
CPT/HCPCS: 36415; 80048

== ENCOUNTER → 2024-08-14 10:16 | Outpatient (CLI) | payer MEDICARE, SELFPAY ==
[2024-04-20 11:06] VITALS: BMI 33.8
--- NOTE | 2024-08-14 10:17 | DI.NM.S_ITS ---
PROCEDURE: NM ADRI PERF SPECT R&S PHARM Rest and pharmacological stress myocardial perfusion SPECT with gated imaging and ejection fraction RADIOPHARMACEUTICAL: 25.5 mCi Tc-99m tetrafosmin IV at rest and 25.3 mCi Tc-99m tetrafosmin IV at peak effect of pharmacological stress. [id number] was performed. INDICATIONS: WEISS TECHNIQUE: Radiopharmaceutical was injected at peak stress test, and also at rest. SPECT images were obtained. SPECT myocardial perfusion images were displayed in short axis, horizontal long axis, and vertical long axis views. Gated images were reviewed using [employer] software. COMPARISON: None. CARDIAC STRESS: A pharmacologic stress test was performed under the supervision of an attending staff, using an infusion of regadenoson 0.4 mg IV. Hemodynamic data: There is normal blood pressure and heart rate response to pharmacologic stress. Symptoms: The patient denied anginal chest pain. EKG: No diagnostic changes of ischemia; no ectopy. FINDINGS: Raw data: There is good myocardial uptake of radiotracer. No significant motion artifacts. Gkvr-rg-[id number] ratio is 0.25 (normal is less than 0.38 for tetrafosmin tracer). Left ventricle function: Gated images demonstrate normal left ventricular wall thickening. No segmental wall motion abnormalities. No transient ischemic dilation; TID is 1.22 (normal less than 1.3). Left ventricle resting end diastolic volume is 96 mL. Left ventricle stress ejection fraction is 75%; normal range is above 45%. Myocardial perfusion: There is normal distribution of activity in the right and left ventricular myocardium. No fixed or reversible perfusion defects. IMPRESSION: Low risk study. No evidence of pharmacologic induced ischemia or scar. Normal LV size and function. Dictated by: Barby Vale D.O. on 08/22/2024 at 16:06 Approved by: Barby Vale D.O. on 08/22/2024 at 16:07
== END ==
LOC: NUCM 10:16
PROVIDERS: PCP Family Medicine; Referring Provider Internal Medicine; Visit Provider Internal Medicine
DX: R06.09 Other forms of dyspnea (principal)
CPT/HCPCS: 78452; 93017; A9502; J2785

== ENCOUNTER → 2024-09-05 15:19 | Outpatient (CLI) | payer MEDICARE, SELFPAY ==
[2024-04-20 11:06] VITALS: BMI 33.8
--- NOTE | 2024-09-05 15:20 | DI.RAD.S_ITS ---
PROCEDURE: XR RIBS RT MIN 3V W CXR 1V INDICATIONS: Fall right lateral rib pain TECHNIQUE: 4 views of the ribs were acquired, along with a single view chest. COMPARISON: [facility], , XR CHEST 1 VIEW, 04/08/2024, 9:08. FINDINGS: Surgical changes and devices: None. Bones and chest wall: No fractures or dislocations. No suspicious bony lesions. Overlying soft tissues appear unremarkable. Lungs and pleura: No pleural effusions or pneumothorax. Lungs appear clear. Mediastinum: Mediastinal contours appear normal. Heart size is normal. IMPRESSION: No displaced rib fracture or pneumothorax. Dictated by: Romario Lyles M.D. on 09/05/2024 at 19:42 Approved by: Romario Lyles M.D. on 09/05/2024 at 19:49
== END ==
PROVIDERS: PCP Family Medicine; Referring Provider Nurse Practitioner Family; Visit Provider Nurse Practitioner Family
DX: R07.89 Other chest pain (principal); W19.XXXA Unspecified fall, initial encounter
CPT/HCPCS: 71101

== ENCOUNTER → 2025-04-04 13:25 | Outpatient (CLI) | payer MEDICARE, SELFPAY ==
[2024-04-20 11:06] VITALS: BMI 33.8
--- NOTE | 2025-04-04 13:27 | DI.RAD.S_ITS ---
PROCEDURE: XR THORACIC SPINE 3V INDICATIONS: Low back pain TECHNIQUE: 3 views of the thoracic spine were acquired. COMPARISON: None. FINDINGS: Bones: No fractures or dislocations. No suspicious bony lesions. 12 pairs of ribs are noted, and appear intact where visualized. Mild dextrocurvature. Decreased osseous mineralization. Moderate multilevel degenerative changes with disc height loss and osteophytosis. Soft tissues: No paravertebral stripe thickening. 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 Dictated by: Crow Julian M.D. on 04/05/2025 at 16:58 Approved by: Crwo Julian M.D. on 04/05/2025 at 16:58
--- NOTE | 2025-04-04 13:27 | DI.RAD.S_ITS ---
PROCEDURE: XR LUMBAR SPINE 2-3V INDICATIONS: Low back pain TECHNIQUE: 3 views of the lumbar spine were acquired. COMPARISON: None. FINDINGS: Bones: 5 [id number]-[id number] vertebrae are present. Straightening of the normal lumbar lordosis. No vertebral body compression fractures. No suspicious bony lesions. There is multilevel facet arthropathy, worse at L4-5 and L5-S1. Multilevel disc height loss with degenerative endplate changes and spurring is present. This is most pronounced at L4-5. Decreased osseous mineralization. Partially visualized bilateral hip arthroplasties. Soft tissues: Overlying bowel gas pattern is normal. No suspicious soft tissue calcifications. Atherosclerotic vascular calcifications. 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 Dictated by: Crow Julian M.D. on 04/05/2025 at 16:57 Approved by: Crow Julian M.D. on 04/05/2025 at 16:57
== END ==
LOC: RAD 13:26
PROVIDERS: PCP Family Medicine; Referring Provider Family Medicine; Visit Provider Nurse Practitioner Family
DX: M47.814 Spondylosis without myelopathy or radiculopathy, thoracic region (principal); M47.816 Spondylosis without myelopathy or radiculopathy, lumbar region; M47.817 Spondylosis without myelopathy or radiculopathy, lumbosacral region; M54.50 Low back pain, unspecified
CPT/HCPCS: 72072; 72100

== ENCOUNTER → 2025-04-11 12:25 | Outpatient (CLI) | payer MEDICARE, SELFPAY ==
[2024-04-20 11:06] VITALS: BMI 33.8
--- NOTE | 2025-04-11 12:26 | DI.ECHO.S_ITS ---
[facility] +---------+ [facility] : : [address] : : [place] : : [id number] : : Phone: [phone] Echocardiogram Report + + :Name: JACOB MACIAS Study Date: 04/11/2025 Height: 68 in : :[facility] ReadingLocation: Weight: 260 lb : : Gender: Male BSA: 2.3 m2 : :: 1945 Age: 79 yrs BP: 142/83 mmHg: :Reason For Study: VALVULAR HEART DISEASE : :Ordering Physician: LISBETH SINGH Performed By: Nadir Villa : :Referring: LISBETH SINGH : + + Interpretation Summary TDS - BODY HABITUS, COPD Technically difficult study due to poor acoustic windows. Intracardiac echo contrast utilized. - The left ventricular contractility is normal. Estimated ejection fraction is greater than 60% with no segmental wall motion abnormalities. Moderate asymmetrical septal hypertrophy without obvious obstruction. Normal diastolic function. - The right ventricle was not well-visualized. In limited views, the contractility appears to be preserved. - The left ventricle and left atrium appear to be of normal size. The right atrium and right ventricle were poorly visualized. - No significant valvular abnormalities were noted on Doppler interrogation. - No obvious intracardiac shunts. - No obvious intracardiac masses nor thrombi. - No hemodynamic significant pericardial effusion. - Low right-sided filling pressures. Conclusion: Normal biventricular function with no significant valvular abnormalities. When compared with previous study, aortic insufficiency was not appreciated. Procedure: A two-dimensional transthoracic echocardiogram with color flow and Doppler was performed. A contrast injection of Definity was performed to improve assessment of LV function. The study quality was technically difficult. Comparison is made with the echocardiogram of 04/08/2024. The patient was in normal sinus rhythm during the exam. Left Ventricle: The left ventricle is normal in size. Left ventricular wall thickness is mildly increased. There is no ventricular septal defect visualized. The ejection fraction is estimated to be 60-65%. There are no focal wall motion abnormalities. Right Ventricle: The right ventricle is not well visualized. The right ventricular systolic function is normal. Atria: The left atrium grossly appears normal in size. Right atrium not well visualized. There is no Doppler evidence for an interatrial shunt. Mitral Valve: There is mild mitral annular calcification. The mitral valve leaflets are mildly calcified. There is no mitral regurgitation noted. Aortic Valve: The aortic valve is trileaflet. The aortic valve is mildly calcified. No aortic regurgitation is present. Tricuspid Valve: The tricuspid valve is not well visualized. No tricuspid regurgitation. Pulmonic Valve: The pulmonic valve is not well visualized. There is no pulmonic valvular regurgitation. Great Vessels: The aortic root is normal size. The dimensions of the ascending aorta are normal. The pulmonary artery is normal size. The IVC is of normal diameter and collapses greater than 50% with a sniff. This suggests a low right atrial pressure of 3 mm Hg. Pericardium/ Pleura There is no pericardial effusion. There is no pleural effusion. MMode/2D Measurements & Calculations LVIDd: 4.5 cm LVOT diam: 2.3 cm LVIDs: 3.1 cm Ao root diam: 3.7 cm FS: 31.4 % asc Aorta Diam: 3.4 cm EPSS: 1.4 cm IVSd: 1.5 cm LVPWd: 1.1 cm LV franco. diameter/BSA (cm/m^2): 2.0 LV sys. diameter/BSA (cm/m^2): 1.3 LA A2 area: 18.7 cm2 IVC diam: 1.7 cm LA A4 area: 28.5 cm2 LA length (vol): 6.7 cm LA vol: 67.2 ml LA vol index: 29.4 ml/m2 RVD1 (basal): 5.0 cm RVD2 (mid): 4.2 cm TAPSE: 3.2 cm Doppler Measurements & Calculations Ao V2 max: 180.2 cm/sec LVOT Max Ha: 127.3 cm/sec Ao V2 mean: 137.9 cm/sec LV V1 max P.5 mmHg Ao max P.0 mmHg LV V1 VTI: 28.7 cm Ao mean P.2 mmHg RELL(I,D): 2.9 cm2 Ao V2 VTI: 41.4 cm RELL(V,D): 3.0 cm2 sev ratio: 0.69 RELL indexed to BSA (cm^2/m^2): 1.3 MV E max ha: 56.2 cm/sec PA V2 max: 105.7 cm/sec MV A max ha: 68.9 cm/sec PA V2 mean: 68.4 cm/sec MV E/A: 0.82 PA mean P.1 mmHg Med Peak E' Ha: 5.2 cm/sec PA pr(Accel): 65.3 mmHg E/E' med: 10.9 Lat Peak E' Ha: 6.3 cm/sec E/E' lat: 8.9 E/e' average: 9.9 MV dec time: 0.25 sec SV(LVOT): 121.4 ml Reading Physician:BOGDAN
== END ==
LOC: ECHO 12:25
PROVIDERS: PCP Family Medicine; Referring Provider Family Medicine; Visit Provider Internal Medicine
DX: I38 Endocarditis, valve unspecified (principal); I34.81 Nonrheumatic mitral (valve) annulus calcification
CPT/HCPCS: C8929; Q9957